=== PATIENT | female | born 1935 | race American Indian/Alaskan Native ===

== ENCOUNTER 2018-01-07 15:57 | Inpatient (IN) | payer MEDICARE, BC ==
[2018-01-07 16:22] VITALS: BMI 32.8
[2018-01-07 17:39] LABS: PH,URINE 7.5 (4.7-8.0); URINE APPEARANCE CLOUDY (CLEAR); URINE BILIRUBIN NEGATIVE (NEGATIVE); URINE BLOOD LARGE (NEGATIVE); URINE COLOR YELLOW (YELLOW); URINE GLUCOSE (UA) NEGATIVE (NEGATIVE); URINE LEUKOCYTE ESTERASE LARGE Leu/uL (NEGATIVE); URINE PROTEIN >=300 mg/dL (<30 mg/dL)
--- NOTE | 2018-01-07 17:42 | RAD ---
Date of service: 01/07/2018 HISTORY: Sepsis Patient COMPARISON: No prior. FINDINGS: LUNGS: No active pulmonary disease. PLEURA: No significant pleural effusion identified, no pneumothorax apparent. CARDIOVASCULAR: No radiographic findings to suggest acute or significant cardiovascular disease. OSSEOUS STRUCTURES: No significant abnormalities. VISUALIZED UPPER ABDOMEN: Normal. OTHER FINDINGS: None. IMPRESSION: No active disease.
[2018-01-07 17:48] LABS: URINE BACTERIA LARGE (NEG); URINE WBC TNTC /hpf (0-6)
[2018-01-07 18:00] LABS: VENOUS BLOOD GAS BASE EXCESS 0.1 mmol/L (0.0-2.0); VENOUS BLOOD GAS PO2 153 mm/Hg (30-55); VENOUS BLOOD PH 7.36 (7.32-7.43)
[2018-01-07 18:13] LABS: BASO # 0.02 K/mm3 (0.0-2.0); BASO % 0.2 % (0.0-3.0); EOS # 0.1 (0.0-0.7); EOS % 1.4 % (1.5-5.0); GRAN # 6.15 (1.4-6.5); GRAN % 73.1 % (50.0-68.0); HEMOGLOBIN 12.7 g/dL (12.0-16.0); LYMPH # 1.5 (1.2-3.4); LYMPH % 17.5 % (22.0-35.0); MEAN CELL VOLUME 84.3 fl (80.0-105.0); MEAN CORPUSCULAR HEMOGLOBIN 28.1 pg (25.0-35.0); MEAN CORPUSCULAR HGB CONC 33.3 g/dl (31.0-37.0); MEAN PLATELET VOLUME 9.7 fl (7.0-11.0); MONO # 0.7 (0.1-0.6); MONO % 7.8 % (1.0-6.0); RBC 4.52 10^6/uL (3.5-6.1); RED CELL DISTRIBUTION WIDTH 16.3 % (11.5-14.5); WHITE BLOOD COUNT 8.4 10^3/ul (4.5-11.0)
[2018-01-07 18:23] LABS: INR 1.03; PARTIAL THROMBOPLASTIN TIME 30.1 Seconds (25.1-36.5); PROTHROMBIN TIME 11.8 SECONDS (9.4-12.5)
[2018-01-07] MEDS ORDERED: cefTRIAXone 1 gm 1 GM/100 ML BAG IVPB STA (18:47)
[2018-01-07 19:10] LABS: ALBUMIN 3.7 g/dL (3.0-4.8); ALT/SGPT 26 U/L (7-56); AST/SGOT 21 U/L (14-36); BLOOD UREA NITROGEN 20 mg/dL (7-21); CALCIUM 8.9 mg/dL (8.4-10.5); GFR NON-AFRICAN AMERICAN > 60
[2018-01-07 19:21] LABS: TROPONIN I < 0.01 ng/mL
--- NOTE | 2018-01-07 20:03 | ED PDOC ---
Arrival/HPI - General Time Seen by Provider: 01/07/18 16:22 Historian: Family - History of Present Illness Narrative History of Present Illness (Text): 01/07/18 20:05 82yo female with pmhx of hypertension, CVA referred to ED for UTI infection. Per the RN, the granddaughter states PMD sees patient at home and referred her to ED after a positive UTI test. 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 Past Medical History - Provider Review Nursing Documentation Reviewed: Yes - Cardiac Hx Hypertension: Yes - Neurological Other/Comment: aphasic - Integumentary Other/Comment: with healed right heel and sacral decub. - Musculoskeletal/Rheumatological Hx Falls: No - Gastrointestinal Other/Comment: with gtt intact. - Genitourinary/Gynecological Other/Comment: with 2way goodson cath intact. - Psychiatric Hx Substance Use: No - Surgical History Other/Comment: FEEDING TUBE INSERTION - Anesthesia Hx Anesthesia: Yes Hx Anesthesia Reactions: No Hx Malignant Hyperthermia: No Family/Social History - Physician Review Nursing Documentation Reviewed: Yes Family/Social History: Unknown Family HX Smoking Status: Unknown If Ever Smoked Hx Alcohol Use: No Hx Substance Use: No Allergies/Home Meds Allergies/Adverse Reactions: Allergies No Known Allergies Allergy (Verified 01/07/18 19:39) Home Medications: Home Meds Medication Instructions Recorded Confirmed Cyclobenzaprine [Flexeril] 10 mg PEG HS 01/07/18 01/07/18 Review of Systems - Review of Systems Systems not reviewed;Unavailable: Other (Aphasic) Physical Exam Vital Signs Reviewed: Yes Vital Signs Temp Pulse Resp BP Pulse Ox 01/07/18 19:49 98.6 F 82 20 139/93 H 100 01/07/18 16:18 98.7 F 84 19 136/64 95 Temperature: Afebrile Blood Pressure: Normal Pulse: Regular Respiratory Rate: Normal Appearance: Positive for: Well-Appearing, Non-Toxic, Comfortable Pain Distress: None Mental Status: Positive for: Alert and Oriented X 3 (X3) - Systems Exam Head: Present: Atraumatic, Normocephalic Pupils: Present: PERRL Extroacular Muscles: Present: EOMI Conjunctiva: Present: Normal Mouth: Present: Moist Mucous Membranes Neck: Present: Normal Range of Motion Respiratory/Chest: Present: Clear to Auscultation, Good Air Exchange. No: Respiratory Distress, Accessory Muscle Use Cardiovascular: Present: Regular Rate and Rhythm, Normal S1, S2. No: Murmurs Abdomen: Present: Feeding Tubes (PEg tube noted in place with purulent discharge noted around the tube). No: Tenderness, Distention, Peritoneal Signs Back: Present: Normal Inspection Upper Extremity: Present: Other (Contracted right upper extremity secondary to old CVA). No: Cyanosis, Edema Lower Extremity: Present: Normal Inspection, Other (Contracted right lower extre mity secondary to old CVA). No: Edema Skin: Present: Warm, Dry, Normal Color. No: Rashes Psychiatric: Present: Alert, Oriented x 3 (X2) Medical Decision Making ED Course and Treatment: 01/07/18 20:21 Pt in ED for stated history. she is nonverbal, hemodynamically stable. Labs Blood culture Urine culture VBG wound culture EKG CXR EKG NSR @ 86bpm NSTEMI CXR NAD Labs reviewed with no leukocytosis and no lactate. She have UTI and Rocephin was ordered 01/07/18 20:24 Case was DW Vibha Toscano while he was in ED and pt was admitted to his service. He requested Dr. Jefferson consult. - Lab Interpretations Lab Results: 01/07/18 18:06 01/07/18 18:45 Lab Results 01/07/18 18:45: Sodium 131 L, Chloride 101, Potassium 4.6, Carbon Dioxide 25, Anion Gap 10, BUN 20, Creatinine 0.3 L, Est GFR ( Amer) > 60, Est GFR (Non-Af Amer) > 60, Random Glucose 94, Calcium 8.9, Phosphorus 4.1, Magnesium 1.9, Total Bilirubin 0.8, AST 21, ALT 26, Alkaline Phosphatase 108, Troponin I < 0.01, Total Protein 7.3, Albumin 3.7, Globulin 3.6, Albumin/Globulin Ratio 1.0 L 01/07/18 18:06: PT 11.8, INR 1.03, APTT 30.1 01/07/18 18:06: WBC 8.4, RBC 4.52, Hgb 12.7, Hct 38.1, MCV 84.3, MCH 28.1, MCHC 33.3, RDW 16.3 H, Plt Count 390, MPV 9.7, Gran % 73.1 H, Lymph % (Auto) 17.5 L, [place] % (Auto) 7.8 H, Eos % (Auto) 1.4 L, Baso % (Auto) 0.2, Gran # 6.15, Lymph # (Auto) 1.5, [place] # (Auto) 0.7 H, Eos # (Auto) 0.1, Baso # (Auto) 0.02 01/07/18 17:15: Urine Color Yellow, Urine Appearance Cloudy, Urine pH 7.5, Ur Specific [place] 1.025, Urine Protein >=300 H, Urine Glucose (UA) Negative, Urine Ketones Negative, Urine Blood Large H, Urine Nitrate Negative, Urine Bilirubin Negative, Urine Urobilinogen 2.0 H, Ur Leukocyte Esterase Large H, Ur ine RBC 5 - 10, Urine WBC Tntc, Ur Epithelial Cells 3 - 4, Urine Bacteria Large 01/07/18 17:00: pO2 153 H, VBG pH 7.36, VBG pCO2 46.0, VBG HCO3 26.0, VBG Total CO2 27.4, VBG O2 Sat (Calc) 99.9 H, VBG Base Excess 0.1, VBG Potassium 6.3 H*, Sodium 128.0 L, Chloride 100.0, Glucose 99, Lactate 1.4, FiO2 21.0, Venous Blood Potassium 6.3 H* - RAD Interpretation Radiology Orders: 01/07/18 16:38 CHEST PORTABLE [RAD] Stat - Medication Orders Current Medication Orders: Discontinued Medications Ceftriaxone Sodium (Rocephin 1 Gram Ivpb) 1 gm in 100 mls @ 200 mls/hr IVPB STAT STA; Protocol Stop: 01/07/18 19:16 Last Admin: 01/07/18 19:59 Dose: 200 mls/hr eMAR Start Stop Document 01/07/18 19:59 LA (Rec: 01/07/18 20:00 LA [facility]) Intravenous Solution Start Date 01/07/18 Start Time 20:00 End Date 01/07/18 End time 20:30 Total Infusion Time 30 Disposition/Present on Arrival - Present on Arrival Any Indicators Present on Arrival: No History of DVT/PE: No History of Uncontrolled Diabetes: No Urinary Catheter: Yes (indwelling catheter) History Surgical Site Infection Following: None - Disposition Have Diagnosis and Disposition been Completed?: Yes Diagnosis: UTI (urinary tract infection) Disposition: HOSPITALIZED Disposition Time: 19:35 Patient Plan: Admission Patient Problems: Current Active Problems Problem Status Onset UTI (urinary tract infection) Acute Condition: FAIR
--- NOTE | 2018-01-07 23:16 | CARD ---
APPROVED REPORT Date of service: 01/07/2018 EKG Measurement Heart [id number] <Conclusion> Normal sinus rhythm Low voltage QRS Borderline ECG
[2018-01-07] MEDS: Sodium Chloride 0.45% 1,000 ML IV SCH (23:45)
[2018-01-08] MEDS: Pantoprazole 40 mg Susp UD PEG SCH (05:32)
[2018-01-08 06:26] LABS: HEMOGLOBIN 11.5 g/dL (12.0-16.0); MEAN CORPUSCULAR HEMOGLOBIN 27.4 pg (25.0-35.0); MEAN CORPUSCULAR HGB CONC 32.3 g/dl (31.0-37.0); MEAN PLATELET VOLUME 9.8 fl (7.0-11.0); RBC 4.19 10^6/uL (3.5-6.1); RED CELL DISTRIBUTION WIDTH 16.2 % (11.5-14.5); WHITE BLOOD COUNT 7.8 10^3/ul (4.5-11.0)
[2018-01-08 07:09] LABS: ALBUMIN 3.5 g/dL (3.0-4.8); ALT/SGPT 28 U/L (7-56); AST/SGOT 30 U/L (14-36); BLOOD UREA NITROGEN 14 mg/dL (7-21); GFR NON-AFRICAN AMERICAN > 60
--- NOTE | 2018-01-08 07:49 | HP ---
HISTORY OF PRESENT ILLNESS: I have known Bonny for a while now. I have been doing hospital course on her. She is basically bedridden from old CVAs. I discussed with the family today that there is a positive urinary tract infection. She had antibiotics from the outpatient and now she was sent to the emergency room. She is an 82-year-old -[place] female who has UTI from home. 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 She is aphasic. She opens her eyes. She has a two-way Fish. She has a feeding tube. She is nonverbal. Hypertension in the family. No smoke, no drinking, and no drugs. ALLERGIES: NO KNOWN DRUG ALLERGIES. MEDICATIONS: She is on aspirin, Nexium, Flexeril, Lopressor, and Norvasc at home. REVIEW OF SYSTEMS: She is aphasic, unable to talk, but I did ask her if she knew my voice and she shook her head yes, that is basically her baseline. PHYSICAL EXAMINATION: VITAL SIGNS: She has a 98.7 temp, 84 pulse, 19 respiratory rate, 136/64 blood pressure, and 95% O2 sat on room air. GENERAL: She is resting comfortably in bed. It looks like she sleeping, but she listens. No apparent toxicity, alert. HEENT: Head is atraumatic and normocephalic. Throat is dry. NECK: Supple. HEART: Regular rate. Normal S1 and S2. LUNGS: Decreased breath sounds bilaterally with poor inspiration. No wheezes, rhonchi, or rales. ABDOMEN: Soft and nontender. Positive bowel sounds. No apparent guarding or rebound. There is a PEG tube in place with purulent discharge noted on the tube. BACK: Difficult to tell at this time. EXTREMITIES: Well contracted. She has history of heel ulcers and sacral ulcers. NEUROLOGIC: She is alert. LABORATORY DATA: She has multiple tests done. She has a urine with large blood, large leukocyte esterase, and large bacteria. She has 131 sodium, potassium 4.6, BUN 20, creatinine 0.3, GFR is greater than 62, sugar is 94, calcium is 8.9, phosphorus 4.1, magnesium 1.9, total bili is 0.88, AST is 28, ALT is 26, alk phos 108, troponin I is less than 0.01, total protein is 7.3, albumin is 3.7. Blood gas, she has a lactate of 1.4. She has 1.03 INR, 8.4 white count, 12.7 hemoglobin, 38.1 hematocrit with 390 platelets. She has a chest x-ray, no acute disease. ASSESSMENT AND PLAN: She did have Rocephin IV, IV fluids. We put back on regular medications. She will have an infectious disease consult. She is here for urinary tract infection, possible percutaneous endoscopic gastrostomy tube infection. She will have a consult with Infectious Disease, will be on Rocephin, will check labs tomorrow. Domenic Dunne DO
[2018-01-08] MEDS: cefTRIAXone 1 gm 1 GM/100 ML BAG IVPB SCH (10:31)
--- NOTE | 2018-01-08 11:03 | PN ---
DATE: 01/08/2018 SUBJECTIVE: I saw her resting comfortably in bed. She was very alert. She was looking at me. Better than yesterday, a little out of it. Much improved, that is a good start. PHYSICAL EXAMINATION: VITAL SIGNS: 97.8 temp, 89 pulse, 116/67 blood pressure, 20 respiratory rate, 99% O2 sat on 2 L nasal cannula. GENERAL: She does not talk, but she does look and gives the expression. HEENT: Head is atraumatic, normocephalic. HEART: Regular rate. LUNGS: Decreased breath sounds, but clear. ABDOMEN: Soft, obese, nontender. Positive PEG tube. I am going to start PEG tube feedings today which she was getting at home at 30 mL an hour. I discussed that with the nurse. EXTREMITIES: Contracted. She had a UTI. LABORATORY DATA: She has a 7.8 white count, 11.5 hemoglobin, 35.6 hematocrit with 354 platelets. She has a 134 sodium, potassium is 4.2, BUN 14, creatinine 0.3, GFR is greater than 60, sugar is 91, calcium is 9, total bili is 0.9, AST is 30, ALT is 28, alk phos 104, troponin I is less than 0.01, total protein 7.1. Urine with large leukocytes, large blood, large bacteria. Waiting for the micro to come back. ASSESSMENT AND PLAN: She will be on IV antibiotics as per Infectious Disease and will call me if anything changes. She is here for a urinary tract infection. Domenic Dunne DO
--- NOTE | 2018-01-08 21:06 | CON ---
DATE: 01/08/2018 The patient is seen earlier today in room 362, bed 2. CHIEF COMPLAINT: Positive urine culture x1 day duration. HISTORY OF PRESENT ILLNESS: This is an 82-year-old female from home with hypertension, cerebrovascular accident, aphasia. The patient's PMD had ordered urine culture and the urine culture was positive. It is unclear if the patient had symptoms or if there was a change in mental status. Review of systems is difficult to obtain. No fevers reported here. No chills. No shortness of breath. No cough. No hemoptysis. No abdominal pain, diarrhea, constipation observed by the nursing staff. No rash. PAST MEDICAL HISTORY: Significant for hypertension, cerebrovascular accident, and aphasia. PAST SURGICAL HISTORY: Noncontributory. ALLERGIES: THE PATIENT HAS NO KNOWN ALLERGIES. MEDICATIONS AT HOME: Include Norvasc, Lopressor, Nexium, aspirin, and Flexeril. PHYSICAL EXAMINATION: On exam, she is in bed, appearing much older than her stated age with a blood pressure of 130/90, respiratory rate of 20. Examination of HEENT is unremarkable. Neck is supple. Lungs have decreased breath sounds. Heart exam, normal S1, S2. Abdomen examination is soft, nontender. No organomegaly. No rebound. No guarding. No masses. LABORATORY EXAMINATION: Reveals a white count of 8.4, hemoglobin of 12, and platelets of 390. Coagulation is noted and chemistries reveal a BUN of 20, creatinine of 0.3. Urinalysis is noted and too numerous to count wbc's, large bacteria, there is proteinuria, there is also large leukocyte esterase, and nitrites are negative. Microbiology is pending, and the patient's last year's microbiology did have Pseudomonas and Enterococcus in the urine. In 2017, also had Enterococcus in the urine, and the patient had a chest x-ray which was negative. EKG as noted. History and physical examination is reviewed. ASSESSMENT AND PLAN: This is an 82-year-old female from home with hypertension, cerebrovascular accident, aphasia with, 1. Urinary tract infection. We will check on the urine culture and blood cultures and currently start her on ceftriaxone, and we will make further recommendations upon availability. We will follow. Rafael MD Li [facility] # [phone]
[2018-01-09] MEDS: Sodium Chloride 0.45% 1,000 ML IV SCH (02:40)
[2018-01-09] MEDS: Pantoprazole 40 mg Susp UD PEG SCH (06:08)
[2018-01-09 06:29] LABS: HEMOGLOBIN 11.4 g/dL (12.0-16.0); MEAN CELL VOLUME 85.3 fl (80.0-105.0); MEAN CORPUSCULAR HEMOGLOBIN 27.4 pg (25.0-35.0); MEAN CORPUSCULAR HGB CONC 32.1 g/dl (31.0-37.0); MEAN PLATELET VOLUME 9.5 fl (7.0-11.0); RBC 4.16 10^6/uL (3.5-6.1); RED CELL DISTRIBUTION WIDTH 16.4 % (11.5-14.5); WHITE BLOOD COUNT 7.5 10^3/ul (4.5-11.0)
[2018-01-09 07:12] LABS: ALB/GLOB RATIO 0.9 (1.1-1.8); ALBUMIN 3.4 g/dL (3.0-4.8); ALT/SGPT 26 U/L (7-56); AST/SGOT 21 U/L (14-36); BLOOD UREA NITROGEN 11 mg/dL (7-21); CALCIUM 8.9 mg/dL (8.4-10.5); GFR NON-AFRICAN AMERICAN > 60
[2018-01-09] MEDS: cefTRIAXone 1 gm 1 GM/100 ML BAG IVPB SCH (09:53)
[2018-01-09] MEDS: metroNIDAZOLE IV 500 mg/100 ml 500 MG/100 ML BAG IVPB SCH ×2 (13:02→22:42)
--- NOTE | 2018-01-09 13:08 | RAD ---
Date of service: 01/09/2018 HISTORY: shortness of breath COMPARISON: 01/07/2018 FINDINGS: LUNGS: No active pulmonary disease. PLEURA: No significant pleural effusion identified, no pneumothorax apparent. CARDIOVASCULAR: No atherosclerotic calcification present Moderate cardiomegaly OSSEOUS STRUCTURES: No significant abnormalities. VISUALIZED UPPER ABDOMEN: Moderate size hiatal hernia OTHER FINDINGS: None. IMPRESSION: No active disease.
--- NOTE | 2018-01-09 14:16 | CP.PCM.PN ---
<Charlette Cooper - Last Filed: 01/09/18 17:03> Subjective - Date & Time of Evaluation Date of Evaluation: 01/09/18 Time of Evaluation: 10:45 - Subjective Subjective: PGY-1 Medicine Progress Note for Dr. James's service Patient seen and examined at bedside. Patient 12 point ROS limited secondary to patient clinical condition. Objective - Vital Signs/Intake and Output Vital Signs (last 24 hours): Temp Pulse Resp BP Pulse Ox 98.5 F 94 H 20 122/70 98 01/09/18 08:12 01/09/18 09:53 01/09/18 08:12 01/09/18 12:39 01/09/18 08:12 Intake and Output: 01/09/18 01/09/18 06:59 18:59 Intake Total 1810 Output Total 475 Balance 1335 - Medications Medications: Current Medications Amlodipine Besylate (Norvasc) 10 mg PEG DAILY [facility] Last Admin: 01/09/18 09:53 Dose: 10 mg Aspirin (Aspirin Chewable) 81 mg PEG DAILY ANTHONY Last Admin: 01/09/18 09:53 Dose: 81 mg Cyclobenzaprine HCl (Flexeril) 10 mg PEG HS [facility]ONY Last Admin: 01/08/18 22:20 Dose: 10 mg Sodium Chloride (Sodium Chloride 0.45%) 1,000 mls @ 40 mls/hr IV .Q24H [facility]ONY Last Admin: 01/09/18 02:40 Dose: 40 mls/hr Ceftriaxone Sodium (Rocephin 1 Gram Ivpb) 1 gm in 100 mls @ 100 mls/hr IVPB DAILY ANTHONY; Protocol Last Admin: 01/09/18 09:53 Dose: 100 mls/hr Metronidazole (Flagyl) 500 mg in 100 mls @ 100 mls/hr IVPB Q8 ANTHONY; Protocol Last Admin: 01/09/18 13:02 Dose: 100 mls/hr Metoprolol Tartrate (Lopressor) 25 mg PO BID AN[facility]ONY Last Admin: 01/09/18 09:53 Dose: 25 mg Pantoprazole Sodium (Protonix Susp) 40 mg PEG 0600 ANTHONY Last Admin: 01/09/18 06:08 Dose: 40 mg - Labs Labs: 01/09/18 05:20 01/09/18 05:20 PT 11.8 SECONDS (9.4-12.5) 01/07/18 18:06 INR 1.03 01/07/18 18:06 APTT 30.1 Seconds (25.1-36.5) 01/07/18 18:06 - Constitutional Appears: Non-toxic, No Acute Distress - Head Exam Head Exam: NORMAL INSPECTION, NORMOCEPHALIC - Eye Exam Eye Exam: EOMI, Normal appearance. absent: Nystagmus, Scleral icterus - ENT Exam ENT Exam: Mucous Membranes Moist - Respiratory Exam Respiratory Exam: Clear to Ausculation Bilateral. absent: Rales, Rhonchi, Wheezes, Respiratory Distress - Cardiovascular Exam Cardiovascular Exam: REGULAR RHYTHM, +S1, +S2 - GI/Abdominal Exam GI & Abdominal Exam: Soft, Normal Bowel Sounds. absent: Distended, Firm, Guarding, Tenderness Additional comments: Has PEG tube in place Suprapubic catheter with 2 way goodson - Extremities Exam Extremities Exam: Normal Inspection. absent: Calf Tenderness, Pedal Edema - Back Exam Additional comments: sacral ulcers - Neurological Exam Neurological Exam: Alert, Awake - Skin Additional comments: sacral ulcers and foot ulcers noted Assessment and Plan - Assessment and Plan (Free Text) Assessment: 82 yo w/ PMHx of hypertension and CVA referred to ED for UTI infection. Patient urine cx positive for E coli and Enterococcus faceaelis. Wound culture positive gram negative rods. Plan: UTI 01/07 U/A- shows large L.E; large blood; large bacteria ID consulted- Dr. Jefferson- recommendations appreciated Afebrile; no leukocytosis noted Rocephin 1 gm IVPB PEG tube infection Wound cx positive for gram negative olive Metronidazole 500mg IVPB q8 Tube feeds at 30mls/hr -held Labored Breathing 01/09/18- Cxray shows no signs of active disease ABG non concerning 1x dose of Lasix 20mg IVP once 92 % o2 sat on 3L n.c HTN Amlodipine 10mg peg daily Metoprolol 25mg po bid Hx of CVA Patient aphasic; bedridden Aspirin 81mg PEG daily Cyclobenzaprine 10 mg peg HS PPx GI ppx- Protonix 40mg po HS <Umesh James - Last Filed: 01/11/18 14:26> Objective - Vital Signs/Intake and Output Vital Signs (last 24 hours): Temp Pulse Resp BP Pulse Ox 99.3 F 90 20 126/68 98 10/20/18 08:27 01/11/18 10:24 01/11/18 08:27 01/11/18 10:24 01/11/18 08:27 Intake and Output: 01/11/18 01/11/18 06:59 18:59 Output Total 1410 Balance -1410 - Medications Medications: Current Medications Amlodipine Besylate (Norvasc) 10 mg PEG DAILY [facility] Last Admin: 01/11/18 10:24 Dose: 10 mg Aspirin (Aspirin Chewable) 81 mg PEG DAILY AN[facility]ONY Last Admin: 01/11/18 10:23 Dose: 81 mg Cyclobenzaprine HCl (Flexeril) 10 mg PEG HS ANTHONY Last Admin: 01/10/18 21:28 Dose: 10 mg Heparin Sodium (Porcine) (Heparin) 5,000 units SC Q8 ANTHONY; Protocol Last Admin: 01/11/18 14:17 Dose: 5,000 units Metronidazole (Flagyl) 500 mg in 100 mls @ 100 mls/hr IVPB Q8 ANTHONY; Protocol Last Admin: 01/11/18 14:18 Dose: 100 mls/hr Cefepime HCl (Maxipime 1gm) 1 gm in 100 mls @ 25 mls/hr IVPB Q8 ANTHONY; Protocol Stop: 01/15/18 14:01 Last Admin: 01/11/18 05:28 Dose: 25 mls/hr Metoprolol Tartrate (Lopressor) 25 mg PO BID [facility] Last Admin: 01/11/18 10:24 Dose: 25 mg Pantoprazole Sodium (Protonix Susp) 40 mg PEG 0600 ANTHONY Last Admin: 01/11/18 05:28 Dose: 40 mg - Labs Labs: 01/11/18 07:00 01/11/18 07:00 PT 11.8 SECONDS (9.4-12.5) 01/07/18 18:06 INR 1.03 01/07/18 18:06 APTT 30.1 Seconds (25.1-36.5) 01/07/18 18:06 Attending/Attestation - Attestation I have personally seen and examined this patient.: Yes I have fully participated in the care of the patient.: Yes I have reviewed all pertinent clinical information, including history, physical exam and plan: Yes Notes (Text): 01/11/18 14:25 Medical record note made by the resident after discussion with my direction and input after the patient was personally seen and examined by me. I have reviewed the chart and agree that the record accurately reflects by personal performance of the history, physical exam, data review, and medical decision-making, in the course for the patient. I have also personally directed the plan of care. Patient was found top be hypoxic and dyspnic, likely due to Aspiration.Chest X ray is off poor quality.Flagyl has been added to cover for aspiration Pneumonia. Prognosis is guarded
[2018-01-09 14:27] LABS: ARTERIAL BLOOD GAS HCO3 24.2 mmol/L (21-28); ARTERIAL BLOOD GAS O2 SAT 99.4 % (95-98); ARTERIAL BLOOD GAS PCO2 34 mm/Hg (35-45); ARTERIAL BLOOD GAS PH 7.46 (7.35-7.45); ARTERIAL BLOOD GAS TCO2 25.2 mmol.L (22-28)
--- NOTE | 2018-01-09 15:05 | PN ---
DATE: 01/09/2018 SUBJECTIVE: The patient is seen earlier today in 362, bed 2. No fevers and no chills. Overall in poor condition, though. PHYSICAL EXAMINATION: VITAL SIGNS: On exam, temperature is 98, blood pressure is 120/70, respiratory rate of 20, heart rate of 94. HEENT: Examination of HEENT is unremarkable. NECK: Supple. LUNGS: Have decreased breath sounds. HEART: Normal S1, S2. ABDOMEN: Soft, nontender. LABORATORY DATA: Laboratory examination reveals the patient to have white count of 7.5, hemoglobin of 11, platelets of 334. Chemistries: BUN of 11, creatinine of 0.4. Urinalysis is noted. Microbiology is reviewed. Blood cultures are negative. Urine culture has E. coli and Enterococcus. Abdominal culture has gram-negative olive. Review of orders reveals the patient to be on Flagyl and ceftriaxone. The E. coli in the urine culture is resistant to Cipro. It is sensitive to ceftriaxone. The patient had a chest x-ray. No active disease. ASSESSMENT AND PLAN: An 82-year-old female with hypertension, cerebrovascular accident, aphasia with #1 is Escherichia coli and Enterococcus urinary tract infection. Currently on ceftriaxone. The patient is also on Flagyl. We will follow with you. Rafael Jefferson MD
[2018-01-10] MEDS: Sodium Chloride 0.45% 1,000 ML IV SCH (05:37)
[2018-01-10] MEDS: metroNIDAZOLE IV 500 mg/100 ml 500 MG/100 ML BAG IVPB SCH ×3 (05:38→21:27)
[2018-01-10] MEDS: Pantoprazole 40 mg Susp UD PEG SCH (05:39)
--- NOTE | 2018-01-10 06:15 | PQF ---
PROVIDER RESPONSE TEXT: No uti , pos urine culture colinizer not a pathogen Peg tube did contribute to peg site infection REVIEWER QUERY TEXT: Cause and Effect Relationship Please clarify in documentation the relationship, if any, between and Such as: -- Conditions are due to or associated -- Unrelated to each other -- Other, please specify The patient's Clinical Indicators include: Query created by: Brianne Smart on 01/09/2018 10:20 AM Electronically signed by: Rafael Jefferson MD 01/10/2018 6:11 AM
[2018-01-10 08:56] LABS: BASO # 0.01 K/mm3 (0.0-2.0); BASO % 0.1 % (0.0-3.0); EOS # 0.1 (0.0-0.7); EOS % 0.8 % (1.5-5.0); GRAN # 6.55 (1.4-6.5); GRAN % 78.7 % (50.0-68.0); HEMOGLOBIN 11.8 g/dL (12.0-16.0); LYMPH # 0.9 (1.2-3.4); LYMPH % 10.3 % (22.0-35.0); MEAN CELL VOLUME 84.4 fl (80.0-105.0); MEAN CORPUSCULAR HEMOGLOBIN 27.5 pg (25.0-35.0); MEAN CORPUSCULAR HGB CONC 32.6 g/dl (31.0-37.0); MEAN PLATELET VOLUME 9.2 fl (7.0-11.0); MONO # 0.8 (0.1-0.6); MONO % 10.1 % (1.0-6.0); RBC 4.29 10^6/uL (3.5-6.1); RED CELL DISTRIBUTION WIDTH 16.1 % (11.5-14.5); WHITE BLOOD COUNT 8.3 10^3/ul (4.5-11.0)
[2018-01-10] MEDS: cefTRIAXone 1 gm 1 GM/100 ML BAG IVPB SCH (09:29)
--- NOTE | 2018-01-10 12:49 | CP.PCM.PN ---
<Charlette Cooper - Last Filed: 01/10/18 12:46> Subjective - Date & Time of Evaluation Date of Evaluation: 01/10/18 Time of Evaluation: 10:15 - Subjective Subjective: PGY-1 Medicine Progress note for Dr. James's service Patient seen and examined at bedside. 12 point ROS limited 2/2 patient clinical condition. Objective - Vital Signs/Intake and Output Vital Signs (last 24 hours): Temp Pulse Resp BP Pulse Ox 98.8 F 94 H 18 124/77 99 01/10/18 06:00 01/10/18 09:30 01/10/18 06:00 01/10/18 09:30 01/10/18 06:00 Intake and Output: 01/10/18 01/10/18 06:59 18:59 Intake Total 675 Output Total 400 Balance 275 - Medications Medications: Current Medications Amlodipine Besylate (Norvasc) 10 mg PEG DAILY [facility] Last Admin: 01/10/18 09:29 Dose: 10 mg Aspirin (Aspirin Chewable) 81 mg PEG DAILY [facility] Last Admin: 01/10/18 09:29 Dose: 81 mg Cyclobenzaprine HCl (Flexeril) 10 mg PEG HS [facility] Last Admin: 01/09/18 22:44 Dose: 10 mg Metronidazole (Flagyl) 500 mg in 100 mls @ 100 mls/hr IVPB Q8 [facility]; Protocol Last Admin: 01/10/18 05:38 Dose: 100 mls/hr Cefepime HCl (Maxipime 1gm) 1 gm in 100 mls @ 25 mls/hr IVPB Q8 [facility]; Protocol Stop: 01/15/18 14:01 Metoprolol Tartrate (Lopressor) 25 mg PO BID [facility] Last Admin: 01/10/18 09:30 Dose: 25 mg Pantoprazole Sodium (Protonix Susp) 40 mg PEG 0600 [facility] Last Admin: 01/10/18 05:39 Dose: 40 mg - Labs Labs: 01/10/18 08:30 01/09/18 05:20 PT 11.8 SECONDS (9.4-12.5) 01/07/18 18:06 INR 1.03 01/07/18 18:06 APTT 30.1 Seconds (25.1-36.5) 01/07/18 18:06 - Additional Findings Additional findings: - Constitutional Appears: Non-toxic, No Acute Distress - Head Exam Head Exam: NORMAL INSPECTION, NORMOCEPHALIC - Eye Exam Eye Exam: EOMI, Normal appearance. absent: Nystagmus, Scleral icterus - ENT Exam ENT Exam: Mucous Membranes Moist - Respiratory Exam Respiratory Exam: Clear to Ausculation Bilateral. absent: Rales, Rhonchi, Wheezes, Respiratory Distress - Cardiovascular Exam Cardiovascular Exam: REGULAR RHYTHM, +S1, +S2 - GI/Abdominal Exam GI & Abdominal Exam: Soft, Normal Bowel Sounds. absent: Distended, Firm, Guarding, Tenderness Additional comments: Has PEG tube in place Suprapubic catheter with 2 way goodson - Extremities Exam Extremities Exam: Normal Inspection. absent: Calf Tenderness, Pedal Edema - Back Exam Additional comments: sacral ulcers - Neurological Exam Neurological Exam: Alert, Awake - Skin Additional comments: sacral ulcers and foot ulcers noted Assessment and Plan - Assessment and Plan (Free Text) Assessment: 82 yo w/ PMHx of hypertension and CVA referred to ED for UTI infection. Patient urine cx positive for E coli and Enterococcus faceaelis. Wound culture positive gram negative rods and positive for pseudmonoas aerigunosa Plan: UTI 01/07 U/A- shows large L.E; large blood; large bacteria ID consulted- Dr. Jefferson- flagyl, cefepime Afebrile; no leukocytosis noted Cefepime 1gm IVPB q8 [facility] (started at 01-10) Flagyl 500mg IVPB q8 [facility] (started 01-10) PEG tube infection Wound cx positive for gram negative olive and pseudomonas Metronidazole 500mg IVPB q8 Tube feeds at 30mls/hr HTN Amlodipine 10mg peg daily Metoprolol 25mg po bid Hx of CVA Patient aphasic; bedridden Aspirin 81mg PEG daily Cyclobenzaprine 10 mg peg HS PPx GI ppx- Protonix 40mg po HS DVT ppx- Heparin 5000 units sc q8 Medical Management discussed with Dr. James PGY-1 Charlette Cooper <Umesh James - Last Filed: 01/11/18 14:25> Objective - Vital Signs/Intake and Output Vital Signs (last 24 hours): Temp Pulse Resp BP Pulse Ox 99.3 F 90 20 126/68 98 01/11/18 08:27 01/11/18 10:24 01/11/18 08:27 01/11/18 10:24 01/11/18 08:27 Intake and Output: 01/11/18 01/11/18 06:59 18:59 Output Total 1410 Balance -1410 - Medications Medications: Current Medications Amlodipine Besylate (Norvasc) 10 mg PEG DAILY [facility] Last Admin: 01/11/18 10:24 Dose: 10 mg Aspirin (Aspirin Chewable) 81 mg PEG DAILY [facility] Last Admin: 01/11/18 10:23 Dose: 81 mg Cyclobenzaprine HCl (Flexeril) 10 mg PEG HS [facility] Last Admin: 01/10/18 21:28 Dose: 10 mg Heparin Sodium (Porcine) (Heparin) 5,000 units SC Q8 [facility]; Protocol Last Admin: 01/11/18 14:17 Dose: 5,000 units Metronidazole (Flagyl) 500 mg in 100 mls @ 100 mls/hr IVPB Q8 [facility]; Protocol Last Admin: 01/11/18 14:18 Dose: 100 mls/hr Cefepime HCl (Maxipime 1gm) 1 gm in 100 mls @ 25 mls/hr IVPB Q8 [facility]; Protocol Stop: 01/15/18 14:01 Last Admin: 01/11/18 05:28 Dose: 25 mls/hr Metoprolol Tartrate (Lopressor) 25 mg PO BID [facility] Last Admin: 01/11/18 10:24 Dose: 25 mg Pantoprazole Sodium (Protonix Susp) 40 mg PEG 0600 [facility] Last Admin: 01/11/18 05:28 Dose: 40 mg - Labs Labs: 01/11/18 07:00 01/11/18 07:00 PT 11.8 SECONDS (9.4-12.5) 01/07/18 18:06 INR 1.03 01/07/18 18:06 APTT 30.1 Seconds (25.1-36.5) 01/07/18 18:06 Attending/Attestation - Attestation I have personally seen and examined this patient.: Yes I have fully participated in the care of the patient.: Yes I have reviewed all pertinent clinical information, including history, physical exam and plan: Yes Notes (Text): 01/11/18 14:24 Medical record note made by the resident after discussion with my direction and input after the patient was personally seen and examined by me. I have reviewed the chart and agree that the record accurately reflects by personal performance of the history, physical exam, data review, and medical decision-making, in the course for the patient. I have also personally directed the plan of care.
[2018-01-10] MEDS: Cefepime 1gm in NS 100ml 1 GM/100 ML BAG IVPB SCH ×2 (13:13→21:30)
--- NOTE | 2018-01-10 19:20 | PN ---
DATE: 01/10/2018 SUBJECTIVE: The patient is in bed, in no acute distress, nontoxic. PHYSICAL EXAMINATION: VITAL SIGNS: Temperature is 98, blood pressure is 120/70, respiratory rate of 18, heart rate of 94. HEENT: Examination of HEENT is unremarkable. NECK: Supple. LUNGS: Have decreased breath sounds. HEART: Normal S1 and S2. ABDOMEN: Soft, nontender. LABORATORY DATA: Laboratory examination reveals a white count of 8.3, hemoglobin of 11, platelets of 309. Chemistries reveals a BUN of 11, creatinine of 0.4. Urinalysis is noted. Microbiology is noted. ASSESSMENT AND PLAN: An 82-year-old female with hypertension, cerebrovascular accident, aphasia with #1 is Escherichia coli and Enterococcus urinary tract infection. The patient is also most likely a colonizer because of difficult to tell . The patient also does have Pseudomonas from the percutaneous endoscopic gastrostomy tube site, which appears to be improving. Currently, on cefepime and Flagyl. We will complete with a short course of antibiotics. Rafael Jefferson MD
[2018-01-11] MEDS: metroNIDAZOLE IV 500 mg/100 ml 500 MG/100 ML BAG IVPB SCH ×2 (05:27→14:18)
[2018-01-11] MEDS: Pantoprazole 40 mg Susp UD PEG SCH (05:28)
[2018-01-11] MEDS: Cefepime 1gm in NS 100ml 1 GM/100 ML BAG IVPB SCH ×3 (05:28→22:06)
[2018-01-11 07:59] LABS: BASO # 0.01 K/mm3 (0.0-2.0); BASO % 0.2 % (0.0-3.0); EOS # 0.1 (0.0-0.7); EOS % 1.4 % (1.5-5.0); GRAN # 4.67 (1.4-6.5); GRAN % 72.9 % (50.0-68.0); HEMOGLOBIN 11.3 g/dL (12.0-16.0); LYMPH # 0.9 (1.2-3.4); LYMPH % 13.8 % (22.0-35.0); MEAN CELL VOLUME 83.9 fl (80.0-105.0); MEAN CORPUSCULAR HEMOGLOBIN 27.2 pg (25.0-35.0); MEAN CORPUSCULAR HGB CONC 32.4 g/dl (31.0-37.0); MEAN PLATELET VOLUME 9.7 fl (7.0-11.0); MONO # 0.8 (0.1-0.6); MONO % 11.7 % (1.0-6.0); RBC 4.16 10^6/uL (3.5-6.1); RED CELL DISTRIBUTION WIDTH 16.1 % (11.5-14.5); WHITE BLOOD COUNT 6.4 10^3/ul (4.5-11.0)
[2018-01-11 08:06] LABS: ALB/GLOB RATIO 0.9 (1.1-1.8); ALBUMIN 3.3 g/dL (3.0-4.8); ALT/SGPT 25 U/L (7-56); AST/SGOT 24 U/L (14-36); BLOOD UREA NITROGEN 12 mg/dL (7-21); CALCIUM 8.4 mg/dL (8.4-10.5); GFR NON-AFRICAN AMERICAN > 60
[2018-01-11 08:27] VITALS: RESP 20; O2SAT 98
--- NOTE | 2018-01-11 13:58 | PN ---
DATE: 01/11/2018 SUBJECTIVE: I saw Bonny resting comfortably in bed. She is here with UTI and IV antibiotics. 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 She looks calm. She looked at me that is her baseline. OBJECTIVE: VITAL SIGNS: She has a 99.3 temperature, 90 pulse, 126/60 blood pressure, 20 respiratory rate, 98% O2 sat on 2 liters. GENERAL: She is nonverbal. HEENT: Head is atraumatic, normocephalic. HEART: Regular rate with decreased breath sounds, but clear. ABDOMEN: Soft. EXTREMITIES: Contracted. No edema. CURRENT MEDICATIONS: She is currently on aspirin, Flagyl IV, Flexeril, heparin, Lopressor, Maxipime IV, Norvasc, and Protonix. LABORATORY DATA: She has a 132 sodium, potassium 3.7, BUN 12, creatinine 0.3, GFR is greater than 60, sugar 97, calcium 8.4, total bili is 0.9, AST is 24, ALT is 25, alk phos 104, total protein 6.9. 6.4 white count, 11.3 hemoglobin, 34.9 hematocrit with 380 platelets. She had a Pseudomonas aeruginosa and E. coli in cultures. ASSESSMENT AND PLAN: She is being seen by Infectious Disease, where Infectious Disease tells me to take her off the IV and put her on p.o. I will discharge her home. I will continue with aggressive treatment and care on Bonny Ott. We will check her labs tomorrow. Hopefully, soon we can get her transferred to p.o. and discharge. Here for urinary tract infection. Thank you very much. Domenic Dunne DO
[2018-01-11 21:05] LABS: URINE BILIRUBIN NEGATIVE (NEGATIVE); URINE BLOOD SMALL (NEGATIVE); URINE GLUCOSE (UA) NEGATIVE (NEGATIVE); URINE LEUKOCYTE ESTERASE LARGE Leu/uL (NEGATIVE); URINE PROTEIN NEGATIVE mg/dL (<30 mg/dL); URINE UROBILINOGEN 0.2 E.U./dL (<1 E.U./dL)
[2018-01-11 21:06] LABS: URINE APPEARANCE SLIGHT-CLOUDY (CLEAR); URINE COLOR YELLOW (YELLOW)
[2018-01-11 21:13] LABS: URINE EPITHELIAL CELLS 0 - 2 /hpf (0-5)
[2018-01-11 21:14] LABS: URINE BACTERIA SMALL (NEG)
--- NOTE | 2018-01-12 01:06 | PN ---
DATE: 01/11/2018 SUBJECTIVE: The patient is in bed, no acute distress, nontoxic. PHYSICAL EXAMINATION: VITAL SIGNS: The patient has a temperature of 100.3, blood pressure is 130/80, respiratory rate of 18. HEENT: Unremarkable. NECK: Supple. LUNGS: Have decreased breath sounds. HEART: Normal S1 and S2. ABDOMEN: Soft. LABORATORY DATA: Reveals a white count of 6.4 and hemoglobin 11. BUN of 12 and creatinine of 0.3. Urinalysis is noted and microbiology reveals the patient's abdomen has Pseudomonas, Klebsiella, Staph aureus. Blood cultures are negative. ASSESSMENT AND PLAN: This is an 82-year-old female with hypertension, cerebrovascular accident, and aphasia. Escherichia coli, Enterococcus urinary tract infection, most likely a colonizer, does have Pseudomonas, percutaneous tube. On today's exam, PEG tube is better and resolved. The patient did have a new fever of 100.3 today in the phase of cefepime and Flagyl therapy. We will discontinue the Flagyl. We will repeat pancultures and chest x-ray and we will also order urinalysis, urine culture, sputum culture, and procalcitonin. We will order a portable chest x-ray. We will follow closely with you. Rafael Jfeferson MD
[2018-01-12] MEDS: Pantoprazole 40 mg Susp UD PEG SCH (05:47)
[2018-01-12] MEDS: Cefepime 1gm in NS 100ml 1 GM/100 ML BAG IVPB SCH (05:47)
[2018-01-12 06:54] LABS: HEMOGLOBIN 11.7 g/dL (12.0-16.0); MEAN CELL VOLUME 84.2 fl (80.0-105.0); MEAN CORPUSCULAR HEMOGLOBIN 26.8 pg (25.0-35.0); MEAN CORPUSCULAR HGB CONC 31.9 g/dl (31.0-37.0); MEAN PLATELET VOLUME 9.6 fl (7.0-11.0); RBC 4.36 10^6/uL (3.5-6.1); WHITE BLOOD COUNT 6.8 10^3/ul (4.5-11.0)
[2018-01-12 07:00] LABS: ALB/GLOB RATIO 0.9 (1.1-1.8); ALBUMIN 3.5 g/dL (3.0-4.8); ALT/SGPT 22 U/L (7-56); AST/SGOT 19 U/L (14-36); BLOOD UREA NITROGEN 11 mg/dL (7-21); CALCIUM 8.9 mg/dL (8.4-10.5); GFR NON-AFRICAN AMERICAN > 60
[2018-01-12 07:40] VITALS: BP 128/76; PULSE 79; TEMP 98.7
--- NOTE | 2018-01-12 10:53 | RAD ---
Date of service: 01/11/2018 HISTORY: fever COMPARISON: 01/07/2018 and 01/09/2018 FINDINGS: LUNGS: No active pulmonary disease. PLEURA: No significant pleural effusion identified, no pneumothorax apparent. CARDIOVASCULAR: No atherosclerotic calcification present Normal. OSSEOUS STRUCTURES: No significant abnormalities. VISUALIZED UPPER ABDOMEN: Normal. OTHER FINDINGS: Stable hiatal hernia. IMPRESSION: No active disease. No significant interval change compared to the prior examination(s).
--- NOTE | 2018-01-12 18:07 | PN ---
DATE: 01/12/2018 SUBJECTIVE: The patient is in bed, in no acute distress. PHYSICAL EXAMINATION: VITAL SIGNS: Temperature is 98, T-max last night was 100.3; heart rate of 99, heart rate is now down to 79 today; her blood pressure is 120/70; respiratory rate of 20. HEENT: Unremarkable. NECK: Supple. HEART: Normal S1, S2. LUNGS: Have decreased breath sounds. ABDOMEN: Soft, nontender. LABORATORY DATA: Reveals a white count of 6.8, hemoglobin of 11, BUN of 11, creatinine of 0.3. Urinalysis is noted. Microbiology is reviewed. Abdominal culture shows Pseudomonas, Klebsiella, and staph and blood cultures are negative. Urine cultures shows E. coli and Enterococcus. Review of orders reveals the patient to be on cefepime. The patient also had a repeat chest x-ray last night which the results are pending and repeat urine cultures and blood cultures and those results are pending. ASSESSMENT AND PLAN: This is an 82-year-old female with hypertension, cerebrovascular accident and aphasia with Escherichia coli, Enterococcus, most likely a colonizer with Pseudomonas, percutaneous tube, and the percutaneous endoscopic gastrostomy tube is better with a new fever and on cefepime. We will check repeat cultures and workup and chest x-ray. If all is negative, we will discontinue the antibiotics, should consider supportive care for this patient who has end-stage decubiti and poor quality of life. Rafael Jefferson MD
--- NOTE | 2018-01-13 19:49 | DS ---
HISTORY OF PRESENT ILLNESS: I saw resting comfortably in bed. She is alert. Her eyes are open at the baseline, but she didn't recognize me I feel. 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 She is comfortable. She is off IV antibiotics as per Infectious Disease. She is on aspirin, Flexeril, heparin, and Lopressor. She was on Maxipime, Norvasc, and Protonix. PHYSICAL EXAMINATION: VITAL SIGNS: Her vital signs are 98.7 temp, 79 pulse, 128/76 blood pressure, 20 respiratory rate and 90% O2 sat on room air. HEENT: Head is atraumatic and normocephalic. HEARTS: Regular rate. LUNGS: Decreased breath sounds, but clear. ABDOMEN: Soft. EXTREMITIES: No edema. She has a feeding tube and a Fish and she has definitely improved. Clinically, she looks very well. She had enterococcus urinary tract infection with pseudomonas, percutaneous tube, Infectious Disease having stopped IV antibiotics and we may discharge her home today. LABORATORY DATA: She has a 6.8 white count, 11.7 hemoglobin, 36.7 hematocrit, 319 of platelets. She has 135 sodium, potassium 3.9, BUN 11, creatinine 0.3, GFR is greater than 60, sugar is 98, calcium is 8.9, total bili is 0.8, AST is 19, ALT is 22, alk phos 98, total protein 7.2 and the urine is now down to small bacteria, it was large when she came in. She has improved. She will be discharged home on her regular medications. I will see her on a house call and prescriptions were written, discussed with the nurse and I got the okay from the Infectious Disease to discharge her. She was here for UTI. Domenic Dunne DO
== END 2018-01-12 15:59 | disposition home or self-care (01) | DRG 394 ==
LOC: ED 15:57 → ERH 18:49 → 3RNO 22:16
PROVIDERS: ADMIT Family Medicine; ATTEND Family Medicine
DX: K94.22 Gastrostomy infection (principal); N39.0 Urinary tract infection, site not specified; B96.5 Pseudomonas (aeruginosa) (mallei) (pseudomallei) as the cause of diseases classified elsewhere; B95.2 Enterococcus as the cause of diseases classified elsewhere; B96.20 Unspecified Escherichia coli [E. coli] as the cause of diseases classified elsewhere; I10 Essential (primary) hypertension; R09.02 Hypoxemia; I69.320 Aphasia following cerebral infarction; Z74.01 Bed confinement status; Z79.82 Long term (current) use of aspirin

== ENCOUNTER 2018-06-17 14:42 | Inpatient (IN) | payer BC, MEDICARE ==
[2018-06-17 15:20] VITALS: BMI 36.6
--- NOTE | 2018-06-17 15:59 | ED PDOC ---
Arrival/HPI - General Chief Complaint: Abnormal Labs Historian: Caregiver EM Caveat: Other (baseline mental state) - History of Present Illness Narrative History of Present Illness (Text): 06/17/18 15:56 83 year old female, whose past medical history includes CVA and hypertension, presents to the emergency department sent in by Dr. Dunne for abnormal blood work. Patient here with manager ed who reports discharge around PEG tube and possible UTI. Denies any history of any known fever or vomiting. Patient has a history of CVA and is at baseline with mental status. HPI and ROS limited due to patient's baseline mental state. PMD: Dr. Dunne Past Medical History - Provider Review Nursing Documentation Reviewed: Yes - Cardiac Hx Hypertension: Yes - Neurological Other/Comment: aphasic - Integumentary Other/Comment: with healed right heel and sacral decub. - Musculoskeletal/Rheumatological Hx Falls: Yes - Gastrointestinal Other/Comment: with gtt intact. - Genitourinary/Gynecological Other/Comment: with 2way goodson cath intact. - Psychiatric Hx Substance Use: No - Surgical History Other/Comment: FEEDING TUBE INSERTION - Anesthesia Hx Anesthesia: Yes Hx Anesthesia Reactions: No Hx Malignant Hyperthermia: No Family/Social History - Physician Review Nursing Documentation Reviewed: Yes Family/Social History: No Known Family HX Smoking Status: Unknown If Ever Smoked Hx Alcohol Use: No Hx Substance Use: No Allergies/Home Meds Allergies/Adverse Reactions: Allergies No Known Allergies Allergy (Verified 01/07/18 19:39) Review of Systems - Physician Review All systems were reviewed & negative as marked: Yes - Review of Systems Systems not reviewed;Unavailable: Other (Baseline mental state) Constitutional: absent: Fevers Gastrointestinal: absent: Vomiting Physical Exam Vital Signs Reviewed: Yes Vital Signs Pulse Resp BP Pulse Ox 06/17/18 14:43 83 18 131/74 95 Blood Pressure: Normal Pulse: Regular Respiratory Rate: Normal Appearance: Positive for: Well-Appearing, Non-Toxic, Comfortable Pain Distress: None Mental Status: Positive for: other (Alert ) - Systems Exam Head: Present: Atraumatic, Normocephalic Pupils: Present: PERRL Extroacular Muscles: Present: EOMI Conjunctiva: Present: Normal Mouth: Present: Moist Mucous Membranes Neck: Present: Normal Range of Motion Respiratory/Chest: Present: Clear to Auscultation, Good Air Exchange. No: Respiratory Distress, Accessory Muscle Use Cardiovascular: Present: Murmurs (systolic), Irregular Rhythm Abdomen: Present: Feeding Tubes (with some yellowsh muus around the site, mild erythema), Other (indwelling goodson). No: Tenderness, Distention, Peritoneal Signs Back: Present: Normal Inspection Upper Extremity: Present: Other (extremities contracted). No: Cyanosis, Edema Lower Extremity: Present: Other (extremities contracted). No: Edema Neurological: Present: GCS=15, CN II-XII Intact, Speech Normal Skin: Present: Warm, Dry, Normal Color. No: Rashes Psychiatric: Present: Alert, Oriented x 3, Normal Insight, Normal Concentration Medical Decision Making ED Course and Treatment: 06/17/18 16:05 Impression: 83 year old female sent in by Dr. Dunne for evaluation of abnormal blood work. Caregiver reports discharge around PEG tube and possible UTI. Plan: -- Labs -- Blood Culture, Urine Culture -- Urinalysis -- Reassess and disposition Prior Visits: Notes and results from previous visits were reviewed. Progress Notes: EKG shows a-fib at 86 BPM. Interpreted by me. - Lab Interpretations I have reviewed the lab results: Yes - Scribe Statement The provider has reviewed the documentation as recorded by the Robinsonibe Irais Luna Provider Scribe Attestation: All medical record entries made by the Scribe were at my direction and personally dictated by me. I have reviewed the chart and agree that the record accurately reflects my personal performance of the history, physical exam, medical decision making, and the department course for this patient. I have also personally directed, reviewed, and agree with the discharge instructions and disposition. Disposition/Present on Arrival - Present on Arrival Any Indicators Present on Arrival: No History of DVT/PE: No History of Uncontrolled Diabetes: No Urinary Catheter: No History of Decub. Ulcer: Yes History Surgical Site Infection Following: None - Disposition Have Diagnosis and Disposition been Completed?: Yes Diagnosis: Positive culture findings in wound, Abscess Disposition: HOSPITALIZED Disposition Time: 18:00 Condition: STABLE
[2018-06-17 16:27] LABS: PH,URINE 7.5 (4.7-8.0); URINE BILIRUBIN NEGATIVE (NEGATIVE); URINE BLOOD SMALL (NEGATIVE); URINE GLUCOSE (UA) NEGATIVE (NEGATIVE); URINE LEUKOCYTE ESTERASE LARGE Leu/uL (NEGATIVE); URINE PROTEIN 30 mg/dL (<30 mg/dL)
[2018-06-17 16:28] LABS: URINE APPEARANCE SLIGHT-CLOUDY (CLEAR); URINE COLOR YELLOW (YELLOW)
[2018-06-17 16:33] LABS: URINE BACTERIA MANY /hpf; URINE EPITHELIAL CELLS 0 - 2 /hpf (0-5)
[2018-06-17] MEDS ORDERED: Vancomycin 1gm in NS 250ml 1 GM/250 ML BAG IVPB STA (17:51)
[2018-06-17 17:52] LABS: BASO # 0.03 K/mm3 (0.0-2.0); BASO % 0.3 % (0.0-3.0); EOS # 0.3 (0.0-0.7); EOS % 2.7 % (1.5-5.0); HEMOGLOBIN 13.4 g/dL (12.0-16.0); LYMPH # 1.4 (1.2-3.4); LYMPH % 13.9 % (22.0-35.0); MEAN CELL VOLUME 90.4 fl (80.0-105.0); MEAN CORPUSCULAR HEMOGLOBIN 29.9 pg (25.0-35.0); MEAN CORPUSCULAR HGB CONC 33.1 g/dl (31.0-37.0); MEAN PLATELET VOLUME 10.8 fl (7.0-11.0); MONO # 0.7 (0.1-0.6); MONO % 6.7 % (1.0-6.0); RBC 4.48 10^6/uL (3.5-6.1); RED CELL DISTRIBUTION WIDTH 16.3 % (11.5-14.5)
[2018-06-17 17:57] LABS: ALB/GLOB RATIO 0.9 (1.1-1.8); ALBUMIN 3.7 g/dL (3.0-4.8); ALT/SGPT 24 U/L (7-56); AST/SGOT 25 U/L (14-36); BLOOD UREA NITROGEN 21 mg/dL (7-21); CALCIUM 9.6 mg/dL (8.4-10.5); GFR NON-AFRICAN AMERICAN > 60; LIPASE 25 U/L (23-300)
[2018-06-17] MEDS: Sodium Chloride 0.9% 1,000 ML IV SCH (18:25)
--- NOTE | 2018-06-17 19:19 | CARD ---
APPROVED REPORT Date of service: 06/17/2018 EKG Measurement Heart [id number] <Conclusion> NSR, Base line artefact Low voltage QRS Abnormal ECG Please repeat.
[2018-06-17] MEDS ORDERED: Cefepime 1gm in NS 100ml 1 GM/100 ML BAG IVPB SCH (22:00)
[2018-06-17] MEDS: Meropenem IV 1 gm in NS 1 GM/50 ML BAG IVPB SCH (22:30)
[2018-06-17] MEDS: Vancomycin 1gm in NS 250ml 1 GM/250 ML BAG IVPB SCH (22:30)
--- NOTE | 2018-06-18 00:33 | HP ---
DATE OF EXAM: <06/17/2018> HISTORY OF PRESENT ILLNESS: I did do a house call on Bonny Ott who is bedridden with an history of 83-year-old female with history of CVA, hypertension, PEG tube for feedings, nonverbal. She looks at you, she has possible urinary tract infection. I did a blood test on her and a wound culture of her PEG tube site with its pus coming out and acute methicillin-resistant Staphylococcus aureus. She is nonverbal, she looks to at her baseline. She is aphasic. She has right heel and sacral decubitus, which are in different stages of healing. She used to fall all the time before she was in bed. She has a 2-way Fish, G-tube, nonverbal. FAMILY HISTORY: Unknown. SOCIAL HISTORY: No history of smoking, alcohol, or substance abuse. ALLERGIES: NO KNOWN DRUG ALLERGIES. MEDICATIONS: She is on Flexeril, aspirin, metoprolol, Nexium, and amlodipine at home. REVIEW OF SYSTEMS: Her eyes open and that is her baseline. She has pus coming from her G-tube site. She is contractive with ulcers. PHYSICAL EXAMINATION GENERAL: She is well appearing, nontoxic in bed, eyes are closed. VITAL SIGNS: Temperature 98.5, pulse 83, 15 respiratory rate, blood pressure 139/74, O2 saturation 95%. HEENT: Head is atraumatic, normocephalic. Extraocular muscles are intact. Throat is dry. NECK: Supple. HEART: Irregular rate. LUNGS: Decreased breath sounds. Poor inspiration, but no wheezes, rhonchi or rales. ABDOMEN: Feeding tube, yellowish mucus with erythema around it coming from the tube site with indwelling Fish, which looks like there is pus in her tube. EXTREMITIES: Contracted upper and lower extremities. No edema. NEUROLOGIC: GCS of 15. SKIN: Warm and dry. Poor turgor. Fish catheter feeding tube with pus coming around it. Not alert at this time. Nonverbal. Her eyes open and that is her baseline. LABORATORY DATA: EKG shows AFib at 86. She had blood tests done. Urine is many bacteria, large leukocytes, positive nitrates. Sodium 136, potassium 4.5, BUN 21, creatinine 0.3, GFR is greater than 60, sugar is 87, calcium is 9.6, magnesium 2, total bili is 0.8, AST is 25, ALT is 24, alk phos 103, total protein 7.7, lipase is 25. White count is 10, hemoglobin 13.4, hematocrit 40.5, platelets are 286. IMPRESSION: She is here for a wound infection around the G-tube site with pseudomonas and methicillin-resistant Staphylococcus aureus growing. PLAN: She will have consults with Gastroenterology for possible changing of the feeding tube, Infectious Disease for antibiotics. She is on aspirin, Nexium, Lopressor, Merrem IV, Norvasc, vancomycin, and IV fluids. We will check her labs tomorrow. Domenic Dunne DO
[2018-06-18] MEDS: Vancomycin 1gm in NS 250ml 1 GM/250 ML BAG IVPB SCH ×2 (05:23→17:46)
[2018-06-18] MEDS: Pantoprazole 40 mg Susp UD PEG SCH (05:23)
[2018-06-18] MEDS: Meropenem IV 1 gm in NS 1 GM/50 ML BAG IVPB SCH ×3 (05:23→21:11)
[2018-06-18 07:15] LABS: HEMOGLOBIN 12.9 g/dL (12.0-16.0); MEAN CELL VOLUME 91.5 fl (80.0-105.0); MEAN CORPUSCULAR HGB CONC 31.7 g/dl (31.0-37.0); MEAN PLATELET VOLUME 10.1 fl (7.0-11.0); RBC 4.45 10^6/uL (3.5-6.1); RED CELL DISTRIBUTION WIDTH 16.2 % (11.5-14.5); WHITE BLOOD COUNT 7.9 10^3/uL (4.5-11.0)
[2018-06-18 07:57] LABS: ALB/GLOB RATIO 0.9 (1.1-1.8); ALBUMIN 3.5 g/dL (3.0-4.8); ALT/SGPT 17 U/L (7-56); AST/SGOT 28 U/L (14-36); BLOOD UREA NITROGEN 14 mg/dL (7-21); GFR NON-AFRICAN AMERICAN > 60
[2018-06-18] MEDS: Sodium Chloride 0.9% 1,000 ML IV SCH (10:17)
--- NOTE | 2018-06-18 10:32 | CP.PCM.CON ---
<Anibal Shah - Last Filed: 06/18/18 10:29> History of Present Illness - History of Present Illness History of Present Illness: Anibal Shah D.O. PGY-3, Internal Medicine Resident, Infectious Disease Consultation Note 83-year-old female with a past medical history of CVA with residual deficits, hypertension, who presented to [facility] [place] being sent by PMD for abnormal blood work. Infectious disease consultation was requested for positive wound culture at the PEG tube site. Patient was seen and examined at bedside. Patient is nonverbal. Most of history obtained from chart review. Patient was having discharge from around the PEG tube site and cultures grew methicillin-resistant Staphylococcus aureus. Patient appears comfortable at this time but is having malodorous output from around the PEG tube. Review of Systems - Review of Systems Systems not reviewed;Unavailable: Dementia Past Patient History - Past Social History Smoking Status: Unknown If Ever Smoked - CARDIAC Hx Cardiac Disorders: Yes Hx Hypertension: Yes - PULMONARY Hx Respiratory Disorders: No - NEUROLOGICAL Hx Neurological Disorder: Yes HX Cerebrovascular Accident: Yes - HEENT Hx HEENT Problems: No - RENAL Hx Chronic Kidney Disease: No - ENDOCRINE/METABOLIC Hx Endocrine Disorders: No - HEMATOLOGICAL/ONCOLOGICAL Hx Blood Disorders: No - INTEGUMENTARY Hx Dermatological Problems: No - MUSCULOSKELETAL/RHEUMATOLOGICAL Hx Musculoskeletal Disorders: Yes Hx Falls: Yes Other/Comment: contracted upper and lower extremities. contracted mouth - GASTROINTESTINAL Hx Gastrointestinal Disorders: No - GENITOURINARY/GYNECOLOGICAL Hx Genitourinary Disorders: Yes Hx Incontinence: Yes - PSYCHIATRIC Hx Psychophysiologic Disorder: No - SURGICAL HISTORY Hx Surgeries: No - ANESTHESIA Hx Anesthesia: Yes Hx Anesthesia Reactions: No Hx Malignant Hyperthermia: No Meds Allergies/Adverse Reactions: Allergies Allergy/AdvReac Type Severity Reaction Status Date / Time No Known Allergies Allergy Verified 01/07/18 19:39 - Medications Medications: Current Medications Aspirin (Aspirin Chewable) 81 mg PEG DAILY [facility] Last Admin: 06/18/18 10:17 Dose: 81 mg Sodium Chloride (Sodium Chloride 0.9%) 1,000 mls @ 75 mls/hr IV .[id number] [facility] Last Admin: 06/18/18 10:17 Dose: 75 mls/hr Meropenem (Merrem Iv 1 Gm Premix) 1 gm in 50 mls @ 100 mls/hr IVPB Q8 [facility]; Prot ocol Stop: 06/25/18 22:01 Last Admin: 06/18/18 05:23 Dose: 100 mls/hr Vancomycin HCl (Vancomycin 1gm) 1 gm in 250 mls @ 167 mls/hr IVPB 0600,1800 [facility]; Protocol Last Admin: 06/18/18 05:23 Dose: 167 mls/hr Metoprolol Tartrate (Lopressor) 25 mg PO BID [facility] Last Admin: 06/18/18 10:17 Dose: 25 mg Pantoprazole Sodium (Protonix Susp) 40 mg PEG 0600 [facility] Last Admin: 06/18/18 05:23 Dose: 40 mg Physical Exam - Constitutional Appears: Non-toxic, Chronically Ill - Head Exam Head Exam: ATRAUMATIC, NORMOCEPHALIC - Eye Exam Eye Exam: absent: Scleral icterus - ENT Exam ENT Exam: Mucous Membranes Moist - Neck Exam Neck exam: Positive for: Normal Inspection - Respiratory Exam Respiratory Exam: absent: Rhonchi, Wheezes - Cardiovascular Exam Cardiovascular Exam: +S1, +S2 - GI/Abdominal Exam GI & Abdominal Exam: Normal Bowel Sounds, Soft. absent: Tenderness Additional comments: peg tube site with mild erythema and pus like, malodorous output from around edges - Neurological Exam Neurological exam: Alert - Skin Skin Exam: Dry, Warm Results - Vital Signs Recent Vital Signs: Last Vital Signs Temp 97.6 F 06/18/18 06:00 Pulse 76 06/18/18 06:00 Resp 17 06/18/18 06:00 BP 98/63 L 06/18/18 06:00 Pulse Ox 97 06/18/18 06:00 - Labs Result Diagrams: 06/18/18 06:45 06/18/18 06:45 Labs: Laboratory Results - last 24 hr 06/17/18 06/17/18 06/17/18 16:10 17:30 17:30 WBC 10.0 RBC 4.48 Hgb 13.4 Hct 40.5 MCV 90.4 D MCH 29.9 MCHC 33.1 RDW 16.3 H Plt Count 286 MPV 10.8 Neut % (Auto) 76.4 H Lymph % (Auto) 13.9 L [place] % (Auto) 6.7 H Eos % (Auto) 2.7 Baso % (Auto) 0.3 Lymph # (Auto) 1.4 [place] # (Auto) 0.7 H Eos # (Auto) 0.3 Baso # (Auto) 0.03 Absolute Neuts (auto) 7.67 H Sodium 136 Potassium 4.5 Chloride 104 Carbon Dioxide 25 Anion Gap 12 BUN 21 Creatinine 0.3 L Est GFR ( Amer) > 60 Est GFR (Non-Af Amer) > 60 Random Glucose 87 Calcium 9.6 Magnesium 2.0 Total Bilirubin 0.8 AST 25 ALT 24 Alkaline Phosphatase 103 Total Protein 7.7 Albumin 3.7 Globulin 4.0 Albumin/Globulin Ratio 0.9 L Lipase 25 Urine Color Yellow Urine Appearance Slight-cloudy Urine pH 7.5 Ur Specific [place] 1.015 Urine Protein 30 H Urine Glucose (UA) Negative Urine Ketones Negative Urine Blood Small H Urine Nitrate Positive H Urine Bilirubin Negative Urine Urobilinogen 1.0 H Ur Leukocyte Esterase Large H Urine RBC 1 - 3 H Urine WBC 10 - 15 H Ur Epithelial Cells 0 - 2 Urine Bacteria Many 06/18/18 06/18/18 06:45 06:45 WBC 7.9 D RBC 4.45 Hgb 12.9 Hct 40.7 MCV 91.5 MCH 29.0 MCHC 31.7 RDW 16.2 H Plt Count 280 MPV 10.1 Neut % (Auto) Lymph % (Auto) [place] % (Auto) Eos % (Auto) Baso % (Auto) Lymph # (Auto) [place] # (Auto) Eos # (Auto) Baso # (Auto) Absolute Neuts (auto) Sodium 140 Potassium 4.2 Chloride 108 H Carbon Dioxide 26 Anion Gap 11 BUN 14 Creatinine 0.3 L Est GFR ( Amer) > 60 Est GFR (Non-Af Amer) > 60 Random Glucose 82 Calcium 9.0 Magnesium Total Bilirubin 1.1 AST 28 ALT 17 Alkaline Phosphatase 92 Total Protein 7.3 Albumin 3.5 Globulin 3.8 Albumin/Globulin Ratio 0.9 L Lipase Urine Color Urine Appearance Urine pH Ur Specific [place] Urine Protein Urine Glucose (UA) Urine Ketones Urine Blood Urine Nitrate Urine Bilirubin Urine Urobilinogen Ur Leukocyte Esterase Urine RBC Urine WBC Ur Epithelial Cells Urine Bacteria Assessment & Plan - Assessment and Plan (Free Text) Assessment: 83-year-old female with a past medical history of CVA with residual deficits, hypertension, who presented to [facility] [place] being sent by PMD for abnormal blood work. Infectious disease consultation was requested for positive wound culture at the PEG tube site. Plan: Infected PEG tube site with methicillin-resistant Staphylococcus aureus Urinary tract infection CVA Hypertension Afebrile No leukocytosis No tachycardia or tachypnea Blood cultures ordered Urine culture ordered Wound culture will be repeated Empirically on meropenem and vancomycin Isolation/contact precautions in place GI to evaluate patient's PEG tube Feedings on hold We will follow with you Patient was seen and examined and case to be discussed with attending physician Thank you for the pleasure participating in the care of this interesting patient - Date & Time Date: 06/18/18 Time: 07:30 <Yang Melvin - Last Filed: 06/18/18 22:22> Meds - Medications Medications: Current Medications Aspirin (Aspirin Chewable) 81 mg PEG DAILY [facility] Last Admin: 06/18/18 10:17 Dose: 81 mg Sodium Chloride (Sodium Chloride 0.9%) 1,000 mls @ 75 mls/hr IV .[id number] [facility] Last Admin: 06/18/18 10:17 Dose: 75 mls/hr Meropenem (Merrem Iv 1 Gm Premix) 1 gm in 50 mls @ 100 mls/hr IVPB Q8 [facility]; Protocol Stop: 06/25/18 22:01 Last Admin: 06/18/18 21:11 Dose: 100 mls/hr Vancomycin HCl (Vancomycin 1gm) 1 gm in 250 mls @ 167 mls/hr IVPB 0600,1800 [facility]; Protocol Last Admin: 06/18/18 17:46 Dose: 167 mls/hr Metoprolol Tartrate (Lopressor) 25 mg PO BID [facility] Last Admin: 06/18/18 17:55 Dose: 25 mg Pantoprazole Sodium (Protonix Susp) 40 mg PEG 0600 [facility] Last Admin: 06/18/18 05:23 Dose: 40 mg Results - Vital Signs Recent Vital Signs: Last Vital Signs Temp 98.5 F 06/18/18 14:00 Pulse 81 06/18/18 17:55 Resp 20 06/18/18 14:00 BP 145/79 06/18/18 17:55 Pulse Ox 95 06/18/18 14:00 - Labs Result Diagrams: 06/18/18 06:45 06/18/18 06:45 Labs: Laboratory Results - last 24 hr 06/18/18 06/18/18 06:45 06:45 WBC 7.9 D RBC 4.45 Hgb 12.9 Hct 40.7 MCV 91.5 MCH 29.0 MCHC 31.7 RDW 16.2 H Plt Count 280 MPV 10.1 Sodium 140 Potassium 4.2 Chloride 108 H Carbon Dioxide 26 Anion Gap 11 BUN 14 Creatinine 0.3 L Est GFR ( Amer) > 60 Est GFR (Non-Af Amer) > 60 Random Glucose 82 Calcium 9.0 Total Bilirubin 1.1 AST 28 ALT 17 Alkaline Phosphatase 92 Total Protein 7.3 Albumin 3.5 Globulin 3.8 Albumin/Globulin Ratio 0.9 L Assessment & Plan - Assessment and Plan (Free Text) Plan: Infectious Diseases Attending Physician Attestation Patient seen and examined at bedside, discussed with medical anthropologist. I have reviewed the HPI, ROS, Family, Medical, Social and personal histories, physical examination findings. I have also reviewed the pertinent labs and diagnostic imaging. I have fully participiated in the care of this patient. I agree with the above findings, assessment, plan. In addition, we have started Vancomycin and Merrem for this patient with probable infected PEG tube site. Follow up wound and blood cx, follow up plans of GI. Will monitor clinically.
--- NOTE | 2018-06-18 12:23 | CP.PCM.CON ---
<Marcelo Calderon - Last Filed: 06/18/18 12:25> History of Present Illness - History of Present Illness History of Present Illness: GI Fellow PGY4, consult note. Bonny Ott is an 83F with history of CVA, non-verbal, debilitated who came to the hospital for evaluation of PEG tube. The PEG tube has have been having discharge since December where MRSA, pseudomonas, Klebsiella was cultured. Today, she is having purulent discharge from G-tube site. The tube is a balloon tri-port. It appears to be in place and functional. It flushes well, and I can aspirate gastric contents easily. There is clearly some ulceration around the tube site, but there does not to be any area of induration, or mass. The external bumper was rubbing against the skin where there was a natural skin fold. PMHx - UTI, CVA, dysphagia, infected G-tube site, sacral and decubitus ulcers PSHx - unclear when tube was placed. SocHx - lives at home where family takes care of her. Unable to obtain 12pt ROS due to chronic mental status. Past Patient History - Past Social History Smoking Status: Unknown If Ever Smoked - CARDIAC Hx Cardiac Disorders: Yes Hx Hypertension: Yes - PULMONARY Hx Respiratory Disorders: No - NEUROLOGICAL Hx Neurological Disorder: Yes HX Cerebrovascular Accident: Yes - HEENT Hx HEENT Problems: No - RENAL Hx Chronic Kidney Disease: No - ENDOCRINE/METABOLIC Hx Endocrine Disorders: No - HEMATOLOGICAL/ONCOLOGICAL Hx Blood Disorders: No - INTEGUMENTARY Hx Dermatological Problems: No - MUSCULOSKELETAL/RHEUMATOLOGICAL Hx Musculoskeletal Disorders: Yes Hx Falls: Yes Other/Comment: contracted upper and lower extremities. contracted mouth - GASTROINTESTINAL Hx Gastrointestinal Disorders: No - GENITOURINARY/GYNECOLOGICAL Hx Genitourinary Disorders: Yes Hx Incontinence: Yes - PSYCHIATRIC Hx Psychophysiologic Disorder: No - SURGICAL HISTORY Hx Surgeries: No - ANESTHESIA Hx Anesthesia: Yes Hx Anesthesia Reactions: No Hx Malignant Hyperthermia: No Meds Allergies/Adverse Reactions: Allergies Allergy/AdvReac Type Severity Reaction Status Date / Time No Known Allergies Allergy Verified 01/07/18 19:39 - Medications Medications: Current Medications Aspirin (Aspirin Chewable) 81 mg PEG DAILY [facility] Last Admin: 06/18/18 10:17 Dose: 81 mg Sodium Chloride (Sodium Chloride 0.9%) 1,000 mls @ 75 mls/hr IV .[id number] [facility] Last Admin: 06/18/18 10:17 Dose: 75 mls/hr Meropenem (Merrem Iv 1 Gm Premix) 1 gm in 50 mls @ 100 mls/hr IVPB Q8 [facility]; Protocol Stop: 06/25/18 22:01 Last Admin: 06/18/18 05:23 Dose: 100 mls/hr Vancomycin HCl (Vancomycin 1gm) 1 gm in 250 mls @ 167 mls/hr IVPB 0600,1800 [facility]; Protocol Last Admin: 06/18/18 05:23 Dose: 167 mls/hr Metoprolol Tartrate (Lopressor) 25 mg PO BID [facility] Last Admin: 06/18/18 10:17 Dose: 25 mg Pantoprazole Sodium (Protonix Susp) 40 mg PEG 0600 [facility] Last Admin: 06/18/18 05:23 Dose: 40 mg Physical Exam - Constitutional Appears: Non-toxic, No Acute Distress, Confused - Head Exam Head Exam: ATRAUMATIC, NORMAL INSPECTION - Eye Exam Eye Exam: EOMI, Normal appearance - Respiratory Exam Respiratory Exam: Clear to Auscultation Bilateral, NORMAL BREATHING PATTERN - Cardiovascular Exam Cardiovascular Exam: REGULAR RHYTHM, +S1, +S2 - GI/Abdominal Exam GI & Abdominal Exam: Normal Bowel Sounds, Soft. absent: Organomegaly, Tenderness Additional comments: purulent discharge from G-tube site. The tube is a balloon tri-port. It appears to be in place and functional. It flushes well, and I can aspirate gastric contents easily. There is clearly some ulceration around the peritube site, but there does not to be any area of induration, or mass. The external bumper was rubbing against the skin where there was a natural skin fold. - Extremities Exam Extremities exam: Positive for: normal inspection. Negative for: pedal edema - Neurological Exam Neurological exam: Altered - Psychiatric Exam Psychiatric exam: Flat Affect - Skin Skin Exam: Normal Color, Warm Results - Vital Signs Recent Vital Signs: Last Vital Signs Temp 97.6 F 06/18/18 06:00 Pulse 76 06/18/18 06:00 Resp 17 06/18/18 06:00 BP 98/63 L 06/18/18 06:00 Pulse Ox 97 06/18/18 06:00 - Labs Result Diagrams: 06/18/18 06:45 06/18/18 06:45 Labs: Laboratory Results - last 24 hr 06/17/18 06/17/18 06/17/18 16:10 17:30 17:30 WBC 10.0 RBC 4.48 Hgb 13.4 Hct 40.5 MCV 90.4 D MCH 29.9 MCHC 33.1 RDW 16.3 H Plt Count 286 MPV 10.8 Neut % (Auto) 76.4 H Lymph % (Auto) 13.9 L [place] % (Auto) 6.7 H Eos % (Auto) 2.7 Baso % (Auto) 0.3 Lymph # (Auto) 1.4 [place] # (Auto) 0.7 H Eos # (Auto) 0.3 Baso # (Auto) 0.03 Absolute Neuts (auto) 7.67 H Sodium 136 Potassium 4.5 Chloride 104 Carbon Dioxide 25 Anion Gap 12 BUN 21 Creatinine 0.3 L Est GFR ( Amer) > 60 Est GFR (Non-Af Amer) > 60 Random Glucose 87 Calcium 9.6 Magnesium 2.0 Total Bilirubin 0.8 AST 25 ALT 24 Alkaline Phosphatase 103 Total Protein 7.7 Albumin 3.7 Globulin 4.0 Albumin/Globulin Ratio 0.9 L Lipase 25 Urine Color Yellow Urine Appearance Slight-cloudy Urine pH 7.5 Ur Specific [place] 1.015 Urine Protein 30 H Urine Glucose (UA) Negative Urine Ketones Negative Urine Blood Small H Urine Nitrate Positive H Urine Bilirubin Negative Urine Urobilinogen 1.0 H Ur Leukocyte Esterase Large H Urine RBC 1 - 3 H Urine WBC 10 - 15 H Ur Epithelial Cells 0 - 2 Urine Bacteria Many 06/18/18 06/18/18 06:45 06:45 WBC 7.9 D RBC 4.45 Hgb 12.9 Hct 40.7 MCV 91.5 MCH 29.0 MCHC 31.7 RDW 16.2 H Plt Count 280 MPV 10.1 Neut % (Auto) Lymph % (Auto) [place] % (Auto) Eos % (Auto) Baso % (Auto) Lymph # (Auto) [place] # (Auto) Eos # (Auto) Baso # (Auto) Absolute Neuts (auto) Sodium 140 Potassium 4.2 Chloride 108 H Carbon Dioxide 26 Anion Gap 11 BUN 14 Creatinine 0.3 L Est GFR ( Amer) > 60 Est GFR (Non-Af Amer) > 60 Random Glucose 82 Calcium 9.0 Magnesium Total Bilirubin 1.1 AST 28 ALT 17 Alkaline Phosphatase 92 Total Protein 7.3 Albumin 3.5 Globulin 3.8 Albumin/Globulin Ratio 0.9 L Lipase Urine Color Urine Appearance Urine pH Ur Specific [place] Urine Protein Urine Glucose (UA) Urine Ketones Urine Blood Urine Nitrate Urine Bilirubin Urine Urobilinogen Ur Leukocyte Esterase Urine RBC Urine WBC Ur Epithelial Cells Urine Bacteria Assessment & Plan - Assessment and Plan (Free Text) Assessment: #Peristomal ulceration and infection #CVA #Sacral ulcers PLAN: -No obvious signs of abscess, acute abdomen. Will consider CT abdomen/pelvis if no improvement. -History of MRSA, pseudomonas, klebsiella wound infection in December 2017. -I moved the external bumper back to 5cm to relieve skin tension likely causing ulcerations -Continue broad spectrum abx per ID -Wound care consult -follow up wound culture -Hold tube feeds x 48hrs -OK to give meds through tube Case discussed with Dr. Nascimento, see attestation - Date & Time Date: 06/18/18 Time: 12:33 <Anthony Nascimento - Last Filed: 06/18/18 14:16> Meds - Medications Medications: Current Medications Aspirin (Aspirin Chewable) 81 mg PEG DAILY [facility] Last Admin: 06/18/18 10:17 Dose: 81 mg Sodium Chloride (Sodium Chloride 0.9%) 1,000 mls @ 75 mls/hr IV .[id number] [facility] Last Admin: 06/18/18 10:17 Dose: 75 mls/hr Meropenem (Merrem Iv 1 Gm Premix) 1 gm in 50 mls @ 100 mls/hr IVPB Q8 [facility]; Protocol Stop: 06/25/18 22:01 Last Admin: 06/18/18 13:46 Dose: 100 mls/hr Vancomycin HCl (Vancomycin 1gm) 1 gm in 250 mls @ 167 mls/hr IVPB 0600,1800 [facility]; Protocol Last Admin: 06/18/18 05:23 Dose: 167 mls/hr Metoprolol Tartrate (Lopressor) 25 mg PO BID [facility] Last Admin: 06/18/18 10:17 Dose: 25 mg Pantoprazole Sodium (Protonix Susp) 40 mg PEG 0600 [facility] Last Admin: 06/18/18 05:23 Dose: 40 mg Results - Vital Signs Recent Vital Signs: Last Vital Signs Temp 97.6 F 06/18/18 06:00 Pulse 76 06/18/18 06:00 Resp 17 06/18/18 06:00 BP 98/63 L 06/18/18 06:00 Pulse Ox 97 06/18/18 06:00 - Labs Result Diagrams: 06/18/18 06:45 06/18/18 06:45 Labs: Laboratory Results - last 24 hr 06/17/18 06/17/18 06/17/18 16:10 17:30 17:30 WBC 10.0 RBC 4.48 Hgb 13.4 Hct 40.5 MCV 90.4 D MCH 29.9 MCHC 33.1 RDW 16.3 H Plt Count 286 MPV 10.8 Neut % (Auto) 76.4 H Lymph % (Auto) 13.9 L [place] % (Auto) 6.7 H Eos % (Auto) 2.7 Baso % (Auto) 0.3 Lymph # (Auto) 1.4 [place] # (Auto) 0.7 H Eos # (Auto) 0.3 Baso # (Auto) 0.03 Absolute Neuts (auto) 7.67 H Sodium 136 Potassium 4.5 Chloride 104 Carbon Dioxide 25 Anion Gap 12 BUN 21 Creatinine 0.3 L Est GFR ( Amer) > 60 Est GFR (Non-Af Amer) > 60 Random Glucose 87 Calcium 9.6 Magnesium 2.0 Total Bilirubin 0.8 AST 25 ALT 24 Alkaline Phosphatase 103 Total Protein 7.7 Albumin 3.7 Globulin 4.0 Albumin/Globulin Ratio 0.9 L Lipase 25 Urine Color Yellow Urine Appearance Slight-cloudy Urine pH 7.5 Ur Specific [place] 1.015 Urine Protein 30 H Urine Glucose (UA) Negative Urine Ketones Negative Urine Blood Small H Urine Nitrate Positive H Urine Bilirubin Negative Urine Urobilinogen 1.0 H Ur Leukocyte Esterase Large H Urine RBC 1 - 3 H Urine WBC 10 - 15 H Ur Epithelial Cells 0 - 2 Urine Bacteria Many 06/18/18 06/18/18 06:45 06:45 WBC 7.9 D RBC 4.45 Hgb 12.9 Hct 40.7 MCV 91.5 MCH 29.0 MCHC 31.7 RDW 16.2 H Plt Count 280 MPV 10.1 Neut % (Auto) Lymph % (Auto) [place] % (Auto) Eos % (Auto) Baso % (Auto) Lymph # (Auto) [place] # (Auto) Eos # (Auto) Baso # (Auto) Absolute Neuts (auto) Sodium 140 Potassium 4.2 Chloride 108 H Carbon Dioxide 26 Anion Gap 11 BUN 14 Creatinine 0.3 L Est GFR ( Amer) > 60 Est GFR (Non-Af Amer) > 60 Random Glucose 82 Calcium 9.0 Magnesium Total Bilirubin 1.1 AST 28 ALT 17 Alkaline Phosphatase 92 Total Protein 7.3 Albumin 3.5 Globulin 3.8 Albumin/Globulin Ratio 0.9 L Lipase Urine Color Urine Appearance Urine pH Ur Specific [place] Urine Protein Urine Glucose (UA) Urine Ketones Urine Blood Urine Nitrate Urine Bilirubin Urine Urobilinogen Ur Leukocyte Esterase Urine RBC Urine WBC Ur Epithelial Cells Urine Bacteria Attending/Attestation - Attestation I have fully participated in the care of the patient.: Yes I have reviewed all pertinent clinical information: Yes Notes (Text): 06/18/18 14:14 CVA, non-verbal at baseline PEG site discharge, infection - May use PEG tube for medication but would hold feeding for time being - Continue with antibiotic therapy as per ID - Follow up repeat wound culture - Will consider CT imaging to rule out associated abscess if symptoms fail to improve - Will continue to monitor patient clinical course
--- NOTE | 2018-06-18 14:18 | PN ---
DATE: 06/18/2018 SUBJECTIVE: I saw her this morning. Actually, today she looked good. She actually opened her eyes and looked at me, which is good for her, it is kind of her baseline; did not smile yet, that is the next step for her. MEDICATIONS: She is on aspirin, metoprolol, Merrem IV, amlodipine which I stopped because her blood pressure was low, Protonix, IV fluids, and vancomycin IV. PHYSICAL EXAMINATION: VITAL SIGNS: She has 97.6 temperature, 76 pulse, 98/63 blood pressure, I have twice stopped the Norvasc, 17 respiratory rate, 97% O2 sat on room air. HEAD: Atraumatic, normocephalic. She opened her eyes, that is her baseline. She did not smile, I am waiting for that to happen maybe another day. HEART: Regular rate. LUNGS: Decreased breath sounds. ABDOMEN: Soft with a feeding tube that looks quite and discharge around it which showed Pseudomonas and MRSA. EXTREMITIES: Contracted. She does have ulcers in the sacrum and the heels. I will get Wound Care to look at her. LABORATORY DATA: White count is down to 7.9, hemoglobin 12.9, hematocrit 40.7, platelets of 280. She has sodium 140, potassium 4.2, BUN 14, creatinine 0.3, GFR is greater than 60, sugar is 82, calcium is 5. Total bili is 1.1, AST is 28, ALT is 17, alk phos 92, total protein 7.3, lipase is 25. Urine was very dirty with many bacteria and large leukocytes. ASSESSMENT AND PLAN: She has consults for GI, hopefully they will change the tube; Infectious Disease for intravenous antibiotics. I discontinued her Norvasc due to the low blood pressure. We will continue with aggressive treatment and care, on intravenous antibiotics. I do think she needs a feeding tube change. After that, we will start her percutaneous endoscopic gastrostomy tube feedings. Hopefully, they will change the tube in the next 24 hours. Domenic Dunne DO [facility]ENTERBlas
[2018-06-19] MEDS: Sodium Chloride 0.9% 1,000 ML IV SCH ×3 (03:41→22:40)
[2018-06-19] MEDS: Meropenem IV 1 gm in NS 1 GM/50 ML BAG IVPB SCH ×3 (05:54→21:28)
[2018-06-19] MEDS: Pantoprazole 40 mg Susp UD PEG SCH (05:55)
[2018-06-19] MEDS: Vancomycin 1gm in NS 250ml 1 GM/250 ML BAG IVPB SCH ×2 (05:55→17:15)
[2018-06-19 07:53] LABS: ALB/GLOB RATIO 0.9 (1.1-1.8); ALBUMIN 3.3 g/dL (3.0-4.8); ALT/SGPT 19 U/L (7-56); AST/SGOT 20 U/L (14-36); BLOOD UREA NITROGEN 9 mg/dL (7-21); CALCIUM 8.8 mg/dL (8.4-10.5); GFR NON-AFRICAN AMERICAN > 60
--- NOTE | 2018-06-19 10:37 | CP.PCM.PN ---
<Marcelo Calderon - Last Filed: 06/19/18 17:36> Subjective - Date & Time of Evaluation Date of Evaluation: 06/19/18 Time of Evaluation: 10:34 - Subjective Subjective: Patient is tolerating medications through G tube. No acute overnight events. She had BM last night. Wound care has been consulted and placed special dressing. Objective - Vital Signs/Intake and Output Vital Signs (last 24 hours): Temp Pulse Resp BP Pulse Ox 98 F 95 H 18 145/72 96 06/19/18 10:07 06/19/18 10:07 06/19/18 10:07 06/19/18 10:07 06/19/18 10:07 Intake and Output: 06/19/18 06/19/18 06:59 18:59 Intake Total 1000 Output Total 1100 500 Balance -1100 500 - Medications Medications: Current Medications Aspirin (Aspirin Chewable) 81 mg PEG DAILY [facility] Last Admin: 06/18/18 10:17 Dose: 81 mg Sodium Chloride (Sodium Chloride 0.9%) 1,000 mls @ 75 mls/hr IV .[id number] [facility] Last Admin: 06/19/18 03:41 Dose: 75 mls/hr Meropenem (Merrem Iv 1 Gm Premix) 1 gm in 50 mls @ 100 mls/hr IVPB Q8 [facility]; Protocol Stop: 06/25/18 22:01 Last Admin: 06/19/18 05:54 Dose: 100 mls/hr Vancomycin HCl (Vancomycin 1gm) 1 gm in 250 mls @ 167 mls/hr IVPB 0600,1800 [facility]; Protocol Last Admin: 06/19/18 05:55 Dose: 167 mls/hr Metoprolol Tartrate (Lopressor) 25 mg PO BID [facility] Last Admin: 06/18/18 17:55 Dose: 25 mg Pantoprazole Sodium (Protonix Susp) 40 mg PEG 0600 [facility] Last Admin: 06/19/18 05:55 Dose: 40 mg - Labs Labs: 06/18/18 06:45 06/19/18 07:00 - Constitutional Appears: Non-toxic, No Acute Distress - Eye Exam Eye Exam: EOMI, Normal appearance - Respiratory Exam Respiratory Exam: Clear to Ausculation Bilateral, NORMAL BREATHING PATTERN - Cardiovascular Exam Cardiovascular Exam: REGULAR RHYTHM, +S1, +S2 - GI/Abdominal Exam GI & Abdominal Exam: Soft, Normal Bowel Sounds. absent: Tenderness Additional comments: G-tube in place. No purulent discharge at this time. - Neurological Exam Neurological Exam: Alert, Awake. absent: Oriented x3 - Psychiatric Exam Psychiatric exam: Flat Affect - Skin Skin Exam: Normal Color, Warm Assessment and Plan - Assessment and Plan (Free Text) Assessment: #Peristomal ulceration and infection #CVA #Sacral ulcers PLAN: -No obvious signs of abscess, acute abdomen. Will consider CT abdomen/pelvis if no improvement. -History of MRSA, pseudomonas, klebsiella wound infection in December 2017. -I moved the external bumper back to 5cm to relieve skin tension likely causing ulcerations. External bumper is very abrasive with sharp edges. -Continue broad spectrum abx per ID -Wound care consulted, applying special dressing. I discussed with nursing staff to keep external bumper away from skin. -follow up wound culture -Start tube feeds now -OK to give meds through tube <Anthony Nascimento - Last Filed: 06/19/18 17:40> Objective - Vital Signs/Intake and Output Vital Signs (last 24 hours): Temp Pulse Resp BP Pulse Ox 81 F L 99 H 20 154/87 H 98 06/19/18 15:07 06/19/18 15:07 06/19/18 15:07 06/19/18 15:07 06/19/18 15:07 Intake and Output: 06/19/18 06/19/18 06:59 18:59 Intake Total 1000 Output Total 1100 500 Balance -1100 500 - Medications Medications: Current Medications Aspirin (Aspirin Chewable) 81 mg PEG DAILY [facility] Last Admin: 06/19/18 12:23 Dose: 81 mg Sodium Chloride (Sodium Chloride 0.9%) 1,000 mls @ 75 mls/hr IV .[id number] [facility] Last Admin: 06/19/18 12:24 Dose: 75 mls/hr Meropenem (Merrem Iv 1 Gm Premix) 1 gm in 50 mls @ 100 mls/hr IVPB Q8 [facility]; Protocol Stop: 06/25/18 22:01 Last Admin: 06/19/18 14:39 Dose: 100 mls/hr Vancomycin HCl (Vancomycin 1gm) 1 gm in 250 mls @ 167 mls/hr IVPB 0600,1800 [facility]; Protocol Last Admin: 06/19/18 17:15 Dose: 167 mls/hr Metoprolol Tartrate (Lopressor) 25 mg PO BID [facility] Last Admin: 06/19/18 17:16 Dose: 25 mg Pantoprazole Sodium (Protonix Susp) 40 mg PEG 0600 [facility] Last Admin: 06/19/18 05:55 Dose: 40 mg - Labs Labs: 06/18/18 06:45 06/19/18 07:00 Attending/Attestation - Attestation I have fully participated in the care of the patient.: Yes I have reviewed all pertinent clinical information, including history, physical exam and plan: Yes Notes (Text): 06/19/18 17:39 CVA, non-verbal at baseline PEG, melisa-stomal infection - Continue with antibiotic therapy as per ID - Follow up wound culture - No further discharge noted from wound site, can resume trial of tube feeding and monitor clinically - Tube bumper should have dressing beneath it at all times, will continue to monitor patient course
--- NOTE | 2018-06-19 10:53 | PN ---
DATE: 06/19/2018 SUBJECTIVE: I saw her this morning. She looks at me and she smiles, that is her baseline. She is nonverbal. She has an old CVA. She comes in with a positive wound culture of Pseudomonas and MRSA around the PEG tube site, which I thought needed to be changed, but GI at this time does not feel that the tubing needs to be changed. She is on IV antibiotics. There is also a urine gram-negative olive and gram-positive cocci in the urine. She is alert. She is almost getting back to her baseline, which is great. PHYSICAL EXAMINATION GENERAL: She is looking at me. She smiles, that is her baseline. She follows you with her eyes and she understands everything. VITAL SIGNS: She has a 98 temperature, 95 pulse, 143/72 blood pressure, 18 respiratory rate, 96% O2 sat on room air. HEENT: Head is atraumatic, normocephalic. CARDIOPULMONARY: Heart is regular rate. LUNGS: Decreased breath sounds but clear. ABDOMEN: Soft, nontender. Positive bowel sounds. Still some oozing around the PEG tube site. EXTREMITIES: Look contracted but no edema. SKIN: She is bedridden. She has some sores. LABORATORY DATA: She has got a white count of 7.9, hemoglobin 12.9, hematocrit 40.7, 280 platelets. A 138 sodium, potassium is 3.8, BUN 9, creatinine 0.3, GFR is greater than 60, sugar 69, calcium is 8.8. Total bili is 1.5, AST is 20, ALT is 19, alk phos 89, total protein 7. Urine has many bacteria, large leukocytes, positive nitrites. There is a positive wound culture from the outpatient for Pseudomonas and MRSA. ASSESSMENT AND PLAN: She is on isolation. She will continue with IV antibiotics, which is vancomycin, IV fluids, Protonix and Merrem IV, Lopressor and aspirin. As per Infectious Disease and Gastroenterology, deal with aggressive treatment care. She has got an infection. Domenic Dunne DO
--- NOTE | 2018-06-19 15:20 | CP.PCM.PN ---
<Anibal Shah - Last Filed: 06/19/18 15:17> Subjective - Date & Time of Evaluation Date of Evaluation: 06/19/18 Time of Evaluation: 07:55 - Subjective Subjective: Anibal Shah D.O. PGY-3, Internal Medicine Resident, Infectious Disease Progress Note 83-year-old female with a past medical history of CVA with residual deficits, hypertension, who [place] [facility] sent by PMD for abnormal blood work. Infectious disease consultation was requested for positive wound culture at the PEG tube site. Patient was seen and examined at bedside. Nonverbal but appears comfortable. Objective - Vital Signs/Intake and Output Vital Signs (last 24 hours): Temp Pulse Resp BP Pulse Ox 81 F L 99 H 20 154/87 H 98 06/19/18 15:07 06/19/18 15:07 06/19/18 15:07 06/19/18 15:07 06/19/18 15:07 Intake and Output: 06/19/18 06/19/18 06:59 18:59 Intake Total 1000 Output Total 1100 500 Balance -1100 500 - Medications Medications: Current Medications Aspirin (Aspirin Chewable) 81 mg PEG DAILY [facility] Last Admin: 06/19/18 12:23 Dose: 81 mg Sodium Chloride (Sodium Chloride 0.9%) 1,000 mls @ 75 mls/hr IV .[id number] [facility] Last Admin: 06/19/18 12:24 Dose: 75 mls/hr Meropenem (Merrem Iv 1 Gm Premix) 1 gm in 50 mls @ 100 mls/hr IVPB Q8 [facility]; Protocol Stop: 06/25/18 22:01 Last Admin: 06/19/18 14:39 Dose: 100 mls/hr Vancomycin HCl (Vancomycin 1gm) 1 gm in 250 mls @ 167 mls/hr IVPB 0600,1800 [facility]; Protocol Last Admin: 06/19/18 05:55 Dose: 167 mls/hr Metoprolol Tartrate (Lopressor) 25 mg PO BID [facility] Last Admin: 06/19/18 12:23 Dose: 25 mg Pantoprazole Sodium (Protonix Susp) 40 mg PEG 0600 [facility] Last Admin: 06/19/18 05:55 Dose: 40 mg - Labs Labs: 06/18/18 06:45 06/19/18 07:00 - Constitutional Appears: Non-toxic, Chronically Ill - Head Exam Head Exam: ATRAUMATIC, NORMOCEPHALIC - Eye Exam Eye Exam: absent: Scleral icterus - ENT Exam ENT Exam: Mucous Membranes Moist - Neck Exam Neck exam: Positive for: Normal Inspection - Respiratory Exam Respiratory Exam: absent: Rhonchi, Wheezes - Cardiovascular Exam Cardiovascular Exam: +S1, +S2 - GI/Abdominal Exam GI & Abdominal Exam: peg tube site appears better with little to no drainage - Neurological Exam Neurological exam: Alert, nonverbal - Skin Skin Exam: Dry, Warm Assessment and Plan - Assessment and Plan (Free Text) Assessment: 83-year-old female with a past medical history of CVA with residual deficits, hy pertension, who presented [place] [facility] [place] being sent by PMD for abnormal blood work. Infectious disease consultation was requested for positive wound culture at the PEG tube site. Plan: Infected PEG tube site with methicillin-resistant Staphylococcus aureus Urinary tract infection CVA Hypertension Afebrile No leukocytosis Blood cultures negative 2/2 day 1 Urine culture here shows E coli and Enteroccocus faecalis, MRSA at facility Wound culture showing GNR and GPC Continue meropenem and vancomycin day [address] Mcfarlane's note and recs appreciated Feedings on hold We will follow with you Patient was seen and examined and case to be discussed with attending physician Thank you for the pleasure participating in the care of this interesting patient <Yang Melvin - Last Filed: 06/19/18 22:47> Objective - Vital Signs/Intake and Output Vital Signs (last 24 hours): Temp Pulse Resp BP Pulse Ox 97.8 F 92 H 20 168/92 H 92 L 06/19/18 22:29 06/19/18 22:29 06/19/18 22:29 06/19/18 22:29 06/19/18 22:29 Intake and Output: 06/19/18 06/20/18 18:59 06:59 Intake Total 1000 0 Output Total 500 1200 Balance 500 -1200 - Medications Medications: Current Medications Aspirin (Aspirin Chewable) 81 mg PEG DAILY [facility] Last Admin: 06/19/18 12:23 Dose: 81 mg Sodium Chloride (Sodium Chloride 0.9%) 1,000 mls @ 75 mls/hr IV .[id number] [facility] Last Admin: 06/19/18 22:40 Dose: 75 mls/hr Meropenem (Merrem Iv 1 Gm Premix) 1 gm in 50 mls @ 100 mls/hr IVPB Q8 [facility]; Protocol Stop: 06/25/18 22:01 Last Admin: 06/19/18 21:28 Dose: 100 mls/hr Vancomycin HCl (Vancomycin 1gm) 1 gm in 250 mls @ 167 mls/hr IVPB 0600,1800 [facility]; Protocol Last Admin: 06/19/18 17:15 Dose: 167 mls/hr Metoprolol Tartrate (Lopressor) 25 mg PO BID [facility] Last Admin: 06/19/18 17:16 Dose: 25 mg Pantoprazole Sodium (Protonix Susp) 40 mg PEG 0600 [facility] Last Admin: 06/19/18 05:55 Dose: 40 mg - Labs Labs: 06/18/18 06:45 06/19/18 07:00 Assessment and Plan - Assessment and Plan (Free Text) Plan: Infectious Diseases Attending Physician Attestation Patient seen and examined at bedside, discussed with medical office technician. I have reviewed the HPI, ROS, physical examination findings. I have also reviewed the pertinent labs and diagnostic imaging. I have fully participiated in the care of this patient. I agree with the above findings, assessment, plan. In addition, continue Merrem and Vancomycin for patient with probable PEG site infection. Follow up final culture results.
[2018-06-20] MEDS: Pantoprazole 40 mg Susp UD PEG SCH (05:22)
[2018-06-20] MEDS: Meropenem IV 1 gm in NS 1 GM/50 ML BAG IVPB SCH ×3 (05:22→22:01)
[2018-06-20] MEDS: Vancomycin 1gm in NS 250ml 1 GM/250 ML BAG IVPB SCH ×2 (05:23→17:15)
--- NOTE | 2018-06-20 07:10 | CP.PCM.PN ---
<JuliomiriamjonathonMarcelo - Last Filed: 06/20/18 09:05> Subjective - Date & Time of Evaluation Date of Evaluation: 06/20/18 Time of Evaluation: 07:09 - Subjective Subjective: Tolerating tube feeds. Special dressing in place. No acute events overnight. No acute distress. Objective - Vital Signs/Intake and Output Vital Signs (last 24 hours): Temp Pulse Resp BP Pulse Ox 97.8 F 92 H 20 168/92 H 92 L 06/19/18 22:29 06/19/18 22:29 06/19/18 22:29 06/19/18 22:29 06/19/18 22:29 Intake and Output: 06/20/18 06/20/18 06:59 18:59 Intake Total 0 Output Total 1700 Balance -1700 - Medications Medications: Current Medications Aspirin (Aspirin Chewable) 81 mg PEG DAILY [facility] Last Admin: 06/19/18 12:23 Dose: 81 mg Sodium Chloride (Sodium Chloride 0.9%) 1,000 mls @ 75 mls/hr IV .[id number] [facility] Last Admin: 06/19/18 22:40 Dose: 75 mls/hr Meropenem (Merrem Iv 1 Gm Premix) 1 gm in 50 mls @ 100 mls/hr IVPB Q8 [facility]; Protocol Stop: 06/25/18 22:01 Last Admin: 06/20/18 05:22 Dose: 100 mls/hr Vancomycin HCl (Vancomycin 1gm) 1 gm in 250 mls @ 167 mls/hr IVPB 0600,1800 [facility]; Protocol Last Admin: 06/20/18 05:23 Dose: 167 mls/hr Metoprolol Tartrate (Lopressor) 25 mg PO BID [facility] Last Admin: 06/19/18 17:16 Dose: 25 mg Pantoprazole Sodium (Protonix Susp) 40 mg PEG 0600 [facility] Last Admin: 06/20/18 05:22 Dose: 40 mg - Labs Labs: 06/18/18 06:45 06/19/18 07:00 - Constitutional Appears: Non-toxic, No Acute Distress, Confused - Head Exam Head Exam: ATRAUMATIC, NORMAL INSPECTION - Eye Exam Eye Exam: EOMI, Normal appearance - Respiratory Exam Respiratory Exam: Clear to Ausculation Bilateral, NORMAL BREATHING PATTERN - Cardiovascular Exam Cardiovascular Exam: REGULAR RHYTHM, +S1, +S2 - GI/Abdominal Exam GI & Abdominal Exam: Soft, Normal Bowel Sounds. absent: Tenderness Additional comments: Appropriate wound dressing at tube site. Mild drainage. - Extremities Exam Extremities Exam: Normal Inspection. absent: Pedal Edema - Neurological Exam Neurological Exam: Alert, Altered, Awake - Psychiatric Exam Psychiatric exam: Flat Affect - Skin Skin Exam: Normal Color, Warm Assessment and Plan - Assessment and Plan (Free Text) Assessment: #G-tube, balloon, Peristomal ulceration and infection #CVA #Sacral ulcers #Thrush PLAN: -No obvious signs of abscess, acute abdomen. Will consider CT abdomen/pelvis if no improvement. -History of MRSA, pseudomonas, klebsiella wound infection in December 2017. -I moved the external bumper back to 5cm to relieve skin tension likely causing ulcerations. External bumper is very abrasive with sharp edges. -Continue broad spectrum abx per ID -Wound care consulted, applying special dressing. I discussed with nursing staff to keep external bumper away from skin. -Wound culture growing GNR, GPC -Tolerating tube feeds -OK to give meds through tube -Agree with thrush treatment -We will sign-off at this time. Please reconsult as needed. <Anthony Nascimento - Last Filed: 06/20/18 11:15> Objective - Vital Signs/Intake and Output Vital Signs (last 24 hours): Temp Pulse Resp BP Pulse Ox 98.9 F 84 19 143/74 100 06/20/18 06:00 06/20/18 09:53 06/20/18 06:00 06/20/18 09:53 06/20/18 06:00 Intake and Output: 06/20/18 06/20/18 06:59 18:59 Intake Total 0 Output Total 1700 Balance -1700 - Medications Medications: Current Medications Aspirin (Aspirin Chewable) 81 mg PEG DAILY [facility] Last Admin: 06/20/18 09:53 Dose: 81 mg Clotrimazole (Mycelex Mindy) 10 mg MT 5XD [facility] Last Admin: 06/20/18 09:53 Dose: 10 mg Sodium Chloride (Sodium Chloride 0.9%) 1,000 mls @ 75 mls/hr IV .[id number] [facility] Last Admin: 06/19/18 22:40 Dose: 75 mls/hr Meropenem (Merrem Iv 1 Gm Premix) 1 gm in 50 mls @ 100 mls/hr IVPB Q8 [facility]; Protocol Stop: 06/25/18 22:01 Last Admin: 06/20/18 05:22 Dose: 100 mls/hr Vancomycin HCl (Vancomycin 1gm) 1 gm in 250 mls @ 167 mls/hr IVPB 0600,1800 [facility]; Protocol Last Admin: 06/20/18 05:23 Dose: 167 mls/hr Metoprolol Tartrate (Lopressor) 25 mg PO BID [facility] Last Admin: 06/20/18 09:53 Dose: 25 mg Pantoprazole Sodium (Protonix Susp) 40 mg PEG 0600 [facility] Last Admin: 06/20/18 05:22 Dose: 40 mg - Labs Labs: 06/20/18 06:45 06/20/18 06:45 Attending/Attestation - Attestation I have personally seen and examined this patient.: Yes I have fully participated in the care of the patient.: Yes I have reviewed all pertinent clinical information, including history, physical exam and plan: Yes Notes (Text): 06/20/18 11:12 I have seen and examined patient with GI fellow. No acute events overnight. Evidence of oral thrush noted, patient non-verbal at baseline but as per nursing staff no complaint of abdominal pain, vomiting, fever/chills. PEG site examined, appears clean/dry. Patient noted to have residuals with tube feeding at 50 cc. CVA Oral thrush PEG site melisa-stomal wound infection - Continue with tube feeding at reduced rate and titrate upwards slowly as tolerated, maintain aspiration precautions - Continue with antibiotic therapy as per ID - Change dressing at PEG site daily - Gastrostomy tube functioning appropriately, no further planned intervention at this time. Will sign off case, please reconsult as necessary, thank you.
[2018-06-20 07:21] LABS: HEMOGLOBIN 13.9 g/dL (12.0-16.0); MEAN CELL VOLUME 90.5 fl (80.0-105.0); MEAN CORPUSCULAR HEMOGLOBIN 29.2 pg (25.0-35.0); MEAN CORPUSCULAR HGB CONC 32.3 g/dl (31.0-37.0); MEAN PLATELET VOLUME 10.3 fl (7.0-11.0); RBC 4.76 10^6/uL (3.5-6.1); RED CELL DISTRIBUTION WIDTH 15.7 % (11.5-14.5); WHITE BLOOD COUNT 8.9 10^3/uL (4.5-11.0)
[2018-06-20 07:43] LABS: ALBUMIN 3.9 g/dL (3.0-4.8); ALT/SGPT 23 U/L (7-56); AST/SGOT 31 U/L (14-36); BLOOD UREA NITROGEN 10 mg/dL (7-21); CALCIUM 9.4 mg/dL (8.4-10.5); GFR NON-AFRICAN AMERICAN > 60
--- NOTE | 2018-06-20 11:35 | PN ---
DATE: 06/20/2018 SUBJECTIVE: I saw her resting comfortably in bed. She is alert. She looks at me and she smiled. Looks good for her, back to her baseline. She is bedridden. She has some ulcers. She has a bad wound in her PEG tube site and a UTI. PHYSICAL EXAMINATION: VITAL SIGNS: Temperature 98.9, 84 pulse, 143/74 blood pressure, 19 respiratory rate, 100% O2 sat on room air. HEAD: Atraumatic, normocephalic. The throat looks like there is thrush. I will start her on something for that. HEART: Regular rate. LUNGS: Decreased breath sounds. ABDOMEN: Soft. There is a feeding tube and there is pus around the tube site. EXTREMITIES: Contracted. There are ulcers and the urine is not good. LABORATORY DATA: She has an 8.9 white count, 13.9 hemoglobin, 42.1 hematocrit with 290 platelets. Sodium 137, chloride is 107, potassium 3.8, BUN is 10, creatinine 0.2, GFR is greater than 60, sugar is 91, calcium is 9.4, magnesium is 2, total bili is 1.9, AST is 31, ALT is 23, alk phos 111, total protein is 8, lipase is 25. Urine was many bacteria. She is being seen by Infectious Disease and GI. She is on IV antibiotics, vancomycin and Merrem. We will continue aggressive treatment and care for her GI PEG tube site wound infection and UTI. Continue treatment and care. Checking labs tomorrow. Domenic Dunne DO
--- NOTE | 2018-06-20 11:51 | CP.PCM.PN ---
<Anibal Shah - Last Filed: 06/20/18 11:45> Subjective - Date & Time of Evaluation Date of Evaluation: 06/20/18 Time of Evaluation: 08:00 - Subjective Subjective: Anibal Shah D.O. PGY-3, Internal Medicine Resident, Infectious Disease Progress Note 83-year-old female with a past medical history of CVA with residual deficits, hypertension, who presented to [facility] [place] after being sent by PMD for abnormal blood work. Infectious disease consultation was requested for positive wound culture at the PEG tube site. Patient was seen and examined at bedside. Appears comfortable. No acute overnight events noted. Objective - Vital Signs/Intake and Output Vital Signs (last 24 hours): Temp Pulse Resp BP Pulse Ox 98.9 F 84 19 143/74 100 06/20/18 06:00 06/20/18 09:53 06/20/18 06:00 06/20/18 09:53 06/20/18 06:00 Intake and Output: 06/20/18 06/20/18 06:59 18:59 Intake Total 0 Output Total 1700 Balance -1700 - Medications Medications: Current Medications Aspirin (Aspirin Chewable) 81 mg PEG DAILY [facility] Last Admin: 06/20/18 09:53 Dose: 81 mg Clotrimazole (Mycelex Mindy) 10 mg MT 5XD [facility] Last Admin: 06/20/18 09:53 Dose: 10 mg Sodium Chloride (Sodium Chloride 0.9%) 1,000 mls @ 75 mls/hr IV .[id number] [facility] Last Admin: 06/19/18 22:40 Dose: 75 mls/hr Meropenem (Merrem Iv 1 Gm Premix) 1 gm in 50 mls @ 100 mls/hr IVPB Q8 [facility]; P rotocol Stop: 06/25/18 22:01 Last Admin: 06/20/18 05:22 Dose: 100 mls/hr Vancomycin HCl (Vancomycin 1gm) 1 gm in 250 mls @ 167 mls/hr IVPB 0600,1800 [facility]; Protocol Last Admin: 06/20/18 05:23 Dose: 167 mls/hr Metoprolol Tartrate (Lopressor) 25 mg PO BID [facility] Last Admin: 06/20/18 09:53 Dose: 25 mg Pantoprazole Sodium (Protonix Susp) 40 mg PEG 0600 [facility] Last Admin: 06/20/18 05:22 Dose: 40 mg - Labs Labs: 06/20/18 06:45 06/20/18 06:45 - Constitutional Appears: Non-toxic, Chronically Ill female - Head Exam Head Exam: ATRAUMATIC, NORMOCEPHALIC - Eye Exam Eye Exam: absent: Scleral icterus - ENT Exam ENT Exam: Mucous Membranes Moist - Neck Exam Neck exam: Positive for: Normal Inspection - Respiratory Exam Respiratory Exam: absent: Rhonchi, Wheezes - Cardiovascular Exam Cardiovascular Exam: +S1, +S2 - GI/Abdominal Exam GI & Abdominal Exam: peg tube site appears better with little to no drainage - Neurological Exam Neurological exam: Alert, nonverbal - Skin Skin Exam: Dry, Warm Assessment and Plan - Assessment and Plan (Free Text) Assessment: 83-year-old female with a past medical history of CVA with residual deficits, hypertension, who presented to [facility] [place] after being sent by PMD for abnormal blood work. Infectious disease consultation was requested for positive wound culture at the PEG tube site. Plan: Infected PEG tube site Urinary tract infection CVA Hypertension Has been afebrile with no leukocytosis Blood cultures negative 2/2 day 2 Urine culture here shows E coli and Enteroccocus faecalis, MRSA at facility Wound culture showing klebsiella and MSSA At this time will continue meropenem and vancomycin day [address] Mcfarlane's note and recs appreciated We will follow with you Patient was seen and examined and case to be discussed with attending physician Thank you for the pleasure participating in the care of this interesting patient <Rafael Jefferson - Last Filed: 06/20/18 12:17> Objective - Vital Signs/Intake and Output Vital Signs (last 24 hours): Temp Pulse Resp BP Pulse Ox 98.9 F 84 19 143/74 100 06/20/18 06:00 06/20/18 09:53 06/20/18 06:00 06/20/18 09:53 06/20/18 06:00 Intake and Output: 06/20/18 06/20/18 06:59 18:59 Intake Total 0 Output Total 1700 Balance -1700 - Medications Medications: Current Medications Aspirin (Aspirin Chewable) 81 mg PEG DAILY [facility] Last Admin: 06/20/18 09:53 Dose: 81 mg Clotrimazole (Mycelex Mindy) 10 mg MT 5XD [facility] Last Admin: 06/20/18 09:53 Dose: 10 mg Sodium Chloride (Sodium Chloride 0.9%) 1,000 mls @ 75 mls/hr IV .[id number] [facility] Last Admin: 06/19/18 22:40 Dose: 75 mls/hr Meropenem (Merrem Iv 1 Gm Premix) 1 gm in 50 mls @ 100 mls/hr IVPB Q8 [facility]; Protocol Stop: 06/25/18 22:01 Last Admin: 06/20/18 05:22 Dose: 100 mls/hr Vancomycin HCl (Vancomycin 1gm) 1 gm in 250 mls @ 167 mls/hr IVPB 0600,1800 [facility]; Protocol Last Admin: 06/20/18 05:23 Dose: 167 mls/hr Metoprolol Tartrate (Lopressor) 25 mg PO BID [facility] Last Admin: 06/20/18 09:53 Dose: 25 mg Pantoprazole Sodium (Protonix Susp) 40 mg PEG 0600 [facility] Last Admin: 06/20/18 05:22 Dose: 40 mg - Labs Labs: 06/20/18 06:45 06/20/18 06:45 Attending/Attestation - Attestation I have personally seen and examined this patient.: Yes I have fully participated in the care of the patient.: Yes I have reviewed all pertinent clinical information, including history, physical exam and plan: Yes
[2018-06-21] MEDS: Sodium Chloride 0.9% 1,000 ML IV SCH ×2 (04:16→21:45)
[2018-06-21] MEDS: Meropenem IV 1 gm in NS 1 GM/50 ML BAG IVPB SCH ×3 (05:13→21:42)
[2018-06-21] MEDS: Vancomycin 1gm in NS 250ml 1 GM/250 ML BAG IVPB SCH ×2 (05:13→17:21)
[2018-06-21] MEDS: Pantoprazole 40 mg Susp UD PEG SCH (05:13)
[2018-06-21 08:02] LABS: HEMOGLOBIN 13.4 g/dL (12.0-16.0); MEAN CELL VOLUME 88.9 fl (80.0-105.0); MEAN CORPUSCULAR HEMOGLOBIN 29.7 pg (25.0-35.0); MEAN CORPUSCULAR HGB CONC 33.4 g/dl (31.0-37.0); MEAN PLATELET VOLUME 10.2 fl (7.0-11.0); RBC 4.51 10^6/uL (3.5-6.1); RED CELL DISTRIBUTION WIDTH 15.5 % (11.5-14.5); WHITE BLOOD COUNT 9.5 10^3/uL (4.5-11.0)
[2018-06-21 08:10] LABS: ALBUMIN 3.8 g/dL (3.0-4.8); ALT/SGPT 15 U/L (7-56); AST/SGOT 28 U/L (14-36); BLOOD UREA NITROGEN 6 mg/dL (7-21); CALCIUM 9.3 mg/dL (8.4-10.5); GFR NON-AFRICAN AMERICAN > 60
--- NOTE | 2018-06-21 13:27 | PN ---
DATE: 06/21/2018 SUBJECTIVE: She is resting comfortably in bed. She is on IV antibiotics. She does open her eyes that is her baseline. She has a PEG tube ulcer from the tube itself and oozing and urinary tract infections. MEDICATIONS: She is on aspirin, Lopressor, Merrem IV, Protonix, IV fluids, and vancomycin. OBJECTIVE: VITAL SIGNS: She has a 99.4 temperature, 99 pulse, 178/86 blood pressure, 145/95 blood pressure, 20 respiratory rate, 96% O2 sat on room air. I will help the medicine for the blood pressure. HEENT: Head is atraumatic, normocephalic. HEART: Regular rate. LUNGS: Decreased breath sounds. ABDOMEN: Soft, obese, nontender. The PEG tube is in place. EXTREMITIES: Contracted. LABORATORY DATA: She has a 9.5 white count, 13.4 hemoglobin, 40.1 hematocrit with a 307 platelets. Sodium 138, potassium 3.1, I will replace the potassium. BUN 6, creatinine 0.2, GFR is greater than 60, sugar is 97, calcium is 9.3, total bili is 1.3, AST is 20, ALT is 15, alk phos 20, total protein 7.7. Urine was large. There is Klebsiella pneumonia in the Gram stain has E. coli in the urine, Staph aureus in the Gram stain. ASSESSMENT AND PLAN: She is being seen by Infectious Disease and Gastroenterology. Continue with IV antibiotics and treatment and care. The patient is on IV antibiotics. We will adjust her blood pressure and her potassium. Domenic Dunne DO MTDBlas
[2018-06-21 18:58] LABS: HEMOGLOBIN 13.6 g/dL (12.0-16.0); MEAN CELL VOLUME 89.3 fl (80.0-105.0); MEAN CORPUSCULAR HEMOGLOBIN 29.8 pg (25.0-35.0); MEAN CORPUSCULAR HGB CONC 33.3 g/dl (31.0-37.0); MEAN PLATELET VOLUME 9.8 fl (7.0-11.0); RBC 4.57 10^6/uL (3.5-6.1); RED CELL DISTRIBUTION WIDTH 15.8 % (11.5-14.5); WHITE BLOOD COUNT 11.1 10^3/uL (4.5-11.0)
[2018-06-21 19:13] LABS: BLOOD UREA NITROGEN 5 mg/dL (7-21); GFR NON-AFRICAN AMERICAN > 60
[2018-06-21 22:28] LABS: PH,URINE 7.5 (4.7-8.0); URINE APPEARANCE SLIGHT-CLOUDY (CLEAR); URINE BILIRUBIN NEGATIVE (NEGATIVE); URINE BLOOD LARGE (NEGATIVE); URINE COLOR LIGHT YELLOW (YELLOW); URINE GLUCOSE (UA) NEGATIVE (NEGATIVE); URINE LEUKOCYTE ESTERASE SMALL Leu/uL (NEGATIVE); URINE PROTEIN 30 mg/dL (<30 mg/dL); URINE UROBILINOGEN 0.2 E.U./dL (<1 E.U./dL)
[2018-06-21 22:34] LABS: URINE EPITHELIAL CELLS 0 - 2 /hpf (0-5); URINE RBC 25 - 30 /hpf (0-2)
--- NOTE | 2018-06-21 23:49 | PN ---
DATE: 06/21/2018 SUBJECTIVE: The patient is seen earlier today in room 565, bed 1. No fevers and no chills. PHYSICAL EXAMINATION: VITAL SIGNS: Temperature is 98, respiratory rate of 18, heart rate of 93. HEENT: Unremarkable. NECK: Supple. LUNGS: Have decreased breath sounds. HEART: Normal S1 and S2. ABDOMEN: Soft. LABORATORY DATA: Reveals a white count of 11,000, hemoglobin of 13. Chemistries reveal a BUN of 5 and creatinine of 0.2. Urinalysis is noted. Microbiology is noted; E. coli and Enterococcus in the urine. Klebsiella and staph on the PEG. Klebsiella is relatively sensitive, as is the staph. E. coli is also somewhat sensitive, it is resistant to Cipro and Bactrim. Enterococcus is sensitive to ampicillin. REVIEW OF ORDERS: Reveals the patient is on vancomycin and meropenem. ASSESSMENT AND PLAN: This is an 83-year-old female with past medical history of cerebrovascular accident with residual deficit and hypertension, who presented with an infected percutaneous endoscopic gastrostomy tube site polymicrobial and urinary tract infection. Overall in poor condition. We will continue her present course. Rafael Jefferson MD
[2018-06-22] MEDS: Meropenem IV 1 gm in NS 1 GM/50 ML BAG IVPB SCH ×3 (05:50→22:09)
[2018-06-22] MEDS: Pantoprazole 40 mg Susp UD PEG SCH (05:50)
[2018-06-22] MEDS: Vancomycin 1gm in NS 250ml 1 GM/250 ML BAG IVPB SCH ×2 (06:44→17:26)
[2018-06-22 07:38] LABS: HEMOGLOBIN 13.6 g/dL (12.0-16.0); MEAN CELL VOLUME 89.9 fl (80.0-105.0); MEAN CORPUSCULAR HEMOGLOBIN 29.3 pg (25.0-35.0); MEAN CORPUSCULAR HGB CONC 32.6 g/dl (31.0-37.0); MEAN PLATELET VOLUME 10.5 fl (7.0-11.0); RBC 4.64 10^6/uL (3.5-6.1); RED CELL DISTRIBUTION WIDTH 15.8 % (11.5-14.5); WHITE BLOOD COUNT 9.9 10^3/uL (4.5-11.0)
[2018-06-22 07:59] LABS: ALBUMIN 3.3 g/dL (3.0-4.8); ALT/SGPT 13 U/L (7-56); AST/SGOT 25 U/L (14-36); BLOOD UREA NITROGEN 9 mg/dL (7-21); CALCIUM 8.7 mg/dL (8.4-10.5); GFR NON-AFRICAN AMERICAN > 60
--- NOTE | 2018-06-22 09:05 | PCM.URO ---
Urology Progress Note - Objective Lab Studies: Reviewed (full note to be dictated thanks for gu consult will discuss further plans) Lab Results Last 24 Hours: Laboratory Results - last 24 hr 06/21/18 06/21/18 06/21/18 18:40 18:40 22:00 WBC 11.1 H RBC 4.57 Hgb 13.6 Hct 40.8 MCV 89.3 MCH 29.8 MCHC 33.3 RDW 15.8 H Plt Count 286 MPV 9.8 Sodium 136 Potassium 3.3 L Chloride 103 Carbon Dioxide 25 Anion Gap 11 BUN 5 L Creatinine 0.2 L Est GFR ( Amer) > 60 Est GFR (Non-Af Amer) > 60 Random Glucose 101 Calcium 9.0 Total Bilirubin AST ALT Alkaline Phosphatase Total Protein Albumin Globulin Albumin/Globulin Ratio Urine Color Light yellow Urine Appearance Slight-cloudy Urine pH 7.5 Ur Specific [place] 1.020 Urine Protein 30 H Urine Glucose (UA) Negative Urine Ketones 15 H Urine Blood Large H Urine Nitrate Negative Urine Bilirubin Negative Urine Urobilinogen 0.2 Ur Leukocyte Esterase Small H Urine RBC 25 - 30 H Urine WBC 2 - 5 Ur Epithelial Cells 0 - 2 06/22/18 06/22/18 07:15 07:15 WBC 9.9 RBC 4.64 Hgb 13.6 Hct 41.7 MCV 89.9 MCH 29.3 MCHC 32.6 RDW 15.8 H Plt Count 264 MPV 10.5 Sodium 138 Potassium 3.2 L Chloride 107 Carbon Dioxide 22 Anion Gap 12 BUN 9 Creatinine 0.2 L Est GFR ( Amer) > 60 Est GFR (Non-Af Amer) > 60 Random Glucose 90 Calcium 8.7 Total Bilirubin 1.4 H AST 25 ALT 13 Alkaline Phosphatase 81 Total Protein 6.8 Albumin 3.3 Globulin 3.5 Albumin/Globulin Ratio 1.0 L Urine Color Urine Appearance Urine pH Ur Specific [place] Urine Protein Urine Glucose (UA) Urine Ketones Urine Blood Urine Nitrate Urine Bilirubin Urine Urobilinogen Ur Leukocyte Esterase Urine RBC Urine WBC Ur Epithelial Cells Intake & Output: Intake & Output 06/21/18 06/22/18 06/22/18 18:59 06:59 18:59 Intake Total 1800 Output Total 800 550 Balance -800 1250 Intake: IV 1800 Left Hand 1800 Output: Urine 800 550 Urethral (Fish) 800 550 Other: # Bowel Movements 1 Vital Signs: Vital Signs - 24 hr 06/21/18 06/22/18 22:00 06:00 Temperature 99.6 F 97.7 F Pulse Rate 89 88 Respiratory 18 20 Rate Blood Pressure 152/96 H 129/92 H O2 Sat by Pulse 99 97 Oximetry
[2018-06-22] MEDS: Home Med 1 UNIT PO SCH ×3 (12:49→20:30)
[2018-06-22] MEDS: Sodium Chloride 0.9% 1,000 ML IV SCH (13:12)
--- NOTE | 2018-06-22 13:42 | PN ---
DATE: 06/22/2018 SUBJECTIVE: I saw . Her eyes are open. She is lying in bed, no apparent distress. She is on aspirin, metoprolol, Merrem IV, Protonix, IV fluid with vancomycin IV. PHYSICAL EXAMINATION VITAL SIGNS: She has a 97.7 temperature, 88 pulse, 129/92 blood pressure, her blood pressure has been little bit elevated 152/96, change her blood pressure medications around, 20 respiratory rate, 97% O2 sat on room air. HEENT: Head is atraumatic and normocephalic. She open her eyes. She smiles. She looked at me that is her baseline. Nonverbal. HEART: Regular rate. LUNGS: Decreased breath sounds. ABDOMEN: Soft. There is still oozing around the feeding tube side, but not us much. Positive bowel sounds. EXTREMITIES: Contracted. No edema. I am going to probably increase her metoprolol to 50 mg twice a day. LABORATORY DATA: She has a 9.9 white count better, 13.6 hemoglobin, 41.7 hematocrit with 264 platelets. She has a 138, potassium 3.2, I am going to give her 40 mEq of potassium chloride today, BUN is 9, creatinine 0.2, GFR is greater than 60, sugar is 90, calcium is 8.7, total bili is 1.4, AST is 25, ALT is 13, alk phos 81, total protein 6.8. She rule out Klebsiella Staphylococcus aureus, Escherichia coli, Enterococcus in cultures. ASSESSMENT AND PLAN: She is being by Urology for hematuria, which happened yesterday, which is now clearing up, which is great. She had a wound infection by the PEG tube and urinary tract infection, hypertension, low potassium, hematuria. Domenic Dunne DO MTDD
--- NOTE | 2018-06-22 14:40 | PN ---
DATE: 06/22/2018 SUBJECTIVE: The patient is seen in bed, in no acute distress, nontoxic. PHYSICAL EXAMINATION: VITAL SIGNS: Temperature is 97, blood pressure is 120/80, respiratory rate of 20, heart rate of 88. HEENT: Unremarkable. NECK: Supple. LUNGS: Have decreased breath sounds. HEART: Normal S1 and S2. ABDOMEN: Soft and nontender. LABORATORY DATA: White count of 9.9, hemoglobin of 13. Chemistries reveal a BUN of 9 and creatinine of 0.2. Urinalysis is noted. Microbiology reveals PEG site is growing Klebsiella and staph. The Klebsiella is relatively sensitive and the staph is oxacillin sensitive. THE PATIENT HAS NO KNOWN ALLERGIES. ASSESSMENT AND PLAN: This is an 83-year-old female who is admitted with past medical history of cerebrovascular accident with residual deficit and hypertension, presented with infected percutaneous endoscopic gastrostomy tube site and polymicrobial, and may be able to switch to p.o. The patient's urine also has Escherichia coli and Enterococcus. Enterococcus is sensitive to ampicillin. The Escherichia coli is sensitive to cefazolin and currently on vancomycin and meropenem. We may be able to change to cefazolin upon discharge for a short of course of therapy of Keflex. This patient has a very poor quality of life. Rafael Jefferson MD
[2018-06-22] MEDS ORDERED: Home Med 1 UNIT PO SCH (15:30)
[2018-06-23] MEDS: Home Med 1 UNIT PO SCH ×6 (00:30→20:30)
[2018-06-23] MEDS: Pantoprazole 40 mg Susp UD PEG SCH (05:36)
[2018-06-23] MEDS: Vancomycin 1gm in NS 250ml 1 GM/250 ML BAG IVPB SCH ×2 (05:36→19:13)
[2018-06-23 07:30] LABS: HEMOGLOBIN 12.4 g/dL (12.0-16.0); MEAN CELL VOLUME 90.9 fl (80.0-105.0); MEAN CORPUSCULAR HEMOGLOBIN 28.8 pg (25.0-35.0); MEAN CORPUSCULAR HGB CONC 31.7 g/dl (31.0-37.0); MEAN PLATELET VOLUME 10.2 fl (7.0-11.0); RBC 4.3 10^6/uL (3.5-6.1); RED CELL DISTRIBUTION WIDTH 16.2 % (11.5-14.5); WHITE BLOOD COUNT 9.3 10^3/uL (4.5-11.0)
[2018-06-23 07:50] LABS: ALB/GLOB RATIO 0.8 (1.1-1.8); ALBUMIN 2.9 g/dL (3.0-4.8); ALT/SGPT 14 U/L (7-56); AST/SGOT 20 U/L (14-36); BLOOD UREA NITROGEN 11 mg/dL (7-21); CALCIUM 8.5 mg/dL (8.4-10.5); GFR NON-AFRICAN AMERICAN > 60
[2018-06-23] MEDS: Meropenem IV 1 gm in NS 1 GM/50 ML BAG IVPB SCH ×3 (07:59→21:22)
--- NOTE | 2018-06-23 13:40 | PN ---
DATE: 06/23/2018 SUBJECTIVE: She is resting comfortably in bed. She does open her eyes. She looked at me with a little bit of a smile. She understands what I am saying. She is on IV antibiotics for the PEG tube site wound and infection and urinary tract infection. MEDICATIONS: She is on aspirin, Lopressor, Merrem IV, Protonix, IV fluids and vancomycin IV. PHYSICAL EXAMINATION: VITAL SIGNS: She has a 98.4 temperature, 86 pulse, 144/76 blood pressure, 17 respiratory rate, 97% O2 sat. Last temperature was 99.7 at 10 o'clock last night, now it is 98.4. HEAD: Atraumatic, normocephalic. HEART: Regular rate. LUNGS: Decreased breath sounds, but clear. ABDOMEN: Soft, obese with a PEG tube with a little bit of oozing not as bad as when she came in. EXTREMITIES: Contracted with no edema. LABORATORY DATA: She has a 9.3 white count, 12.4 hemoglobin, 39.1 hematocrit with 243 platelets. Sodium 141, potassium 3.7, BUN 11, creatinine 0.3, GFR is greater than 60, sugar is 93, calcium 8.5. Total bili is 1.3, AST is 20, ALT is 14, alk phos 82, total protein 6.3. ASSESSMENT AND PLAN: She had multiple things growing in the urine and in the Gram stain as per Urology. She had hematuria which resolved and Infectious Disease had her on antibiotics. Multiple issues. She is bed-bound at home. As per Infectious Disease, they changed it to tablets. I will discharge her. She is here for a PEG tube wound with discharge and urinary tract infection. Domenic Dunne DO
[2018-06-23 14:58] VITALS: RESP 20
[2018-06-23 23:35] VITALS: O2SAT 96
[2018-06-24] MEDS: Home Med 1 UNIT PO SCH ×5 (00:30→16:23)
--- NOTE | 2018-06-24 02:02 | PN ---
DATE: 06/23/2018 SUBJECTIVE: The patient is seen in bed, in no acute distress. The patient was seen in 565, bed 1. PHYSICAL EXAMINATION: VITAL SIGNS: Temperature is 98, blood pressure is 150/100, respiratory rate of 18, heart rate of 91. HEENT: Unremarkable. NECK: Supple. LUNGS: Have decreased breath sounds. HEART: Normal S1 and S2. ABDOMEN: Soft. LABORATORY DATA: Laboratory examination reveals a white count of 9.3, hemoglobin of 12. BUN of 11, creatinine of 0.3. Urinalysis is noted. Microbiology reveals the PEG site is noted to have Klebsiella and Staphylococcus aureus. Klebsiella is sensitive and Staphylococcus aureus is also oxacillin sensitive. ASSESSMENT AND PLAN: This is an 83-year-old female who was admitted with past medical history of cerebrovascular accident with residual deficit and hypertension who presented with infected percutaneous endoscopic gastrostomy tube site and polymicrobial and Escherichia coli, Klebsiella and Staphylococcus. The patient's urine has Escherichia coli and Enterococcus. May be able to switch to oral antibiotics upon discharge. The patient is afebrile. White count is normal. We will follow with you. Rafael Jefferson MD
[2018-06-24] MEDS: Meropenem IV 1 gm in NS 1 GM/50 ML BAG IVPB SCH ×2 (05:29→13:14)
[2018-06-24] MEDS: Pantoprazole 40 mg Susp UD PEG SCH (05:32)
[2018-06-24] MEDS: Vancomycin 1gm in NS 250ml 1 GM/250 ML BAG IVPB SCH ×2 (06:04→16:23)
[2018-06-24 06:57] LABS: HEMOGLOBIN 12.4 g/dL (12.0-16.0); MEAN CELL VOLUME 91.4 fl (80.0-105.0); MEAN CORPUSCULAR HEMOGLOBIN 29.5 pg (25.0-35.0); MEAN CORPUSCULAR HGB CONC 32.2 g/dl (31.0-37.0); MEAN PLATELET VOLUME 10.4 fl (7.0-11.0); RBC 4.21 10^6/uL (3.5-6.1); WHITE BLOOD COUNT 9.7 10^3/uL (4.5-11.0)
[2018-06-24 07:25] LABS: ALBUMIN 3.4 g/dL (3.0-4.8); ALT/SGPT 18 U/L (7-56); AST/SGOT 20 U/L (14-36); BLOOD UREA NITROGEN 10 mg/dL (7-21); CALCIUM 8.7 mg/dL (8.4-10.5); GFR NON-AFRICAN AMERICAN > 60
[2018-06-24 07:59] VITALS: BP 149/92; PULSE 86; TEMP 97.4
[2018-06-24] MEDS ORDERED: Potassium Chloride 20 mEq/15 ml LIQ UD PO ONE (09:23)
--- NOTE | 2018-06-24 13:28 | DS ---
HISTORY OF PRESENT ILLNESS: Hopefully, she will go home today. GI adjusted her feeding tube. She has been on IV antibiotics, Merrem and vancomycin by Infectious Disease. PHYSICAL EXAMINATION: GENERAL: She is comfortable in bed, back to her baseline. She smiles and looks she is at the baseline. She is completely bedridden. VITAL SIGNS: She has 97.4 temperature, 86 pulse, 149/92 blood pressure, 20 respiratory rate, 96% O2 sat. HEENT: Head is atraumatic, normocephalic. HEART: Regular rate. LUNGS: Decreased breath sounds, but clear. ABDOMEN: Soft and nontender. Feeding tube in place. Positive bowel sounds. No guarding. No rebound. EXTREMITIES: Contracted. No edema. MEDICATIONS: She is on aspirin; Lopressor, I bumped up to 50 twice a day; Protonix; IV fluids and vancomycin. LABORATORY DATA: She has a 9.7 white count, 12.4 hemoglobin, 38.5 hematocrit with 261 platelets. Sodium 141, potassium 3.4, potassium this morning. BUN 10, creatinine 0.2, GFR is greater than 60, sugar is 109, calcium is 8.7, total bili is 0.1. AST is 20, ALT is 18, alk phos 94, total protein 6.8. Urine is much better than when she came in. She gets some potassium and could be discharge her today. Awaiting for Infectious Disease to come in to let us know what oral antibiotics she wants she can leave. I am hoping to see her on a house call next week. This is a discharge summary on the patient, Bonny Ott, who came in with infection picture, wound infection, hypertension, low potassium, and UTI. Domenic Dunne DO MTDBlas
--- NOTE | 2018-06-24 23:54 | PN ---
DATE: 06/24/2018 SUBJECTIVE: The patient is seen in bed, in no acute distress, and nontoxic. The patient seen earlier today. OBJECTIVE: VITAL SIGNS: Temperature is 97, blood pressure is 140/90, and respiratory rate of 18. HEENT: Unremarkable. NECK: Supple. LUNGS: Have decreased breath sounds. HEART: Normal S1 and S2. ABDOMEN: Soft. LABORATORY DATA: Reveals a white count of 9.7. Chemistries are noted. Urinalysis is noted and microbiology is reviewed. Urine culture is E. coli and Enterococcus. PEG culture is also noted. Blood cultures are negative. ASSESSMENT AND PLAN: This is an 83-year-old female who was seen early this morning in room 565, bed 1, admitted with cerebrovascular accident, residual deficit by history and hypertension, infected percutaneous endoscopic gastrostomy tube site and polymicrobial and also with Escherichia coli, Klebsiella, and Staphylococcus, may be able to use p.o. Keflex treat as outpatient to complete therapy as discussed with nursing staff and PMD. Rafael Jefferson MD
== END 2018-06-24 20:23 | disposition home health service (06) | DRG 394 ==
LOC: ED 14:42 → ERH 18:01 → 5RNO 21:27
PROVIDERS: ADMIT Family Medicine; ATTEND Family Medicine
PROC: 3E0G76Z Introduction of Nutritional Substance into Upper GI, Via Natural or Artificial Opening (ICD-10-PCS; principal; 2018-06-19)
DX: K94.22 Gastrostomy infection (principal); N39.0 Urinary tract infection, site not specified; R47.01 Aphasia; B37.0 Candidal stomatitis; B95.62 Methicillin resistant Staphylococcus aureus infection as the cause of diseases classified elsewhere; B96.5 Pseudomonas (aeruginosa) (mallei) (pseudomallei) as the cause of diseases classified elsewhere; B96.20 Unspecified Escherichia coli [E. coli] as the cause of diseases classified elsewhere; I10 Essential (primary) hypertension; F03.90 Unspecified dementia, unspecified severity, without behavioral disturbance, psychotic disturbance, mood disturbance, and anxiety; R13.10 Dysphagia, unspecified; L98.491 Non-pressure chronic ulcer of skin of other sites limited to breakdown of skin; I69.30 Unspecified sequelae of cerebral infarction; R31.9 Hematuria, unspecified; E87.6 Hypokalemia; Z74.01 Bed confinement status

== ENCOUNTER 2018-06-30 11:13 | Observation (INO) | payer MEDICARE ==
[2018-06-30 11:37] VITALS: BMI 26.6
--- NOTE | 2018-06-30 11:44 | ED PDOC ---
Arrival/HPI - General Time Seen by Provider: 06/30/18 11:35 Historian: Other (Dr. Cooper) - History of Present Illness Narrative History of Present Illness (Text): 06/30/18 11:41 83 year old female, with past medical history of CVA, hypertension, PEG tube in place, non-verbal, was referred to the ED for evaluation of PEG tube today. No other complaints presented. ROS limited secondary to patient's clinical condition. PMD: Dr. Cooper Time/Duration: Prior to Arrival Symptom Onset: Gradual Symptom Course: Unchanged Activities at Onset: Light Context: Home Past Medical History - Provider Review Nursing Documentation Reviewed: Yes - Cardiac Hx Cardiac Disorders: Yes Hx Hypertension: Yes - Pulmonary Hx Respiratory Disorders: No - Neurological Hx Neurological Disorder: Yes HX Cerebrovascular Accident: Yes - HEENT Hx HEENT Disorder: No - Renal Hx Renal Disorder: No - Endocrine/Metabolic Hx Endocrine Disorders: No - Hematological/Oncological Hx Blood Disorders: No - Integumentary Hx Dermatological Disorder: No - Musculoskeletal/Rheumatological Hx Musculoskeletal Disorders: Yes Hx Falls: Yes Other/Comment: contracted upper and lower extremities. contracted mouth - Gastrointestinal Hx Gastrointestinal Disorders: No - Genitourinary/Gynecological Hx Genitourinary Disorders: Yes Hx Incontinence: Yes - Psychiatric Hx Psychophysiologic Disorder: No Hx Substance Use: No - Surgical History Other/Comment: FEEDING TUBE INSERTION - Anesthesia Hx Anesthesia: Yes Hx Anesthesia Reactions: No Hx Malignant Hyperthermia: No Family/Social History - Physician Review Nursing Documentation Reviewed: Yes Family/Social History: No Known Family HX Smoking Status: Unknown If Ever Smoked Hx Alcohol Use: No Hx Substance Use: No Allergies/Home Meds Allergies/Adverse Reactions: Allergies No Known Allergies Allergy (Verified 01/07/18 19:39) Review of Systems - Review of Systems Systems not reviewed;Unavailable: Acuity of Condition (Aphasic, non-verbal at bedside secondary to history of CVA) Physical Exam Vital Signs Reviewed: Yes Vital Signs Temp Pulse Resp BP Pulse Ox 06/30/18 11:14 98.3 F 76 18 116/71 100 Temperature: Afebrile Blood Pressure: Normal Pulse: Regular Respiratory Rate: Normal Appearance: Positive for: Well-Appearing, Non-Toxic, Comfortable Pain Distress: None - Systems Exam Head: Present: Atraumatic, Normocephalic Pupils: Present: PERRL Extroacular Muscles: Present: EOMI Conjunctiva: Present: Normal Mouth: Present: Moist Mucous Membranes Neck: Present: Normal Range of Motion Respiratory/Chest: Present: Clear to Auscultation, Good Air Exchange. No: Respiratory Distress, Accessory Muscle Use Cardiovascular: Present: Regular Rate and Rhythm, Normal S1, S2. No: Murmurs Abdomen: Present: Feeding Tubes (Mild crusting around her PEG tube). No: Tenderness, Distention, Peritoneal Signs Back: Present: Normal Inspection Upper Extremity: Present: Normal Inspection. No: Cyanosis, Edema Lower Extremity: Present: Normal Inspection. No: Edema Neurological: Present: GCS=15 Skin: Present: Warm, Dry, Normal Color. No: Rashes Psychiatric: Present: Alert Medical Decision Making ED Course and Treatment: 06/30/18 11:46 Impression: 83 year old female presents to the ED for evaluation of PEG tube. Plan: -- Reassess and disposition Prior Visits: Notes and results from previous visits were reviewed. Progress Notes: 06/30/18 16:32 seen by johnathon carroll (family request). request ct scan and overnight obs. dr cooper accepts - Scribe Statement The provider has reviewed the documentation as recorded by the Scribe Felipe Koehler. All medical record entries made by the Scribe were at my direction and personally dictated by me. I have reviewed the chart and agree that the record accurately reflects my personal performance of the history, physical exam, medical decision making, and the department course for this patient. I have also personally directed, reviewed, and agree with the discharge instructions and disposition. Disposition/Present on Arrival - Present on Arrival Any Indicators Present on Arrival: No History of DVT/PE: No History of Uncontrolled Diabetes: No Urinary Catheter: Yes History Surgical Site Infection Followin - Disposition Have Diagnosis and Disposition been Completed?: Yes Diagnosis: PEG tube malfunction Disposition: HOSPITALIZED Disposition Time: 15:00 Condition: STABLE
--- NOTE | 2018-06-30 13:31 | CP.PCM.CON ---
<Lolita Carpio - Last Filed: 06/30/18 13:43> History of Present Illness - History of Present Illness History of Present Illness: Gastroenterology Fellow/PGY6 Consult Note 83 year old female with PMH of PEG placement / CVA 2014 (non-verbal, bed=bound), HTN, chronic sacral decubitus ulcers, and oral thrush presenting for evaluation of discharge at PEG site. On record review, history of concern for PEG tube malfunction and drainage since 09/2016. Prior PEG site cultures since 12/2017 confirmed MRSA, Pseudomonas, and Klebsiella with prior Infectious disease recommendations of possible colonization versus active wound infection. Recent discharge 06/24/18 for Ecoli/E. facealis UTI and PEG tube drainage with concern for PEG site wound infection. Infectious disease recommended inpatient antibiotics and continuation of Keflex on discharge to cover UTI and polymicrobials on PEG site culture. Family History- unable to confirm Social History- lives with family Surgical History- PEG tube placement ~2014 Review of Systems - Review of Systems Review of Systems: unable to complete 12-point review of systems due to being non-verbal with history of CVA Past Patient History - Infectious Disease Hx of Infectious Diseases: MRSA - Past Social History Smoking Status: Unknown If Ever Smoked - CARDIAC Hx Cardiac Disorders: Yes Hx Hypertension: Yes - PULMONARY Hx Respiratory Disorders: No - NEUROLOGICAL Hx Neurological Disorder: Yes HX Cerebrovascular Accident: Yes - HEENT Hx HEENT Problems: No - RENAL Hx Chronic Kidney Disease: No - ENDOCRINE/METABOLIC Hx Endocrine Disorders: No - HEMATOLOGICAL/ONCOLOGICAL Hx Blood Disorders: No - INTEGUMENTARY Hx Dermatological Problems: No - MUSCULOSKELETAL/RHEUMATOLOGICAL Hx Musculoskeletal Disorders: Yes Hx Falls: Yes Other/Comment: contracted upper and lower extremities. contracted mouth - GASTROINTESTINAL Hx Gastrointestinal Disorders: No - GENITOURINARY/GYNECOLOGICAL Hx Genitourinary Disorders: Yes Hx Incontinence: Yes - PSYCHIATRIC Hx Psychophysiologic Disorder: No Hx Substance Use: No - SURGICAL HISTORY Other/Comment: FEEDING TUBE INSERTION - ANESTHESIA Hx Anesthesia: Yes Hx Anesthesia Reactions: No Hx Malignant Hyperthermia: No Meds Allergies/Adverse Reactions: Allergies Allergy/AdvReac Type Severity Reaction Status Date / Time No Known Allergies Allergy Verified 01/07/18 19:39 Physical Exam - Constitutional Appears: No Acute Distress, Other - Head Exam Head Exam: ATRAUMATIC, NORMOCEPHALIC - Eye Exam Eye Exam: PERRL. absent: Scleral icterus Pupil Exam: PERRL. absent: Miosis, Mydriatic - Neck Exam Neck exam: Positive for: Normal Inspection - Respiratory Exam Respiratory Exam: Clear to Auscultation Bilateral. absent: Rales, Rhonchi - Cardiovascular Exam Cardiovascular Exam: RRR, +S1, +S2. absent: Gallop, Rubs - GI/Abdominal Exam GI & Abdominal Exam: Normal Bowel Sounds, Soft. absent: Distended, Firm, Guarding, Tenderness Additional comments: LUQ PEG site- granulation tissue, no signs of ulceration/bleeding, light yellow discharge present while moving balloon G-tube during assessment of G-tube tract, G-tube with residual feeding Results - Vital Signs Recent Vital Signs: Last Vital Signs Temp 98.3 F 06/30/18 11:14 Pulse 76 06/30/18 11:14 Resp 18 06/30/18 11:14 BP 116/71 06/30/18 11:14 Pulse Ox 100 06/30/18 11:14 Assessment & Plan - Assessment and Plan (Free Text) Assessment: 83 year old female with PMH of PEG placement 04/26 CVA 2014 (non-verbal, bed=bound), HTN, chronic sacral decubitus ulcers, and oral thrush presenting for evaluation of discharge at PEG site. Recent discahrge 06/24/18 for E. coli/E. faecalis UTI and PEG tube drainage with concern for PEG site wound infection. Infectious disease recommended inpatient antibiotics and continuation of Keflex on discharge to cover UTI and polymicrobials on PEG site culture. Plan: -PEG site drainage on exam without ulceration or cellulitis -prior concern for PEG tube colonization with cultures 12/2017 and 05/2018- MRSA, Klebsiella, Pseudomonas -obtain CT A/P cross-sectional imaging to rule out intra-abdominal abscess/fluid collection -obtain ID consultation for recommendation on antibiotic indication -will provide further recommendations after cross-sectional imaging on PEG tube management -will follow clinical course <Sameer Cross V - Last Filed: 07/01/18 00:44> Meds - Medications Medications: Current Medications Amlodipine Besylate (Norvasc) 10 mg PEG DAILY [facility] Aspirin (Aspirin Chewable) 81 mg PEG DAILY [facility] Cephalexin Monohydrate (Keflex) 500 mg PO BID [facility]; Protocol Last Admin: 06/30/18 21:57 Dose: 500 mg Cyclobenzaprine HCl (Flexeril) 10 mg PEG HS [facility] Last Admin: 06/30/18 21:58 Dose: 10 mg Metoprolol Tartrate (Lopressor) 25 mg PO BID [facility] Last Admin: 06/30/18 18:34 Dose: Not Given Pantoprazole Sodium (Protonix Ec Tab) 40 mg PO DAILY [facility] Results - Vital Signs Recent Vital Signs: Last Vital Signs Temp 98.3 F 06/30/18 11:14 Pulse 71 06/30/18 18:34 Resp 18 06/30/18 20:33 BP 117/70 06/30/18 18:34 Pulse Ox 100 06/30/18 18:32 - Labs Result Diagrams: 06/30/18 14:43 06/30/18 14:43 Labs: Laboratory Results - last 24 hr 06/30/18 06/30/18 06/30/18 14:43 14:43 14:43 WBC 9.4 RBC 4.37 Hgb 13.0 Hct 40.2 MCV 92.0 MCH 29.7 MCHC 32.3 RDW 15.6 H Plt Count 381 MPV 10.0 Neut % (Auto) 69.0 H Lymph % (Auto) 20.8 L [place] % (Auto) 5.2 Eos % (Auto) 4.6 Baso % (Auto) 0.4 Lymph # (Auto) 2.0 [place] # (Auto) 0.5 Eos # (Auto) 0.4 Baso # (Auto) 0.04 Absolute Neuts (auto) 6.52 H PT 11.8 INR 1.06 APTT 32.2 Sodium 137 Potassium 5.0 Chloride 101 Carbon Dioxide 29 Anion Gap 12 BUN 17 Creatinine 0.4 L Est GFR ( Amer) > 60 Est GFR (Non-Af Amer) > 60 Random Glucose 88 Calcium 9.3 Total Bilirubin 0.7 AST 36 D ALT 26 Alkaline Phosphatase 117 Total Protein 7.8 Albumin 3.9 Globulin 3.9 Albumin/Globulin Ratio 1.0 L Attending/Attestation - Attestation I have personally seen and examined this patient.: Yes I have fully participated in the care of the patient.: Yes I have reviewed all pertinent clinical information: Yes Notes (Text): This patient was seen and evaluated along with the GI fellow earlier. This is an addendum to the GI consultation report dictated by the fellow. PEG tube site was carefully examined. No signs of cellulitis. Patient appeared to have granulation tissue M discharge around the feeding tube. Would be too much multiple admissions for this similar recent episode. Would recommend CT of the abdomen and pelvis to rule out any intra-abdominal abdominal wall abscess at the site of the PEG tube PEG site wound swab culture probably the organisms colonization clinically does not appear to have signs of inflamed infectious infection. Patient's family is concerned about the discharge we will request ID consult to further evaluate 07/01/18 00:42
[2018-06-30 14:57] LABS: BASO # 0.04 K/mm3 (0.0-2.0); BASO % 0.4 % (0.0-3.0); EOS # 0.4 (0.0-0.7); EOS % 4.6 % (1.5-5.0); LYMPH % 20.8 % (22.0-35.0); MEAN CORPUSCULAR HEMOGLOBIN 29.7 pg (25.0-35.0); MEAN CORPUSCULAR HGB CONC 32.3 g/dl (31.0-37.0); MONO # 0.5 (0.1-0.6); MONO % 5.2 % (1.0-6.0); RBC 4.37 10^6/uL (3.5-6.1); RED CELL DISTRIBUTION WIDTH 15.6 % (11.5-14.5); WHITE BLOOD COUNT 9.4 10^3/uL (4.5-11.0)
[2018-06-30 15:05] LABS: INR 1.06; PARTIAL THROMBOPLASTIN TIME 32.2 Seconds (26.9-38.3); PROTHROMBIN TIME 11.8 SECONDS (9.4-12.5)
[2018-06-30 15:09] LABS: ALBUMIN 3.9 g/dL (3.0-4.8); ALT/SGPT 26 U/L (7-56); AST/SGOT 36 U/L (14-36); BLOOD UREA NITROGEN 17 mg/dL (7-21); CALCIUM 9.3 mg/dL (8.4-10.5); GFR NON-AFRICAN AMERICAN > 60
--- NOTE | 2018-06-30 16:01 | CT ---
Date of service: 06/30/2018 PROCEDURE: CT Abdomen and Pelvis without intravenous contrast HISTORY: peg dysfunction eval peg tube COMPARISON: None. TECHNIQUE: Without contrast.. Contrast dose: Radiation dose: Total exam DLP = 1033.26 mGy-cm. This CT exam was performed using one or more of the following dose reduction techniques: Automated exposure control, adjustment of the mA and/or kV according to patient size, and/or use of iterative reconstruction technique. FINDINGS: LOWER THORAX: The PEG tube is seen in the lumen of the antrum of the stomach LIVER: Unremarkable. No gross lesion or ductal dilatation. GALLBLADDER AND BILE DUCTS: Unremarkable. PANCREAS: Unremarkable. No gross lesion or ductal dilatation. SPLEEN: Unremarkable. ADRENALS: Unremarkable. No mass. KIDNEYS AND URETERS: Bilateral stones in the renal pelvis. There is a 1 x 2 cm stone in the right renal pelvis. There is a 1.2 cm stone in the left renal pelvis. There is no evidence of hydronephrosis. There is some perinephric stranding which may be due to chronic intermittent obstruction. VASCULATURE: Unremarkable. No aortic aneurysm. Aortic calcification BOWEL: Moderate hiatal hernia PEG tube in the antrum of the stomach APPENDIX: Unremarkable. Normal appendix. PERITONEUM: Unremarkable. No free fluid. No free air. LYMPH NODES: Unremarkable. No enlarged lymph nodes. BLADDER: Unremarkable. REPRODUCTIVE: Calcified fibroids BONES: No acute fracture. OTHER FINDINGS: None. IMPRESSION: PEG tube in the antrum of the stomach
[2018-06-30] MEDS ORDERED: Influenza Vaccine 60 mcg/0.5 mL SYR (4YR UP) IM ONE (20:52)
[2018-06-30] MEDS ORDERED: Pneumococcal 23-Valent Vaccine IM ONE (20:52)
--- NOTE | 2018-07-01 01:43 | HP ---
DATE OF EXAM: 06/30/2018 HISTORY OF PRESENT ILLNESS: She was in the hospital about a week ago for a PEG tube site oozing and infection and was on IV antibiotics, the family requested for a feeding tube change, they felt that it was not working well and the GI doctor at the time would not do it. They went home, she was on oral antibiotics, and now they have brought her back, they want the feeding tube changed, having a hard time with it. She is an 83-year-old female who presents with old stroke, bedridden, contracted, nonverbal with the feeding tube. The family want a change in the feeding tube. She has hypertension, CVA, completely bedridden, fell from a fall, contracted upper and lower extremities. She can look at you and she understands. She is incontinent of everything. They want a feeding tube change. SOCIAL HISTORY: Nonsmoker. Nondrinker. No drugs. ALLERGIES: NO KNOWN DRUG ALLERGIES. MEDICATIONS: She takes Norvasc, Lopressor, Nexium, Flexeril, Keflex, aspirin, and other than that she gets feedings through the PEG tube. REVIEW OF SYSTEMS: Cannot do review of systems because she is nonverbal. She looks at you and she is back to her baseline. PHYSICAL EXAMINATION: VITAL SIGNS: She has a 98.3 temp, 76 pulse, 18 respiratory rate, 116/71 blood pressure, and 100% O2 sat. GENERAL: She looks at me and that is her baseline, well-appearing, nontoxic, and comfortable. HEENT: Head is atraumatic and normocephalic. Extraocular muscles are intact. Pupils equally reactive to light. Throat is moist. NECK: Supple. Thyroid midline. No palpable appreciable lymphadenopathy. HEART: Regular rate. Normal S1 and S2. LUNGS: Decreased breath sounds. Poor inspiration, but clear to auscultation. No wheezes, rhonchi, or rales. ABDOMEN: Soft and nontender. Positive bowel sounds. Mild crusting around the PEG tube. No liquid drainage at this time. PEG tube could be changed. EXTREMITIES: They have contraction and no edema. SKIN: Warm and dry. Poor turgor. NEUROLOGIC: She is alert, eyes are open, and that is her baseline. LABORATORY DATA: Labs are pending, but they are ordered. ASSESSMENT AND PLAN: I will put her back on her regular medications. She will have consults with Gastroenterology and Infectious Disease. Continue with the Keflex. I am hoping in the next 24 hours we can get her to a percutaneous endoscopic gastrostomy tube change. Infectious Disease is consulted too. We changed the treatment as per the labs when they come back. Domenic Dunne DO
[2018-07-01 08:38] LABS: HEMOGLOBIN 12.6 g/dL (12.0-16.0); MEAN CELL VOLUME 91.3 fl (80.0-105.0); MEAN CORPUSCULAR HEMOGLOBIN 29.8 pg (25.0-35.0); MEAN CORPUSCULAR HGB CONC 32.6 g/dl (31.0-37.0); MEAN PLATELET VOLUME 10.1 fl (7.0-11.0); RBC 4.23 10^6/uL (3.5-6.1); RED CELL DISTRIBUTION WIDTH 15.5 % (11.5-14.5); WHITE BLOOD COUNT 9.4 10^3/uL (4.5-11.0)
[2018-07-01 09:03] LABS: ALBUMIN 3.5 g/dL (3.0-4.8); ALT/SGPT 17 U/L (7-56); AST/SGOT 24 U/L (14-36); BLOOD UREA NITROGEN 14 mg/dL (7-21); CALCIUM 9.2 mg/dL (8.4-10.5); GFR NON-AFRICAN AMERICAN > 60
[2018-07-01] MEDS: Vancomycin 1gm in NS 250ml 1 GM/250 ML BAG IVPB SCH ×2 (09:15→20:32)
--- NOTE | 2018-07-01 09:24 | PN ---
DATE: 07/01/2018 SUBJECTIVE: She is here for a feeding tube change as per family's request and wishes. They were very upset when she was here a week ago and they would not change the feeding tube. They brought her back to the emergency room. PHYSICAL EXAMINATION VITAL SIGNS: She has a 99.2 temperature, 95 pulse, 138/80 blood pressure, 18 respiratory rate, and 94% O2 sat on room air. HEAD: Atraumatic, normocephalic. HEART: Regular rate. LUNGS: Decreased breath sounds. ABDOMEN: Soft, nontender. EXTREMITIES: Contracted. No edema. LABORATORY DATA: She has a 9.4 white count, 13 hemoglobin, 40.2 hematocrit with a 381 platelets. A 137 sodium, potassium 5, BUN is 17, creatinine 0.4, GFR is greater than 60, sugar is 88, calcium is 9.3. AST is 36, ALT is 26, alk phos 117. MEDICATIONS: She is on aspirin, Flexeril, Lopressor, Maxipime, Norvasc, Protonix and vancomycin. ASSESSMENT AND PLAN: She is being seen by Dr. Cross, hoping to do the percutaneous endoscopic gastrostomy tube change today. She had a CT scan of the abdomen and pelvis showing the percutaneous endoscopic gastrostomy tube in the anterior limb of the stomach and nothing else. So she is being on antibiotics as per Infectious Disease and I am hoping they could do the percutaneous endoscopic gastrostomy tube change today. She is n.p.o. and then get her home. This is a progress note on Bonny Ott who has end-stage cerebrovascular accident with a feeding tube and they need a percutaneous endoscopic gastrostomy tube change. Domenic Dunne DO
--- NOTE | 2018-07-01 09:26 | CP.PCM.PN ---
<Lolita Carpio - Last Filed: 07/01/18 13:51> Subjective - Date & Time of Evaluation Date of Evaluation: 07/01/18 Time of Evaluation: 09:22 - Subjective Subjective: Gastroenterology Fellow/PGY6 Progress Note Patient resting comfortably. Nursing denies acute events overnight. No bowel movement yesterday. Unable to complete review of systems as patient is nonverbal with history of CVA. Objective - Vital Signs/Intake and Output Vital Signs (last 24 hours): Temp Pulse Resp BP Pulse Ox 99.2 F 95 H 18 138/80 94 L 07/01/18 06:00 07/01/18 09:17 07/01/18 06:00 07/01/18 09:17 07/01/18 06:00 Intake and Output: 07/01/18 07/01/18 06:59 18:59 Output Total 750 Balance -750 - Medications Medications: Current Medications Amlodipine Besylate (Norvasc) 10 mg PEG DAILY [facility] Last Admin: 07/01/18 09:17 Dose: 10 mg Aspirin (Aspirin Chewable) 81 mg PEG DAILY [facility] Last Admin: 07/01/18 09:18 Dose: 81 mg Cyclobenzaprine HCl (Flexeril) 10 mg PEG HS [facility] Last Admin: 06/30/18 21:58 Dose: 10 mg Cefepime HCl (Maxipime 1gm) 1 gm in 100 mls @ 100 mls/hr IVPB Q8 [facility]; Protocol Stop: 07/08/18 14:01 Vancomycin HCl (Vancomycin 1gm) 1 gm in 250 mls @ 167 mls/hr IVPB Q12H [facility]; Protocol Stop: 07/08/18 07:16 Last Admin: 07/01/18 09:15 Dose: 167 mls/hr Metoprolol Tartrate (Lopressor) 25 mg PO BID [facility] Last Admin: 07/01/18 09:17 Dose: 25 mg Pantoprazole Sodium (Protonix Ec Tab) 40 mg PO DAILY [facility] Last Admin: 07/01/18 09:17 Dose: 40 mg - Labs Labs: 07/01/18 08:20 07/01/18 08:20 PT 11.8 SECONDS (9.4-12.5) 06/30/18 14:43 INR 1.06 06/30/18 14:43 APTT 32.2 Seconds (26.9-38.3) 06/30/18 14:43 - Constitutional Appears: Non-toxic, No Acute Distress - Head Exam Head Exam: ATRAUMATIC, NORMOCEPHALIC - Eye Exam Eye Exam: PERRL. absent: Scleral icterus Pupil Exam: PERRL. absent: Miosis, Mydriatic - ENT Exam ENT Exam: Mucous Membranes Dry - Neck Exam Neck Exam: Full ROM, Normal Inspection - Respiratory Exam Respiratory Exam: Clear to Ausculation Bilateral. absent: Rales, Rhonchi, Wheezes - Cardiovascular Exam Cardiovascular Exam: RRR, +S1, +S2. absent: Gallop, Rubs - GI/Abdominal Exam GI & Abdominal Exam: Soft, Normal Bowel Sounds. absent: Distended, Firm, Guarding, Rigid, Tenderness, Organomegaly Additional comments: PEG site LUQ C/D/I, granulation tissue present, no drainage noted - Extremities Exam Additional comments: chronic flexion contractures - Neurological Exam Neurological Exam: Awake - Psychiatric Exam Additional comments: unable to assess- nonverbal - Skin Skin Exam: Dry, Intact, Normal Color, Warm Assessment and Plan - Assessment and Plan (Free Text) Assessment: 83 year old female with PMH of PEG placement 04/26 CVA 2014 (non-verbal, bed=bound), HTN, chronic sacral decubitus ulcers, and oral thrush presenting for evaluation of discharge at PEG site. Recent discharge 06/24/18 for E. coli/E. faecalis UTI and PEG tube drainage with concern for PEG site wound infection. Plan: -CT A/P- PEG in good position, no signs of fluid collection or other intra- abdominal pathology -follow up Infectious disease (ID) recommendations on possible colonization versus infected PEG site -currently NPO, provide water flushes and tube feeds as tolerated -further recommendations from Dr. Cross on PEG exchange after ID evaluation -will follow clinical course <Sameer Cross V - Last Filed: 07/02/18 00:33> Objective - Vital Signs/Intake and Output Vital Signs (last 24 hours): Temp Pulse Resp BP Pulse Ox 98.8 F 67 18 127/78 99 07/01/18 22:07 07/01/18 22:07 07/01/18 22:07 07/01/18 22:07 07/01/18 22:07 - Medications Medications: Current Medications Amlodipine Besylate (Norvasc) 10 mg PEG DAILY [facility] Last Admin: 07/01/18 09:17 Dose: 10 mg Aspirin (Aspirin Chewable) 81 mg PEG DAILY [facility] Last Admin: 07/01/18 09:18 Dose: 81 mg Cyclobenzaprine HCl (Flexeril) 10 mg PEG HS [facility] Last Admin: 07/01/18 22:13 Dose: 10 mg Cefepime HCl (Maxipime 1gm) 1 gm in 100 mls @ 100 mls/hr IVPB Q8 [facility]; Protocol Stop: 07/08/18 14:01 Last Admin: 07/01/18 22:14 Dose: 100 mls/hr Vancomycin HCl (Vancomycin 1gm) 1 gm in 250 mls @ 167 mls/hr IVPB Q12H [facility]; Protocol Stop: 07/08/18 07:16 Last Admin: 07/01/18 20:32 Dose: 167 mls/hr Metoprolol Tartrate (Lopressor) 25 mg PO BID [facility] Last Admin: 07/01/18 17:34 Dose: 25 mg Pantoprazole Sodium (Protonix Ec Tab) 40 mg PO DAILY [facility] Last Admin: 07/01/18 09:17 Dose: 40 mg - Labs Labs: 07/01/18 08:20 07/01/18 08:20 PT 12.7 SECONDS (9.4-12.5) H 07/01/18 06:00 INR 1.12 07/01/18 06:00 APTT 32.2 Seconds (26.9-38.3) 06/30/18 14:43 Attending/Attestation - Attestation I have personally seen and examined this patient.: Yes I have fully participated in the care of the patient.: Yes I have reviewed all pertinent clinical information, including history, physical exam and plan: Yes Notes (Text): This is an addendum to the GI progress report dictated by the GI fellow. I do note was reviewed patient does have granulation tissue at the PICC site with some discharge the bacterial culture probably due to colonization rather than infection. Would replace the G-tube feeding tube and discussed with the patient's family 07/02/18 00:28
[2018-07-01 09:36] LABS: INR 1.12; PROTHROMBIN TIME 12.7 SECONDS (9.4-12.5)
[2018-07-01] MEDS ORDERED: Pantoprazole 40 mg EC Tab PO SCH (10:00)
[2018-07-01] MEDS: Cefepime 1gm in NS 100ml 1 GM/100 ML BAG IVPB SCH ×2 (15:13→22:14)
--- NOTE | 2018-07-01 18:07 | CP.PCM.PN ---
<Lolita Carpio - Last Filed: 07/01/18 18:04> Subjective - Date & Time of Evaluation Date of Evaluation: 07/01/18 Time of Evaluation: 18:04 - Subjective Subjective: Gastroenterology Fellow/PGY6 Progress Note for PEG exchange Bedside PEG exchange performed with removal of prior Balloon gastrostomy tube and placement of a 20French Balloon gastrostomy tube. Proper aspiration of fluid received. Dressing in place. Tube feeds initiated. Dietitian consult ordered for final tube feed recommendations. Okay to use gastrostomy tube for medication administration. Estimated Blood Loss- none Objective - Vital Signs/Intake and Output Vital Signs (last 24 hours): Temp Pulse Resp BP Pulse Ox 98.6 F 78 18 107/56 L 95 07/01/18 14:00 07/01/18 17:37 07/01/18 14:00 07/01/18 17:37 07/01/18 14:00 Intake and Output: 07/01/18 07/01/18 06:59 18:59 Output Total 750 Balance -750 - Medications Medications: Current Medications Amlodipine Besylate (Norvasc) 10 mg PEG DAILY [facility] Last Admin: 07/01/18 09:17 Dose: 10 mg Aspirin (Aspirin Chewable) 81 mg PEG DAILY [facility] Last Admin: 07/01/18 09:18 Dose: 81 mg Cyclobenzaprine HCl (Flexeril) 10 mg PEG HS [facility] Last Admin: 06/30/18 21:58 Dose: 10 mg Cefepime HCl (Maxipime 1gm) 1 gm in 100 mls @ 100 mls/hr IVPB Q8 [facility]; Protocol Stop: 07/08/18 14:01 Last Admin: 07/01/18 15:13 Dose: 100 mls/hr Vancomycin HCl (Vancomycin 1gm) 1 gm in 250 mls @ 167 mls/hr IVPB Q12H [facility]; Protocol Stop: 07/08/18 07:16 Last Admin: 07/01/18 09:15 Dose: 167 mls/hr Metoprolol Tartrate (Lopressor) 25 mg PO BID [facility] Last Admin: 07/01/18 17:34 Dose: 25 mg Pantoprazole Sodium (Protonix Ec Tab) 40 mg PO DAILY [facility] Last Admin: 07/01/18 09:17 Dose: 40 mg - Labs Labs: 07/01/18 08:20 07/01/18 08:20 PT 12.7 SECONDS (9.4-12.5) H 07/01/18 06:00 INR 1.12 07/01/18 06:00 APTT 32.2 Seconds (26.9-38.3) 06/30/18 14:43 <Sameer Cross V - Last Filed: 07/02/18 00:27> Objective - Vital Signs/Intake and Output Vital Signs (last 24 hours): Temp Pulse Resp BP Pulse Ox 98.8 F 67 18 127/78 99 07/01/18 22:07 07/01/18 22:07 07/01/18 22:07 07/01/18 22:07 07/01/18 22:07 - Medications Medications: Current Medications Amlodipine Besylate (Norvasc) 10 mg PEG DAILY [facility] Last Admin: 07/01/18 09:17 Dose: 10 mg Aspirin (Aspirin Chewable) 81 mg PEG DAILY [facility] Last Admin: 07/01/18 09:18 Dose: 81 mg Cyclobenzaprine HCl (Flexeril) 10 mg PEG HS [facility] Last Admin: 07/01/18 22:13 Dose: 10 mg Cefepime HCl (Maxipime 1gm) 1 gm in 100 mls @ 100 mls/hr IVPB Q8 [facility]; Protocol Stop: 07/08/18 14:01 Last Admin: 07/01/18 22:14 Dose: 100 mls/hr Vancomycin HCl (Vancomycin 1gm) 1 gm in 250 mls @ 167 mls/hr IVPB Q12H [facility]; Protocol Stop: 07/08/18 07:16 Last Admin: 07/01/18 20:32 Dose: 167 mls/hr Metoprolol Tartrate (Lopressor) 25 mg PO BID [facility] Last Admin: 07/01/18 17:34 Dose: 25 mg Pantoprazole Sodium (Protonix Ec Tab) 40 mg PO DAILY [facility] Last Admin: 07/01/18 09:17 Dose: 40 mg - Labs Labs: 07/01/18 08:20 07/01/18 08:20 PT 12.7 SECONDS (9.4-12.5) H 07/01/18 06:00 INR 1.12 07/01/18 06:00 APTT 32.2 Seconds (26.9-38.3) 06/30/18 14:43 Attending/Attestation - Attestation I have personally seen and examined this patient.: Yes I have fully participated in the care of the patient.: Yes I have reviewed all pertinent clinical information, including history, physical exam and plan: Yes Notes (Text): PEG tube was replaced in good position. The PICC site appears to have good amount of granulation tissue. Can start using the feeding tube Discussed with the patient's family 07/02/18 00:22
--- NOTE | 2018-07-01 20:24 | CON ---
DATE OF CONSULTATION: 07/01/2018 CHIEF COMPLAINT: Weakness times several days. HISTORY OF PRESENT ILLNESS: This is an 83-year-old female with past medical history significant for hypertension, cerebrovascular accident, aphagia, the patient has a PEG tube. The patient was admitted through the emergency room for change of the PEG tube. The patient does not verbalize. Information is gathered from the chart and Dr. Domenic Dunne's history and physical examination. In the emergency room, Dr. Bhupinder Steve states that the patient has CVA, hypertension, aphagia, PEG tube, nonverbal, for evaluation of the PEG tube, and there have been no fevers, no chills, no nausea, no vomiting, no chest pain, and however, the patient does not communicate. REVIEW OF SYSTEMS: Twelve-point review of systems is performed. PAST MEDICAL HISTORY: Significant for hypertension, cerebrovascular accident, aphagia, and history of MRSA. PAST SURGICAL HISTORY: Significant for PEG tube placement. ALLERGIES: THE PATIENT HAS NO KNOWN ALLERGIES. MEDICATIONS: Medications at home include the amlodipine, metoprolol, Nexium, and Flexeril, and the patient is on aspirin. PHYSICAL EXAMINATION: GENERAL: The patient is in bed, in no acute distress, nontoxic. VITAL SIGNS: Temperature of 99.2, heart rate of 95, blood pressure 117/70, respiratory rate of 18. HEENT: Examination of HEENT is unremarkable. NECK: Supple. LUNGS: Have decreased breath sounds. HEART: Normal S1, S2. ABDOMEN: Soft, nontender. Examination of the PEG reveals no evidence of infection, appears clean, no discharge, essentially unremarkable PEG tube. LABORATORY DATA: Laboratory examination reveals a white count of 9.4, hemoglobin of 13, platelets of 381. Chemistries reveal a BUN of 17, creatinine of 0.7, and the patient has had a PEG site infection in the past, it is last month, with sensitive Klebsiella and sensitive staph aureus, and prior to that, the patient has had a urinary tract infection with E. Coli and Enterococcus. Dr. Carpio's progress note is reviewed. CT scan of the abdomen and pelvis is reviewed. ASSESSMENT AND PLAN: An 83-year-old female with a questionable malfunctioning PEG tube, which was discharged at home, no discharge is seen here. I have empirically started the patient on vancomycin and cefepime at this time, but there seems to be no evidence of any infection, although another wound culture was sent. Apparently, there was some minimal discharge earlier as per by nursing staff, it was discussed with Dr. Domenic Dunne. Rafael Jefferson MD
[2018-07-02] MEDS: Cefepime 1gm in NS 100ml 1 GM/100 ML BAG IVPB SCH (06:50)
[2018-07-02 07:03] LABS: HEMOGLOBIN 12.4 g/dL (12.0-16.0); MEAN CELL VOLUME 91.3 fl (80.0-105.0); MEAN CORPUSCULAR HEMOGLOBIN 29.3 pg (25.0-35.0); MEAN CORPUSCULAR HGB CONC 32.1 g/dl (31.0-37.0); RBC 4.23 10^6/uL (3.5-6.1); RED CELL DISTRIBUTION WIDTH 15.5 % (11.5-14.5); WHITE BLOOD COUNT 7.3 10^3/uL (4.5-11.0)
[2018-07-02 07:25] LABS: ALBUMIN 3.4 g/dL (3.0-4.8); ALT/SGPT 19 U/L (7-56); AST/SGOT 22 U/L (14-36); BLOOD UREA NITROGEN 11 mg/dL (7-21); CALCIUM 9.1 mg/dL (8.4-10.5); GFR NON-AFRICAN AMERICAN > 60
[2018-07-02 07:33] VITALS: PULSE 82; RESP 20; TEMP 98.9; O2SAT 96
[2018-07-02] MEDS: Vancomycin 1gm in NS 250ml 1 GM/250 ML BAG IVPB SCH (08:32)
[2018-07-02 11:14] VITALS: BP 126/58
--- NOTE | 2018-07-02 16:34 | PN ---
DATE: 07/02/2018 SUBJECTIVE: The patient is in bed, in no acute distress, nontoxic. No fevers, no chills. No nausea or vomiting. PHYSICAL EXAMINATION: GENERAL: Temperature is 98, blood pressure is 120/60, and respiratory rate of 20. HEENT: Unremarkable. NECK: Supple. LUNGS: Have decreased breath sounds. HEART: Normal S1 and S2. ABDOMEN: Soft. LABORATORY EXAMINATION: Reveals a white count of 7.8, hemoglobin of 12, and platelets of 359. Chemistries are noted and BUN of 11, creatinine of 0.3. Microbiology is gram-positive cocci and gram-negative olive. ASSESSMENT AND PLAN: This is an 83-year-old female with questionable malfunctioning percutaneous endoscopic gastrostomy tube placement. The patient is for replacement of the percutaneous endoscopic gastrostomy tube. Antibiotics may just can be discontinued after the procedure is done and no further antibiotics. The site looks clean. Case discussed with Dr. Dunne. Rafael Jefferson MD
--- NOTE | 2018-07-03 03:37 | DS ---
HOSPITAL COURSE: She was in the hospital for a feeding tube change. She is on aspirin, Flexeril, Lopressor, Norvasc, Protonix. She is not getting more medications anymore as far as antibiotics are concerned. I discussed that with the Infectious Disease doctor, , tube was changed, feeding is already started, I am discharging her home today. She is alert, she likes that idea, she kind of smiled at me when I told her she was going home. PHYSICAL EXAMINATION: GENERAL: She has 98.9 temperature, 82 pulse, 133/75 blood pressure, 20 respiratory rate, and 96% O2 sat on room air. HEENT: Head is atraumatic, normocephalic. HEART: Regular rate. LUNGS: Decreased breath sounds. ABDOMEN: Soft. Positive bowel sounds. EXTREMITIES: No edema. LABORATORY DATA: She has a 7.3 white count, 12.4 hemoglobin, 38.6 hematocrit with 259 platelets. She has 139 sodium, potassium 4.1, BUN 11, creatinine 0.3, GFR is greater than 60, sugar is 106, calcium is 9.1, total bili is 0.9. AST is 22, ALT is 19, alk phos 104, total protein is 7. ASSESSMENT AND PLAN: She will be discharged home today. I will see her on her house calls. Continue with the same medications she came in on. She had a percutaneous endoscopic gastrostomy tube change, she was on observation. Domenic Dunne DO MTDD
== END 2018-07-02 19:33 | disposition home health service (06) ==
LOC: ED 11:13 → ERH 16:04 → 5RNO 18:59
PROVIDERS: ADMIT Family Medicine; ATTEND Family Medicine
DX: K94.23 Gastrostomy malfunction (principal); I10 Essential (primary) hypertension; R13.0 Aphagia; Z86.73 Personal history of transient ischemic attack (TIA), and cerebral infarction without residual deficits; Z74.01 Bed confinement status; Z86.14 Personal history of Methicillin resistant Staphylococcus aureus infection
CPT/HCPCS: 36415; 43762; 74176; 80053; 85025; 85027; 85610; 85730; 87040; 87070; 99285; G0378; J0692

== ENCOUNTER 2018-08-09 10:11 | Inpatient (IN) | payer MEDICARE ==
--- NOTE | 2018-08-09 10:46 | ED PDOC ---
Arrival/HPI - General Chief Complaint: GI Problem Time Seen by Provider: 08/09/18 10:43 - History of Present Illness Narrative History of Present Illness (Text): 08/09/18 10:47 Patient is an 83 yo AA bedridden, nonverbal female with history of CVA, HTN, r ecurrent UTIs via Fish, sacral ulcer, and recurrent PEG tube infections who presents for bloody cloudy urine output and pus around her feeding tube site. Homemaker is at bedside who provides the history. Homemaker states that patient had both Fish and PEG tube changed about 1 month ago when patient was hospitalized for infection. Homemaker has been placing gentamicin cream on the PEG tube as instructed. She has been using it for meds and feeds. She noticed pus coming out yesterday. Additionally, she noticed bloody cloudy urine output yesterday. Denies fevers. Denies diarrhea. She reports patient's sacral ulcer is healing with some surrounding skin irritation. Time/Duration: 24 hours Past Medical History - Provider Review Nursing Documentation Reviewed: Yes Primary Care Provider: Domenic Dunne - Infectious Disease Hx of Infectious Diseases: MRSA - Reproductive Menopause: Yes - Cardiac Hx Cardiac Disorders: Yes Hx Hypertension: Yes - Pulmonary Hx Respiratory Disorders: No - Neurological HX Cerebrovascular Accident: Yes - HEENT Hx HEENT Disorder: No - Renal Hx Renal Disorder: No - Endocrine/Metabolic Hx Endocrine Disorders: No - Hematological/Oncological Hx Blood Disorders: No - Integumentary Hx Dermatological Disorder: No - Musculoskeletal/Rheumatological Hx Falls: Yes Other/Comment: contracted upper and lower extremities. non verbal - Gastrointestinal Hx Gastrointestinal Disorders: No - Genitourinary/Gynecological Hx Incontinence: Yes - Psychiatric Hx Psychophysiologic Disorder: No Hx Substance Use: No - Surgical History Other/Comment: FEEDING TUBE - Anesthesia Hx Anesthesia: Yes Hx Anesthesia Reactions: No Hx Malignant Hyperthermia: No Family/Social History - Physician Review Nursing Documentation Reviewed: Yes Family/Social History: Unknown Family HX Smoking Status: Unknown If Ever Smoked Hx Alcohol Use: No Hx Substance Use: No Allergies/Home Meds Allergies/Adverse Reactions: Allergies No Known Allergies Allergy (Verified 01/07/18 19:39) Home Medications: Home Meds Medication Instructions Recorded Confirmed Cranberry Fruit Extract/Vit C [Azo 1 each PO DAILY 08/09/18 08/09/18 Cranberry Softgel] Gel Base No.41 [Hydrogel] 1 gel NA 08/09/18 Gentamicin 0.1% 15 applic TOP 08/09/18 Nystatin [Nystatin Oral Susp] 100,000 unit PO 08/09/18 [place] Hn Oral 237 ml PEG TID 08/09/18 08/09/18 Review of Systems - Review of Systems Systems not reviewed;Unavailable: Other (nonverbal) Physical Exam Vital Signs Reviewed: Yes Temperature: Afebrile Blood Pressure: Normal Pulse: Regular Respiratory Rate: Normal Appearance: Positive for: Comfortable Pain Distress: None Mental Status: Positive for: other (nonverbal, sleeping) - Systems Exam Head: Present: Atraumatic, Normocephalic Pupils: Present: PERRL Mouth: Present: Moist Mucous Membranes Respiratory/Chest: Present: Clear to Auscultation, Good Air Exchange Cardiovascular: Present: Regular Rate and Rhythm, Normal S1, S2 Abdomen: Present: Ostomy Tubes (PEG tube- purulent discharge). No: Distention Genitourinary/Pelvic Exam: Present: Odor, Other (Fish balloon outside of urethra, cloudy bloody urine output). No: Vaginal Discharge Upper Extremity: Present: Other (contracted) Lower Extremity: Present: Other (constracted) Neurological: Present: Other (bedbound, nonverbal) Skin: Present: Warm, Dry, Normal Color Lymphatic: No: Cervical Adenopathy, Inguinal Adenopathy Psychiatric: Present: Other (nonverbal). No: Agitated Medical Decision Making ED Course and Treatment: 08/09/18 10:41 Remove Fish 08/09/18 11:[address] Dunne who accepts patient for admission. Requested consults for ID, Uro, Surg. Re-evaluation Time: 12:19 Reassessment Condition: Unchanged - Lab Interpretations Lab Results: 08/09/18 11:30 08/09/18 11:30 Lab Results 08/09/18 11:30: Sodium 136, Potassium 4.8, Chloride 102, Carbon Dioxide 23, Anion Gap 16, BUN 22 H, Creatinine 0.3 L, Est GFR ( Amer) > 60, Est GFR (Non-Af Amer) > 60, Random Glucose 92, Calcium 9.3, Total Bilirubin 0.9, AST 48 H D, ALT 31, Alkaline Phosphatase 99, Total Protein 8.0, Albumin 3.9, Globulin 4.1, Albumin/Globulin Ratio 1.0 L 08/09/18 11:30: PT 12.3, INR 1.09, APTT 30.5 08/09/18 11:30: WBC 8.9 D, RBC 4.92, Hgb 14.7 D, Hct 44.7, MCV 90.9, MCH 29.9, MCHC 32.9, RDW 14.8 H, Plt Count 224, MPV 11.7 H, Neut % (Auto) 79.7 H, Lymph % (Auto) 12.3 L, [place] % (Auto) 5.5, Eos % (Auto) 2.3, Baso % (Auto) 0.2, Lymph # (Auto) 1.1 L, [place] # (Auto) 0.5, Eos # (Auto) 0.2, Baso # (Auto) 0.02, Absolute Neuts (auto) 7.05 H I have reviewed the lab results: Yes Interpretation: No clinic. lab abnormalty - Medication Orders Current Medication Orders: 08/09/18 11:38 Cefepime HCl (Maxipime 1gm) 1 gm in 100 mls @ 100 mls/hr IVPB STAT STA; Protocol Stop: 08/09/18 12:19 Last Admin: 08/09/18 11:34 Dose: 100 mls/hr eMAR Start Stop Document 08/09/18 11:34 LA (Rec: 08/09/18 11:35 LA [id number]) Intravenous Solution Start Date 08/09/18 Start Time 11:35 End Date 08/09/18 End time 12:35 Total Infusion Time 60 Disposition/Present on Arrival - Present on Arrival Any Indicators Present on Arrival: Yes History of DVT/PE: No History of Uncontrolled Diabetes: No Urinary Catheter: No History of Decub. Ulcer: Yes (rt upper back, sacral area) History Surgical Site Infection Following: None - Disposition Have Diagnosis and Disposition been Completed?: Yes Diagnosis: UTI (urinary tract infection), Skin infection at gastrostomy tube site Disposition: HOSPITALIZED Disposition Time: 12:19 Patient Plan: Admission Patient Problems: Current Active Problems Problem Status Onset Skin infection at gastrostomy tube site Acute UTI (urinary tract infection) Acute Condition: GUARDED Forms: [employer] (Montenegrin)
[2018-08-09] MEDS ORDERED: Cefepime 1gm in NS 100ml 1 GM/100 ML BAG IVPB STA (11:20)
[2018-08-09 12:01] LABS: ALBUMIN 3.9 g/dL (3.0-4.8); BLOOD UREA NITROGEN 22 mg/dL (7-21); CALCIUM 9.3 mg/dL (8.4-10.5); GFR NON-AFRICAN AMERICAN > 60
[2018-08-09 12:09] LABS: BASO # 0.02 K/mm3 (0.0-2.0); BASO % 0.2 % (0.0-3.0); EOS # 0.2 (0.0-0.7); EOS % 2.3 % (1.5-5.0); HEMOGLOBIN 14.7 g/dL (12.0-16.0); INR 1.09; LYMPH # 1.1 (1.2-3.4); LYMPH % 12.3 % (22.0-35.0); MEAN CELL VOLUME 90.9 fl (80.0-105.0); MEAN CORPUSCULAR HEMOGLOBIN 29.9 pg (25.0-35.0); MEAN CORPUSCULAR HGB CONC 32.9 g/dl (31.0-37.0); MEAN PLATELET VOLUME 11.7 fl (7.0-11.0); MONO # 0.5 (0.1-0.6); MONO % 5.5 % (1.0-6.0); PARTIAL THROMBOPLASTIN TIME 30.5 Seconds (26.9-38.3); PROTHROMBIN TIME 12.3 SECONDS (9.4-12.5); RBC 4.92 10^6/uL (3.5-6.1); RED CELL DISTRIBUTION WIDTH 14.8 % (11.5-14.5); WHITE BLOOD COUNT 8.9 10^3/uL (4.5-11.0)
[2018-08-09 12:12] LABS: ALT/SGPT 31 U/L (7-56); AST/SGOT 48 U/L (14-36)
[2018-08-09 12:25] LABS: PH,URINE 6.5 (4.7-8.0); URINE BILIRUBIN NEGATIVE (NEGATIVE); URINE BLOOD MODERATE (NEGATIVE); URINE GLUCOSE (UA) NEGATIVE (NEGATIVE); URINE LEUKOCYTE ESTERASE LARGE Leu/uL (NEGATIVE); URINE PROTEIN 100 mg/dL (<30 mg/dL)
[2018-08-09 12:26] LABS: URINE APPEARANCE CLOUDY (CLEAR); URINE COLOR YELLOW (YELLOW)
[2018-08-09 12:41] LABS: URINE BACTERIA LARGE /hpf; URINE EPITHELIAL CELLS 0 - 2 /hpf (0-5); URINE RBC 0 - 2 /hpf (0-2); URINE WBC TNTC /hpf (0-6)
--- NOTE | 2018-08-09 18:14 | CP.PCM.CON ---
History of Present Illness - History of Present Illness History of Present Illness: General Surgery Consult Re: Sacral ulcer HPI: 83F presents for bloody, cloudy urine output and pus around her feeding tube site. Pt is bedridden and nonverbal. Information taken from Hospital records. Pt had both Fish and PEG tube changed about 1 month ago when patient was hospitalized for infection. Homemaker has been placing gentamicin cream on the PEG tube as instructed. She has been using it for meds and feeds. She noticed pus coming out around the PEG tube and bloody, cloudy urine output yesterday. Homemaker denied fevers, diarrhea. She reports patient's sacral ulcer is healing with some surrounding skin irritation. PMH: nonverbal, Hx of CVA, HTN, recurrent UTIs via Fish, sacral ulcer, recurrent PEG tube infections PSH: PEG tube SH: Unknown FH: noncontributory All: NKDA Meds: See MAR Review of Systems - Review of Systems Systems not reviewed;Unavailable: Other (nonverbal due to Hx CVA) Past Patient History - Infectious Disease Hx of Infectious Diseases: MRSA - Past Social History Smoking Status: Unknown If Ever Smoked - CARDIAC Hx Cardiac Disorders: Yes Hx Hypertension: Yes - PULMONARY Hx Respiratory Disorders: No - NEUROLOGICAL HX Cerebrovascular Accident: Yes - HEENT Hx HEENT Problems: No - RENAL Hx Chronic Kidney Disease: No - ENDOCRINE/METABOLIC Hx Endocrine Disorders: No - HEMATOLOGICAL/ONCOLOGICAL Hx Blood Disorders: No - INTEGUMENTARY Hx Dermatological Problems: No - MUSCULOSKELETAL/RHEUMATOLOGICAL Hx Falls: Yes Other/Comment: contracted upper and lower extremities. non verbal - GASTROINTESTINAL Hx Gastrointestinal Disorders: No - GENITOURINARY/GYNECOLOGICAL Hx Incontinence: Yes - PSYCHIATRIC Hx Psychophysiologic Disorder: No Hx Substance Use: No - SURGICAL HISTORY Other/Comment: FEEDING TUBE - ANESTHESIA Hx Anesthesia: Yes Hx Anesthesia Reactions: No Hx Malignant Hyperthermia: No Meds Allergies/Adverse Reactions: Allergies Allergy/AdvReac Type Severity Reaction Status Date / Time No Known Allergies Allergy Verified 01/07/18 19:39 - Medications Medications: Current Medications Amlodipine Besylate (Norvasc) 10 mg PEG DAILY ANTHONY Aspirin (Aspirin Chewable) 81 mg PEG DAILY ANTHONY Cyclobenzaprine HCl (Flexeril) 10 mg PEG HS ANTHONY Sodium Chloride (Sodium Chloride 0.45%) 1,000 mls @ 60 mls/hr IV .[id number] ANTHONY Cefepime HCl (Maxipime 1gm) 1 gm in 100 mls @ 100 mls/hr IVPB Q8 ANTHONY; Protocol Metoprolol Tartrate (Lopressor) 25 mg PO BID ANTHONY Pantoprazole Sodium (Protonix Inj) 40 mg IVP DAILY [facility] Physical Exam - Constitutional Appears: Non-toxic, No Acute Distress - Head Exam Head Exam: ATRAUMATIC, NORMOCEPHALIC - Eye Exam Eye Exam: EOMI. absent: Scleral icterus - Respiratory Exam Respiratory Exam: NORMAL BREATHING PATTERN. absent: Respiratory Distress - GI/Abdominal Exam GI & Abdominal Exam: Soft. absent: Distended, Tenderness - Extremities Exam Extremities exam: Negative for: calf tenderness Additional comments: contracted extremities - Back Exam Back exam: absent: CVA tenderness (L), CVA tenderness (R) Additional comments: Well healing sacral ulcer. Skin tears on upper mid back - Neurological Exam Neurological exam: Altered (Hx CVA) - Skin Skin Exam: Dry, Warm Results - Vital Signs Recent Vital Signs: Last Vital Signs Temp 98.1 F 08/09/18 12:20 Pulse 81 08/09/18 14:09 Resp 18 08/09/18 14:09 BP 114/69 08/09/18 14:09 Pulse Ox 96 08/09/18 14:09 - Labs Result Diagrams: 08/09/18 11:30 08/09/18 11:30 Labs: Laboratory Results - last 24 hr 08/09/18 08/09/18 08/09/18 11:30 11:30 11:30 WBC 8.9 D RBC 4.92 Hgb 14.7 D Hct 44.7 MCV 90.9 MCH 29.9 MCHC 32.9 RDW 14.8 H Plt Count 224 MPV 11.7 H Neut % (Auto) 79.7 H Lymph % (Auto) 12.3 L [place] % (Auto) 5.5 Eos % (Auto) 2.3 Baso % (Auto) 0.2 Lymph # (Auto) 1.1 L [place] # (Auto) 0.5 Eos # (Auto) 0.2 Baso # (Auto) 0.02 Absolute Neuts (auto) 7.05 H PT 12.3 INR 1.09 APTT 30.5 Sodium 136 Potassium 4.8 Chloride 102 Carbon Dioxide 23 Anion Gap 16 BUN 22 H Creatinine 0.3 L Est GFR ( Amer) > 60 Est GFR (Non-Af Amer) > 60 Random Glucose 92 Calcium 9.3 Phosphorus Magnesium Total Bilirubin 0.9 AST 48 H D ALT 31 Alkaline Phosphatase 99 Total Protein 8.0 Albumin 3.9 Globulin 4.1 Albumin/Globulin Ratio 1.0 L Urine Color Urine Appearance Urine pH Ur Specific Egan Urine Protein Urine Glucose (UA) Urine Ketones Urine Blood Urine Nitrate Urine Bilirubin Urine Urobilinogen Ur Leukocyte Esterase Urine RBC Urine WBC Ur Epithelial Cells Urine Bacteria 08/09/18 08/09/18 11:30 12:00 WBC RBC Hgb Hct MCV MCH MCHC RDW Plt Count MPV Neut % (Auto) Lymph % (Auto) [place] % (Auto) Eos % (Auto) Baso % (Auto) Lymph # (Auto) [place] # (Auto) Eos # (Auto) Baso # (Auto) Absolute Neuts (auto) PT INR APTT Sodium Potassium Chloride Carbon Dioxide Anion Gap BUN Creatinine Est GFR ( Amer) Est GFR (Non-Af Amer) Random Glucose Calcium Phosphorus 3.5 Magnesium 1.9 Total Bilirubin AST ALT Alkaline Phosphatase Total Protein Albumin Globulin Albumin/Globulin Ratio Urine Color Yellow Urine Appearance Cloudy Urine pH 6.5 Ur Specific Egan 1.015 Urine Protein 100 H Urine Glucose (UA) Negative Urine Ketones Negative Urine Blood Moderate H Urine Nitrate Positive H Urine Bilirubin Negative Urine Urobilinogen 1.0 H Ur Leukocyte Esterase Large H Urine RBC 0 - 2 Urine WBC Tntc H Ur Epithelial Cells 0 - 2 Urine Bacteria Large Assessment & Plan - Assessment and Plan (Free Text) Assessment: 83F with healed sacral ulcer, skin tear on upper back Plan: Air mattress Turn Q2H heel protectors Optifoam dressing to Sacrum Mepilex with nonstick patch for skin tears. Follow up GI recs for PEG tube, consider CT for evaluation for abscess D/W Dr. Shahram Salvador PGY4
[2018-08-09] MEDS: Sodium Chloride 0.45% 1,000 ML IV SCH (18:22)
[2018-08-09 18:49] VITALS: BMI 24.1
[2018-08-09] MEDS ORDERED: Pneumococcal 23-Valent Vaccine IM ONE (18:50)
[2018-08-09] MEDS: Cefepime 1gm in NS 100ml 1 GM/100 ML BAG IVPB SCH (21:27)
--- NOTE | 2018-08-10 02:13 | HP ---
DATE OF EXAM: 08/09/2018 I have been doing house calls on her. HISTORY OF PRESENT ILLNESS: She is an 81-year-old female who is in the hospital for PEG tube infection. She had IV antibiotics. She was sent home and within about a week, the feeding tube area got very pussy and purulent and the urine is cloudy. There is also some blood in it. There is a culture that was only sensitive to IV antibiotics. No p.o. antibiotics, it was resistant. We tried using gentamicin topical, which did not do much just because the family at that time did not want her back in the hospital yet, now they want her cleared of this infection, the urine and the PEG tube, pus is coming out. They are very concerned and upset about the persistence of her PEG tube site infection and that the urinary tract infection, she is completely bedridden. PAST MEDICAL HISTORY: Of being nonverbal, bedridden. She opens her eyes, that is her baseline due to CVA, hypertension, recurrent UTI. She has Fish catheter, sacral ulcer. She has PEG tube with PEG tube infections, this is her third one, now with the bloody urine with pus and cloudy to the Fish catheter and Fish bag. She has been taken care of at home by -[facility]. She is on a hospital bed at home. She had a PEG tube change about a month ago and a Fish catheter change about a month ago, so there is pus coming through the PEG tube site and urine looks like there is an infection. She gets PEG tube feedings. She has history of MRSA, hypertension, CVA, history of falls in the past with contracted upper and lower extremities, nonverbal. She has incontinence. She has a feeding tube. FAMILY HISTORY: Unknown. SOCIAL HISTORY: Nonsmoker, nondrinker, no drugs. ALLERGIES: NO KNOWN DRUG ALLERGIES. MEDICATIONS: She is on Cranberry AZO, Hydrogel. She is on gentamicin cream around the PEG tube site, nystatin, TwoCal Oral 237 mL PEG tube t.i.d. REVIEW OF SYSTEMS: Cannot do review of systems because she is nonverbal, but her baseline is that her eyes are open, she can nod her head. She has a PEG tube site with pus coming around it and blood, gravel and cloudiness in the urine. PHYSICAL EXAMINATION HEENT: Head atraumatic, throat is dry. Normocephalic head. Membranes were dry. NECK: Supple. HEART: Regular rate. Normal S1 and S2. LUNGS: Decreased breath sounds with clear auscultation with poor inspiration. ABDOMEN: There is a PEG tube with purulent drainage. No apparent tenderness, guarding or rebound. GENITOURINARY: There is a Fish catheter with blood and cloudiness in the urine, contracted upper and lower extremities. Sacral ulcer. No palpable lymphadenopathy cervically. SKIN: Poor turgor. LABORATORY DATA: She had multiple tests done. She has a urine that showed large leukocytes, too numerous to count white blood cells and large bacteria. She has a 136 sodium, potassium of 4.8, BUN of 22, creatinine of 0.3, GFR is greater than 60, sugar is 92, calcium is 9.3, phosphorus 3.5, magnesium 1.9, total bilirubin is 0.9. AST is 48, ALT is 21, alk phos is 99, total protein is 8, albumin is 3.9, globulin 4.1, INR is 1.09. White count 8.9, 14.7 hemoglobin, 44.7 hematocrit, and 224 platelets. There were consults for GI for PEG tube replacement. Dr. Omalley for ulcer evaluation and care. Infectious Disease for IV antibiotics, was started on cefepime, which was sensitive on the outpatient. Dr. Linares for UTI, Fish change. We will check her labs tomorrow. She has UTI, infection with PEG tube with pus coming around it. We will make sure she does not have any sepsis, we will find out in the next 24 to 48 hours. We are checking blood cultures and urine cultures, and we will keep her as comfortable as possible. Failed outpatient treatment. Edie Dunne DO MTDD
[2018-08-10] MEDS: Vancomycin 750mg 750 MG/250 ML BAG IVPB SCH ×3 (03:36→23:17)
[2018-08-10] MEDS: Cefepime 1gm in NS 100ml 1 GM/100 ML BAG IVPB SCH ×3 (05:27→22:16)
[2018-08-10 07:48] LABS: HEMOGLOBIN 12.2 g/dL (12.0-16.0); MEAN CELL VOLUME 88.8 fl (80.0-105.0); MEAN CORPUSCULAR HEMOGLOBIN 29.8 pg (25.0-35.0); MEAN CORPUSCULAR HGB CONC 33.5 g/dl (31.0-37.0); MEAN PLATELET VOLUME 10.1 fl (7.0-11.0); RBC 4.1 10^6/uL (3.5-6.1); RED CELL DISTRIBUTION WIDTH 14.7 % (11.5-14.5); WHITE BLOOD COUNT 8.4 10^3/uL (4.5-11.0)
[2018-08-10 07:58] LABS: ALBUMIN 3.5 g/dL (3.0-4.8); ALT/SGPT 41 U/L (7-56); AST/SGOT 42 U/L (14-36); BLOOD UREA NITROGEN 23 mg/dL (7-21); CALCIUM 8.6 mg/dL (8.4-10.5); GFR NON-AFRICAN AMERICAN > 60
--- NOTE | 2018-08-10 08:16 | CP.PCM.CON ---
History of Present Illness - History of Present Illness History of Present Illness: Asked by Dr. Dunne for a GI consultation on this patient. 83 year old female with history of CVA, HTN, sacral decubitus ulcer (bedbound), dementia who presents to hospital for evaluation of PEG tube infection. She is not able to participate in meaningful conversation, additional information obtained via chart review, discussion with nursing staff. She had recent hospitalization last month where PEG tube was replaced at bedside by Dr. Cross given concern for underlying infectious process at tube site. There is no reported abdominal pain, nausea, vomiting, fever/chills, weight loss, rectal bleeding, or change in bowel habits. Review of vitals from today are normal. Social history: non-smoker, no ETOH use Family history: not able to be obtained Review of Systems - Review of Systems Systems not reviewed;Unavailable: Dementia Past Patient History - Infectious Disease Hx of Infectious Diseases: MRSA - Past Social History Smoking Status: Unknown If Ever Smoked - CARDIAC Hx Cardiac Disorders: Yes Hx Hypertension: Yes - PULMONARY Hx Respiratory Disorders: No - NEUROLOGICAL HX Cerebrovascular Accident: Yes - HEENT Hx HEENT Problems: No - RENAL Hx Chronic Kidney Disease: No - ENDOCRINE/METABOLIC Hx Endocrine Disorders: No - HEMATOLOGICAL/ONCOLOGICAL Hx Blood Disorders: No - INTEGUMENTARY Hx Dermatological Problems: No - MUSCULOSKELETAL/RHEUMATOLOGICAL Hx Falls: Yes (past) - GASTROINTESTINAL Hx Gastrointestinal Disorders: No - GENITOURINARY/GYNECOLOGICAL Hx Incontinence: Yes - PSYCHIATRIC Hx Substance Use: No - SURGICAL HISTORY Other/Comment: FEEDING TUBE - ANESTHESIA Hx Anesthesia: Yes Hx Anesthesia Reactions: No Hx Malignant Hyperthermia: No Meds Allergies/Adverse Reactions: Allergies Allergy/AdvReac Type Severity Reaction Status Date / Time No Known Allergies Allergy Verified 01/07/18 19:39 - Medications Medications: Current Medications Amlodipine Besylate (Norvasc) 10 mg PEG DAILY [facility] Aspirin (Aspirin Chewable) 81 mg PEG DAILY [facility] Cyclobenzaprine HCl (Flexeril) 10 mg PEG HS [facility] Last Admin: 08/09/18 21:27 Dose: 10 mg Sodium Chloride (Sodium Chloride 0.45%) 1,000 mls @ 60 mls/hr IV .[id number] [facility] Last Admin: 08/09/18 18:22 Dose: 60 mls/hr Cefepime HCl (Maxipime 1gm) 1 gm in 100 mls @ 100 mls/hr IVPB Q8 [facility]; Protocol Last Admin: 08/10/18 05:27 Dose: 100 mls/hr Vancomycin HCl (Vancomycin 750 Mg In Ns) 750 mg in 250 mls @ 167 mls/hr IVPB Q12H [facility]; Protocol Stop: 08/18/18 23:31 Last Admin: 08/10/18 03:36 Dose: 167 mls/hr Metoprolol Tartrate (Lopressor) 25 mg PO BID [facility] Last Admin: 08/09/18 18:22 Dose: 25 mg Pantoprazole Sodium (Protonix Inj) 40 mg IVP DAILY [facility] Physical Exam - Constitutional Appears: Non-toxic, No Acute Distress - Head Exam Head Exam: NORMAL INSPECTION - Eye Exam Eye Exam: EOMI, Normal appearance - ENT Exam ENT Exam: Mucous Membranes Dry - Respiratory Exam Respiratory Exam: Clear to Auscultation Bilateral - Cardiovascular Exam Cardiovascular Exam: REGULAR RHYTHM, +S1, +S2 - GI/Abdominal Exam GI & Abdominal Exam: Normal Bowel Sounds, Soft Additional comments: non tender to palpation in four quadrants no palpable hepato/splenomegaly PEG site with granulation tissue, thick yellow discharge present - Extremities Exam Extremities exam: Positive for: normal inspection - Neurological Exam Additional comments: Patient not able to participate with neurological examination - Psychiatric Exam Psychiatric exam: Normal Affect, Normal Mood - Skin Skin Exam: Dry, Intact, Normal Color, Warm Results - Vital Signs Recent Vital Signs: Last Vital Signs Temp 97.7 F 08/09/18 22:21 Pulse 74 08/09/18 22:21 Resp 18 08/09/18 22:21 BP 109/73 08/09/18 22:21 Pulse Ox 95 08/09/18 22:21 - Labs Result Diagrams: 08/09/18 11:30 08/10/18 07:00 Labs: Laboratory Results - last 24 hr 08/09/18 08/09/18 08/09/18 11:30 11:30 11:30 WBC 8.9 D RBC 4.92 Hgb 14.7 D Hct 44.7 MCV 90.9 MCH 29.9 MCHC 32.9 RDW 14.8 H Plt Count 224 MPV 11.7 H Neut % (Auto) 79.7 H Lymph % (Auto) 12.3 L Glascock % (Auto) 5.5 Eos % (Auto) 2.3 Baso % (Auto) 0.2 Lymph # (Auto) 1.1 L Glascock # (Auto) 0.5 Eos # (Auto) 0.2 Baso # (Auto) 0.02 Absolute Neuts (auto) 7.05 H PT 12.3 INR 1.09 APTT 30.5 Sodium 136 Potassium 4.8 Chloride 102 Carbon Dioxide 23 Anion Gap 16 BUN 22 H Creatinine 0.3 L Est GFR ( Amer) > 60 Est GFR (Non-Af Amer) > 60 Random Glucose 92 Calcium 9.3 Phosphorus Magnesium Total Bilirubin 0.9 AST 48 H D ALT 31 Alkaline Phosphatase 99 Total Protein 8.0 Albumin 3.9 Globulin 4.1 Albumin/Globulin Ratio 1.0 L Urine Color Urine Appearance Urine pH Ur Specific Pinole Urine Protein Urine Glucose (UA) Urine Ketones Urine Blood Urine Nitrate Urine Bilirubin Urine Urobilinogen Ur Leukocyte Esterase Urine RBC Urine WBC Ur Epithelial Cells Urine Bacteria 08/09/18 08/09/18 08/10/18 11:30 12:00 07:00 WBC RBC Hgb Hct MCV MCH MCHC RDW Plt Count MPV Neut % (Auto) Lymph % (Auto) Glascock % (Auto) Eos % (Auto) Baso % (Auto) Lymph # (Auto) Glascock # (Auto) Eos # (Auto) Baso # (Auto) Absolute Neuts (auto) PT INR APTT Sodium 136 Potassium 4.5 Chloride 102 Carbon Dioxide 25 Anion Gap 13 BUN 23 H Creatinine 0.3 L Est GFR ( Amer) > 60 Est GFR (Non-Af Amer) > 60 Random Glucose 98 Calcium 8.6 Phosphorus 3.5 Magnesium 1.9 Total Bilirubin 1.0 AST 42 H ALT 41 Alkaline Phosphatase 102 Total Protein 7.0 Albumin 3.5 Globulin 3.5 Albumin/Globulin Ratio 1.0 L Urine Color Yellow Urine Appearance Cloudy Urine pH 6.5 Ur Specific Pinole 1.015 Urine Protein 100 H Urine Glucose (UA) Negative Urine Ketones Negative Urine Blood Moderate H Urine Nitrate Positive H Urine Bilirubin Negative Urine Urobilinogen 1.0 H Ur Leukocyte Esterase Large H Urine RBC 0 - 2 Urine WBC Tntc H Ur Epithelial Cells 0 - 2 Urine Bacteria Large Assessment & Plan - Assessment and Plan (Free Text) Assessment: HTN CVA Dementia PEG site discharge UTI CT imaging from last month reviewed by me showing no acute abdominal abscess, though study was non-contrast Plan: - NPO - Continue with antibiotic therapy as per ID - Follow up surgical and urology recommendations - Follow up tube site culture - taken in ED, likely to be colonized - No clinical features of abdominal abscess, however given recurrent drainage will obtain CT abdomen with IV contrast for additional evaluation - Will consider bedside tube exchange tomorrow - Will continue to monitor patient clinical course
--- NOTE | 2018-08-10 08:39 | CP.PCM.PN ---
Subjective - Date & Time of Evaluation Date of Evaluation: 08/10/18 Time of Evaluation: 07:00 - Subjective Subjective: General Surgery Pt seen and examined. No issues overnight. Pt is Non verbal. Objective - Vital Signs/Intake and Output Vital Signs (last 24 hours): Temp Pulse Resp BP Pulse Ox 97.7 F 74 18 109/73 95 08/09/18 22:21 08/09/18 22:21 08/09/18 22:21 08/09/18 22:21 08/09/18 22:21 Intake and Output: 08/10/18 08/10/18 06:59 18:59 Intake Total 0 Output Total 300 Balance -300 - Medications Medications: Current Medications Amlodipine Besylate (Norvasc) 10 mg PEG DAILY [facility] Aspirin (Aspirin Chewable) 81 mg PEG DAILY [facility] Cyclobenzaprine HCl (Flexeril) 10 mg PEG HS [facility] Last Admin: 08/09/18 21:27 Dose: 10 mg Sodium Chloride (Sodium Chloride 0.45%) 1,000 mls @ 60 mls/hr IV .[id number] [facility] Last Admin: 08/09/18 18:22 Dose: 60 mls/hr Cefepime HCl (Maxipime 1gm) 1 gm in 100 mls @ 100 mls/hr IVPB Q8 [facility]; Protocol Last Admin: 08/10/18 05:27 Dose: 100 mls/hr Vancomycin HCl (Vancomycin 750 Mg In Ns) 750 mg in 250 mls @ 167 mls/hr IVPB Q12H [facility]; Protocol Stop: 08/18/18 23:31 Last Admin: 08/10/18 03:36 Dose: 167 mls/hr Metoprolol Tartrate (Lopressor) 25 mg PO BID [facility] Last Admin: 08/09/18 18:22 Dose: 25 mg Pantoprazole Sodium (Protonix Inj) 40 mg IVP DAILY [facility] - Labs Labs: 08/10/18 07:00 08/10/18 07:00 PT 12.3 SECONDS (9.4-12.5) 08/09/18 11:30 INR 1.09 08/09/18 11:30 APTT 30.5 Seconds (26.9-38.3) 08/09/18 11:30 - Constitutional Appears: No Acute Distress, Cachectic - Head Exam Head Exam: ATRAUMATIC, NORMOCEPHALIC - Eye Exam Eye Exam: EOMI - Respiratory Exam Respiratory Exam: NORMAL BREATHING PATTERN. absent: Respiratory Distress - GI/Abdominal Exam GI & Abdominal Exam: Soft. absent: Distended, Tenderness - Extremities Exam Extremities Exam: Normal Capillary Refill. absent: Tenderness Additional comments: contracted x4 - Back Exam Additional comments: Well healing sacral ulcer. Skin tears on upper mid back - Skin Skin Exam: Dry, Warm Assessment and Plan - Assessment and Plan (Free Text) Assessment: 83F with healed sacral ulcer, skin tear on upper back Plan: Air mattress Turn Q2H heel protectors Optifoam dressing to Sacrum Mepilex with nonstick patch for skin tears. Follow up CT, GI plan D/W Dr. Shahram Salvador PGY4
[2018-08-10] MEDS ORDERED: Iohexol 350 MG/100 ML VIAL ONE (09:18)
--- NOTE | 2018-08-10 11:45 | CT ---
Date of service: 08/10/2018 PROCEDURE: CT Abdomen and Pelvis with contrast HISTORY: r/o abdominal abscess COMPARISON: None. TECHNIQUE: Contrast dose: 100 cc of Omni 350 Radiation dose: Total exam DLP = 968.9 mGy-cm. This CT exam was performed using one or more of the following dose reduction techniques: Automated exposure control, adjustment of the mA and/or kV according to patient size, and/or use of iterative reconstruction technique. FINDINGS: LOWER THORAX: Large hiatal hernia filled with fluid LIVER: Unremarkable. No gross lesion or ductal dilatation. GALLBLADDER AND BILE DUCTS: Unremarkable. PANCREAS: Unremarkable. No gross lesion or ductal dilatation. SPLEEN: Unremarkable. ADRENALS: Unremarkable. No mass. KIDNEYS AND URETERS: There is a 10 x 16 mm stone in the right UPJ. There is no hydronephrosis. Similar findings are seen on the left. VASCULATURE: Unremarkable. No aortic aneurysm. Aortic calcification BOWEL: Unremarkable. No obstruction. No gross mural thickening. There is a gastrostomy tube in the antrum of the stomach. APPENDIX: Normal appendix. PERITONEUM: Unremarkable. No free fluid. No free air. LYMPH NODES: Unremarkable. No enlarged lymph nodes. BLADDER: Unremarkable. REPRODUCTIVE: Calcified fibroids BONES: No acute fracture. OTHER FINDINGS: None. IMPRESSION: No evidence of intra-abdominal abscess. Bilateral renal pelvic/UPJ stones without hydronephrosis.
--- NOTE | 2018-08-10 12:10 | CON ---
DATE: 08/10/2018 The patient is in bed. CHIEF COMPLAINT: Possibly puss around the PEG tube site x1 day. HISTORY OF PRESENT ILLNESS: This is an 83-year-old female, with recent hospitalization, malfunctioning PEG tube placement, hypertension, cerebrovascular accident, aphagia, history of sacral ulcers, who is admitted now, was found to have puss around the PEG tube site. There has been no fevers reported. No chest pain and no diarrhea or constipation. PAST MEDICAL HISTORY: Significant for the patient had a cerebrovascular accident, hypertension, sacral ulcers, and recent hospitalization. PAST SURGICAL HISTORY: Significant for a PEG tube placement. ALLERGIES: THE PATIENT HAS NO KNOWN ALLERGIES. REVIEW OF SYSTEMS: A 12-point review of systems is performed. MEDICATIONS AT HOME: are reviewed. PHYSICAL EXAMINATION: GENERAL: The patient is in bed. No acute distress. VITAL SIGNS: Temperature of 98, blood pressure is 130/80, respiratory rate of 16, and heart rate of 86. HEENT: Unremarkable. NECK: Supple. LUNGS: Decreased breath sounds. HEART: Normal S1 and S2. ABDOMEN: Soft and nontender. No organomegaly. No rebound, no guarding. Around the PEG tube, there is purulent material oozing out. LABORATORY DATA: Laboratory examination reveals a white count of 8.9. The chemistries are noted; creatinine of 0.3 and AST is 48. Urinalysis is noted. Dr. Nascimento's consultation is noted. He says that the CAT scan from last month showed no acute changes. Dr. Wili Salvador's consultation is also reviewed. Dr. Domenic Dunne's history and physical examination is also reviewed. ASSESSMENT AND PLAN: An 83-year-old female with percutaneous endoscopic gastrostomy tube site infection and asymptomatic bacteriuria. I will treat the patient with short course of antibiotics with vancomycin and cefepime. Repeat CAT scan has been ordered. Cultures of the wound has been ordered and results are pending. Blood cultures are pending. Urine cultures are also pending. We will follow closely with you. Rafael Jefferson MD
--- NOTE | 2018-08-10 13:20 | PN ---
DATE: 08/10/2018 SUBJECTIVE: She is resting comfortable in her bed. Her eyes are open, she looks at me, she understands what I am saying but she is nonverbal. She has a discharge from her feeing tube, PEG tube, very vague cloudy urine with a UTI. She has old CVA. She is bedridden with a sacral ulcer. Also Fish catheter. She is currently on aspirin, Flexor, Lopressor, Maxipime, Norvasc, Protonix, IV fluids, and vancomycin. PHYSICAL EXAMINATION: VITAL SIGNS: She has 97.7 temperature, 102 pulse, 112/78 blood pressure, 18 respiratory rate, 95% O2 sat. HEENT: Head is atraumatic and normocephalic. HEART: Regular rate. LUNGS: Decreased breath sounds. Poor expiration but no wheezes, rhonchi, or rales. ABDOMEN: Soft, obese, and nontender. The PEG tube is in place with pus coming round it. Urine, has a Fish in the bladder with pus and blood yesterday and it was very cloudy. EXTREMITIES: Quite contracted. No edema. There is a large sacral ulcer. LABORATORY DATA: White count 8.4, hemoglobin 12.2, hematocrit 36.4, and platelets are 307. INR 1.09. Sodium 136, potassium 4.5, BUN 23, creatinine 0.3, GFR is greater than 60, sugar is 98, calcium is 8.6, phosphorus 3.5, magnesium 1.9, total bili is 1, AST is 42, ALT is 41, alk phos 102, total protein 7. Urine has large leukocyte, large blood. ASSESSMENT AND PLAN: She is being seen by Surgery, Gastrointestinal, Infectious Disease. She has multiple issues. We will have to probably remove that Fish catheter. Probably will have to remove the feeding tube. We have to get them replaced. IV antibiotics. Skin care of the sacral ulcer. She had an infection that showed resistance to all p.o. antibiotics and that is why she is in the hospital for IV antibiotics. Sensitive to Maxipime. Domenic Dunne DO [facility] # [id number] MTDBlas
[2018-08-10] MEDS: Sodium Chloride 0.45% 1,000 ML IV SCH (18:23)
[2018-08-11] MEDS: Sodium Chloride 0.45% 1,000 ML IV SCH (02:51)
[2018-08-11] MEDS: Cefepime 1gm in NS 100ml 1 GM/100 ML BAG IVPB SCH ×3 (05:08→21:36)
[2018-08-11 07:22] LABS: HEMOGLOBIN 11.1 g/dL (12.0-16.0); MEAN CELL VOLUME 89.7 fl (80.0-105.0); MEAN CORPUSCULAR HEMOGLOBIN 28.5 pg (25.0-35.0); MEAN CORPUSCULAR HGB CONC 31.7 g/dl (31.0-37.0); RBC 3.9 10^6/uL (3.5-6.1); WHITE BLOOD COUNT 8.7 10^3/uL (4.5-11.0)
[2018-08-11 07:38] LABS: ALB/GLOB RATIO 0.9 (1.1-1.8); ALBUMIN 3.2 g/dL (3.0-4.8); ALT/SGPT 34 U/L (7-56); AST/SGOT 29 U/L (14-36); BLOOD UREA NITROGEN 17 mg/dL (7-21); CALCIUM 8.4 mg/dL (8.4-10.5); GFR NON-AFRICAN AMERICAN > 60
--- NOTE | 2018-08-11 08:36 | CP.PCM.PN ---
Subjective - Date & Time of Evaluation Date of Evaluation: 08/11/18 Time of Evaluation: 08:34 - Subjective Subjective: Gen Surg: Dr Omalley PT S&E on floor. NAEO. Pt is nonverbal. Local wound care provided by nursing, sacral ulcer is epithelialized and healing well. PEG site being managed by GI; No evidence of intra-abdominal abscess on CT. Objective - Vital Signs/Intake and Output Vital Signs (last 24 hours): Temp Pulse Resp BP Pulse Ox 99.9 F H 88 20 132/79 94 L 08/10/18 21:48 08/10/18 21:48 08/10/18 21:48 08/10/18 21:48 08/10/18 21:48 Intake and Output: 08/11/18 08/11/18 06:59 18:59 Intake Total 0 Output Total 725 Balance -725 - Medications Medications: Current Medications Amlodipine Besylate (Norvasc) 10 mg PEG DAILY [facility] Last Admin: 08/10/18 09:34 Dose: 10 mg Aspirin (Aspirin Chewable) 81 mg PEG DAILY [facility] Last Admin: 08/10/18 09:34 Dose: 81 mg Cyclobenzaprine HCl (Flexeril) 10 mg PEG HS [facility] Last Admin: 08/10/18 22:16 Dose: 10 mg Sodium Chloride (Sodium Chloride 0.45%) 1,000 mls @ 60 mls/hr IV .[id number] [facility] Last Admin: 08/11/18 02:51 Dose: Not Given Cefepime HCl (Maxipime 1gm) 1 gm in 100 mls @ 100 mls/hr IVPB Q8 [facility]; Protocol Last Admin: 08/11/18 05:08 Dose: 100 mls/hr Vancomycin HCl (Vancomycin 750 Mg In Ns) 750 mg in 250 mls @ 167 mls/hr IVPB Q12H [facility]; Protocol Stop: 08/18/18 23:31 Last Admin: 08/10/18 23:17 Dose: 167 mls/hr Metoprolol Tartrate (Lopressor) 25 mg PO BID [facility] Last Admin: 08/10/18 18:26 Dose: 25 mg Pantoprazole Sodium (Protonix Inj) 40 mg IVP DAILY [facility] Last Admin: 08/10/18 09:33 Dose: 40 mg - Labs Labs: 08/11/18 07:00 08/11/18 07:00 PT 12.3 SECONDS (9.4-12.5) 08/09/18 11:30 INR 1.09 08/09/18 11:30 APTT 30.5 Seconds (26.9-38.3) 08/09/18 11:30 - Constitutional Appears: Chronically Ill - ENT Exam ENT Exam: Mucous Membranes Dry - Respiratory Exam Respiratory Exam: absent: Respiratory Distress - GI/Abdominal Exam GI & Abdominal Exam: Soft. absent: Distended - Neurological Exam Neurological Exam: Altered Assessment and Plan - Assessment and Plan (Free Text) Assessment: 83F admitted for mgmt of PEG site infection; Sx consulted for decubitus Plan: cont local wound care on decubitus mgmt of PEG per GI - no intra-abdominal abscess noted no further surgical intervention please reconsult as necessary - but we will cont to follow wound peripherally while pt in house d/w Dr Shahram Kong, PGY4
--- NOTE | 2018-08-11 09:21 | PCM.URO ---
Urology Progress Note - Subjective Abdominal Pain: Yes (hematuria/ no blood today / can discuss work up ) - Objective Lab Results Last 24 Hours: Laboratory Results - last 24 hr 08/10/18 08/11/18 08/11/18 21:45 07:00 07:00 WBC 8.7 RBC 3.90 Hgb 11.1 L Hct 35.0 L MCV 89.7 MCH 28.5 MCHC 31.7 RDW 15.0 H Plt Count 263 MPV 10.0 Sodium 136 Potassium 4.6 Chloride 106 Carbon Dioxide 23 Anion Gap 12 BUN 17 Creatinine 0.3 L Est GFR ( Amer) > 60 Est GFR (Non-Af Amer) > 60 POC Glucose (mg/dL) 111 H Random Glucose 92 Calcium 8.4 Total Bilirubin 1.2 AST 29 ALT 34 Alkaline Phosphatase 93 Total Protein 6.6 Albumin 3.2 Globulin 3.4 Albumin/Globulin Ratio 0.9 L Intake & Output: Intake & Output 08/10/18 08/11/18 08/11/18 18:59 06:59 18:59 Intake Total 0 Output Total 725 Balance -725 Intake: Oral 0 Output: Urine 725 Urine, Voided 725 Other: # Bowel Movements 1 Vital Signs: Vital Signs - 24 hr 08/10/18 08/10/18 08/10/18 09:34 14:00 18:26 Temperature 99.3 F Pulse Rate 102 H 95 H 96 H Respiratory 18 Rate Blood Pressure 112/78 122/73 122/72 O2 Sat by Pulse 97 Oximetry 08/10/18 21:48 Temperature 99.9 F H Pulse Rate 88 Respiratory 20 Rate Blood Pressure 132/79 O2 Sat by Pulse 94 L Oximetry
[2018-08-11] MEDS: Vancomycin 750mg 750 MG/250 ML BAG IVPB SCH (12:50)
--- NOTE | 2018-08-11 13:15 | PN ---
DATE: 08/11/2018 SUBJECTIVE: I saw her resting comfortably in bed. No acute distress. She is being seen by Infectious Disease, Surgery, GI. She has pus coming around her gastrostomy tube site with bacteriuria. She is on vancomycin and cefepime right now. They exchanged her Fish catheter already. I am hoping that GI will change her PEG tube catheter, where the pus is coming from. further sacral ulcer, skin tear, have Optifoam dressing applied. PHYSICAL EXAMINATION: VITAL SIGNS: She has 99.9 temperature, 88 pulse, 132/79 blood pressure, 20 respiratory rate, 94% O2 sat. HEENT: Head is atraumatic, normocephalic. HEART: Regular rate. LUNGS: Decreased breath sounds. ABDOMEN: Soft, obese. Feeding tube. Fish catheter. EXTREMITIES: Contracted. LABORATORY DATA: She has 8.7 white count, 11.1 hemoglobin, 35 hematocrit with 263 platelets. Sodium 136, potassium 4.6, BUN 17, creatinine 0.3, GFR is greater than 60, sugar is 92, calcium is 8.4. Total bili is 1.2, AST is 29, ALT is 34, alk phos is 93. ASSESSMENT AND PLAN: We will continue aggressive treatment and care, intravenous antibiotics, intravenous fluids, aspirin, Flexeril, Lopressor, Maxipime, Norvasc, Protonix, and vancomycin. Change of feeding tube. Continue with the antibiotics, skin care. Continue with aggressive treatment and care of Bonny Ott. Discussed with the family in length in the hospital bed. Domenic Dunne DO MTDBlas
--- NOTE | 2018-08-11 18:41 | CON ---
DATE: 08/11/2018 UROLOGY CONSULT REASON FOR CONSULTATION: Hematuria. HISTORY OF PRESENT ILLNESS: The patient was admitted to the hospital per Dr. Dunne. She has an indwelling Fish catheter currently at home she had apparently as an outpatient, but right now that is not known. Apparently as an outpatient she had encountered blood in the urine, but right now it is clear. See the plans listed below. PAST MEDICAL AND SURGICAL HISTORY: All listed on the chart. REVIEW OF SYSTEMS: Everything noted. PHYSICAL EXAMINATION: GENERAL: A well-nourished female, she is currently resting. VITAL SIGNS: Noted. GENITOURINARY: The Fish catheter is in place, it is actually draining clear yellow urine. DIAGNOSES: Apparent gross hematuria, but not witnessed here. We did discuss further options. It is a little bit of a difficult situation left to discuss the options regarding further diagnostic studies and workup. PLAN: From the Urology standpoint, at this point, we are going to consider further testing, but right now we are going to observe the patient before we do more do further testing. From the Urology standpoint; 1. We will maintain the Fish catheter. 2. Further plans will follow. Manuel Linares MD
--- NOTE | 2018-08-11 22:20 | PN ---
DATE: 08/11/2018 SUBJECTIVE: The patient is in bed, in no acute distress, nontoxic. No fevers, chronically ill, debilitated. PHYSICAL EXAMINATION: VITAL SIGNS: T-max was 99.9 and blood pressure is 112/80, respiratory rate of 20, heart rate is 96. HEENT: Unremarkable. NECK: Supple. LUNGS: Decreased breath sounds. HEART: Normal S1, S2. ABDOMEN: Soft, nontender. PEG tube site is noted. LABORATORY DATA: Reveals the patient to have white count of 8.7 and hemoglobin of 11. Chemistries reveal BUN of 17, creatinine of 0.3. Urinalysis is noted, too numerous to count wbc's, large bacteria. Microbiology reveals the PEG tube site has Pseudomonas, sensitive to meropenem, resistant to Cipro, sensitive to cefepime, and the urine culture also has Pseudomonas sensitive to meropenem. ASSESSMENT AND PLAN: This is an 83-year-old female with percutaneous endoscopic gastrostomy tube infection with Pseudomonas and asymptomatic bacteriuria, on cefepime, today is day #3, would complete 5 days of cefepime. If the percutaneous endoscopic gastrostomy tube site infection recurs with Pseudomonas, he will require removal of the percutaneous endoscopic gastrostomy tube site for . Rafael Jefferson MD
[2018-08-12] MEDS: Cefepime 1gm in NS 100ml 1 GM/100 ML BAG IVPB SCH ×3 (05:47→22:25)
[2018-08-12 07:26] LABS: MEAN CELL VOLUME 89.8 fl (80.0-105.0); MEAN CORPUSCULAR HEMOGLOBIN 28.7 pg (25.0-35.0); MEAN PLATELET VOLUME 9.8 fl (7.0-11.0); RBC 3.83 10^6/uL (3.5-6.1); RED CELL DISTRIBUTION WIDTH 15.1 % (11.5-14.5); WHITE BLOOD COUNT 7.8 10^3/uL (4.5-11.0)
[2018-08-12 07:59] LABS: ALB/GLOB RATIO 0.9 (1.1-1.8); ALBUMIN 3.2 g/dL (3.0-4.8); ALT/SGPT 32 U/L (7-56); AST/SGOT 28 U/L (14-36); BLOOD UREA NITROGEN 18 mg/dL (7-21); CALCIUM 8.4 mg/dL (8.4-10.5); GFR NON-AFRICAN AMERICAN > 60
[2018-08-12] MEDS: Pantoprazole 40 mg Susp UD PEG SCH (10:54)
--- NOTE | 2018-08-12 12:48 | CP.PCM.PN ---
<BalajiLolita - Last Filed: 08/12/18 12:54> Subjective - Date & Time of Evaluation Date of Evaluation: 08/12/18 Time of Evaluation: 12:45 - Subjective Subjective: Gastroenterology Fellow/PGY6 Progress Note Patient resting comfortably. Nursing denies acute events overnight. PEG tube in place with tube feedings running without complication. A 12-point review of systems unable to be completed in setting of dementia and non-verbal status. Objective - Vital Signs/Intake and Output Vital Signs (last 24 hours): Temp Pulse Resp BP Pulse Ox 98.9 F 96 H 20 124/80 98 08/12/18 07:00 08/12/18 10:55 08/12/18 07:00 08/12/18 10:55 08/12/18 07:00 Intake and Output: 08/12/18 08/12/18 06:59 18:59 Intake Total 1560 Output Total 700 Balance 860 - Medications Medications: Current Medications Amlodipine Besylate (Norvasc) 10 mg PEG DAILY [facility] Last Admin: 08/12/18 10:54 Dose: 10 mg Aspirin (Aspirin Chewable) 81 mg PEG DAILY [facility] Last Admin: 08/12/18 10:54 Dose: 81 mg Cyclobenzaprine HCl (Flexeril) 10 mg PEG HS [facility] Last Admin: 08/11/18 21:36 Dose: 10 mg Sodium Chloride (Sodium Chloride 0.45%) 1,000 mls @ 60 mls/hr IV .[id number] [facility] Last Admin: 08/11/18 02:51 Dose: Not Given Cefepime HCl (Maxipime 1gm) 1 gm in 100 mls @ 100 mls/hr IVPB Q8 [facility]; Protocol Last Admin: 08/12/18 05:47 Dose: 100 mls/hr Metoprolol Tartrate (Lopressor) 25 mg PO BID [facility] Last Admin: 08/12/18 10:55 Dose: 25 mg Pantoprazole Sodium (Protonix Susp) 40 mg PEG DAILY [facility] Last Admin: 08/12/18 10:54 Dose: 40 mg - Labs Labs: 08/12/18 07:00 08/12/18 07:00 PT 12.3 SECONDS (9.4-12.5) 08/09/18 11:30 INR 1.09 08/09/18 11:30 APTT 30.5 Seconds (26.9-38.3) 08/09/18 11:30 - Constitutional Appears: Non-toxic, No Acute Distress - Head Exam Head Exam: ATRAUMATIC, NORMOCEPHALIC - Eye Exam Eye Exam: EOMI, PERRL. absent: Scleral icterus Pupil Exam: PERRL. absent: Miosis, Mydriatic - ENT Exam ENT Exam: Mucous Membranes Moist, Normal Oropharynx - Neck Exam Neck Exam: Full ROM, Normal Inspection - Respiratory Exam Respiratory Exam: Clear to Ausculation Bilateral. absent: Rales, Rhonchi, Wheezes - Cardiovascular Exam Cardiovascular Exam: RRR, +S1, +S2. absent: Gallop, Rubs - GI/Abdominal Exam GI & Abdominal Exam: Soft, Normal Bowel Sounds. absent: Distended, Firm, Guarding, Rigid, Tenderness, Organomegaly, Rebound Additional comments: PEG site C/D/I LUQ - Extremities Exam Extremities Exam: Normal Inspection, Pedal Edema - Neurological Exam Neurological Exam: Alert, Awake - Psychiatric Exam Psychiatric exam: Normal Affect, Normal Mood - Skin Skin Exam: Dry, Intact, Normal Color, Warm Assessment and Plan - Assessment and Plan (Free Text) Assessment: 83 year old female with PMH of PEG placement / CVA 2014 (non-verbal, bedbound) , HTN, chronic sacral decubitus ulcers, and oral thrush presenting for evaluation of discharge at PEG site. Recent PEG exchange 06/2018 for site drainage with CT A/P without contrast showing no intra-abdominal pathology. Plan: -CT A/P IV contrast- no intra-abdominal abscess -performed bedside PEG exchange yesterday on Saturday08/11/18 -ID managing- PEG site culture-pseudomonas, on cefepime -tolerating tube feeds -thank you for opportunity to participate in the care of this patient <Anthony Nascimento - Last Filed: 08/12/18 16:29> Objective - Vital Signs/Intake and Output Vital Signs (last 24 hours): Temp Pulse Resp BP Pulse Ox 99.1 F 86 20 136/61 93 L 08/12/18 14:00 08/12/18 14:00 08/12/18 14:00 08/12/18 14:00 08/12/18 14:00 Intake and Output: 08/12/18 08/12/18 06:59 18:59 Intake Total 1560 Output Total 700 400 Balance 860 -400 - Medications Medications: Current Medications Amlodipine Besylate (Norvasc) 10 mg PEG DAILY [facility] Last Admin: 08/12/18 10:54 Dose: 10 mg Aspirin (Aspirin Chewable) 81 mg PEG DAILY [facility] Last Admin: 08/12/18 10:54 Dose: 81 mg Cyclobenzaprine HCl (Flexeril) 10 mg PEG HS [facility] Last Admin: 08/11/18 21:36 Dose: 10 mg Sodium Chloride (Sodium Chloride 0.45%) 1,000 mls @ 60 mls/hr IV .[id number] [facility] Last Admin: 08/11/18 02:51 Dose: Not Given Cefepime HCl (Maxipime 1gm) 1 gm in 100 mls @ 100 mls/hr IVPB Q8 [facility]; Protocol Last Admin: 08/12/18 13:13 Dose: 100 mls/hr Metoprolol Tartrate (Lopressor) 25 mg PO BID [facility] Last Admin: 08/12/18 10:55 Dose: 25 mg Pantoprazole Sodium (Protonix Susp) 40 mg PEG DAILY [facility] Last Admin: 08/12/18 10:54 Dose: 40 mg - Labs Labs: 08/12/18 07:00 08/12/18 07:00 PT 12.3 SECONDS (9.4-12.5) 08/09/18 11:30 INR 1.09 08/09/18 11:30 APTT 30.5 Seconds (26.9-38.3) 08/09/18 11:30 Attending/Attestation - Attestation I have fully participated in the care of the patient.: Yes I have reviewed all pertinent clinical information, including history, physical exam and plan: Yes Notes (Text): 08/12/18 16:28 CVA HTN Dysphagia s/p PEG Gastrostomy site infection CT imaging reviewed by me showing no presence of intraabdominal abscess - Feeding tube was changed at bedside today given pseudomonas infection, though likely colonization - Continue with antibiotic therapy as per ID - Continue with tube feeds as tolerated - No further planned GI intervention, will sign off case. Please reconsult as necessary, thank you.
--- NOTE | 2018-08-12 13:03 | PN ---
DATE: 08/12/2018 SUBJECTIVE: She is maybe a little bit more responsive when I talk to her today. Her eyes opened and looked at me. It is good for her. She is on aspirin, Flexeril, Lopressor, Maxipime IV, Norvasc, Protonix, and IV fluids. I believe the Fish catheter was changed and the feeding tube was changed, which is great. She is still having a little bit of discharge. PHYSICAL EXAMINATION: VITAL SIGNS: She has 98.9 temperature, 96 pulse, 142/79 blood pressure, 20 respiratory rate, 98% O2 sat on room air. HEENT: Head is atraumatic, normocephalic. She is opening her eyes. HEART: Regular rate. LUNGS: Decreased breath sounds. ABDOMEN: Soft, nontender. Positive bowel sounds. EXTREMITIES: No edema. LABORATORY DATA: She has 7.8 white count, 11 hemoglobin, 34.4 hematocrit with 275 platelets. She has sodium 136, potassium 4.4, BUN is 18, creatinine 0.3, GFR is greater than 60, sugar is 99, calcium is 8.4. Total bili is 1, AST is 28, ALT is 32, alk phos 98, total protein 6.7. Urine was horrible, large bacteria, too numerous to count white count, large leukocyte and red blood cells. ASSESSMENT AND PLAN: She is being seen by Urology, Infectious Disease, and Surgery. She had a gastrostomy tube infection, Pseudomonas and asymptomatic bacteremia, on cefepime, needs two more days of antibiotics. We will continue with aggressive treatment and care, intravenous antibiotics, checking her labs, and hopefully she will improve. Domenic Dunne DO
--- NOTE | 2018-08-12 13:10 | PCM.PROC ---
Procedures Attestation:: I certify that I have explained the specified Operation(s) or Procedure(s), risks, benefits and reasonable alternatives to the Patient and/or other person responsible. The opportunity was given to ask questions and all questions answered - Feeding Tube Replacement Type of Tube: gastrostomy Insertion Site Prior to Procedure: GI fluid leaking Chinese Tube Size (F): 20 Balloon Size (mis): 5 Verification of Placement: other Tube Secured by: tape/dressing Additional comments: Gastroenterology Fellow/PGY6 Progress Note for PEG exchange Bedside PEG exchange performed with removal of prior Balloon gastrostomy tube and placement of a 20French Balloon gastrostomy tube. Proper aspiration of fluid received. Dressing in place. Tube feeds initiated. Okay to use gastrostomy tube for medication administration. Estimated Blood Loss- none
--- NOTE | 2018-08-12 22:58 | PN ---
DATE: 08/12/2018 SUBJECTIVE: The patient is seen in bed, in no acute distress, nontoxic. PHYSICAL EXAMINATION: VITAL SIGNS: Temperature is 99, blood pressure is 130/60, respiratory rate of 18. HEENT: Unremarkable. NECK: Supple. LUNGS: Have decreased breath sounds. HEART: Normal S1, S2. ABDOMEN: Soft. LABORATORY EXAMINATION: Reveals a white count of 7.8, hemoglobin of 11. Chemistries are noted. Urinalysis is noted. Microbiology is reviewed. The patient has a PEG tube site with Pseudomonas. Urine has Pseudomonas. The patient's procedure note by Dr. Nascimento is reviewed for PEG tube placement is done. ASSESSMENT AND PLAN: Percutaneous endoscopic gastrostomy tube infection with Pseudomonas. Now, it has been changed. No further antibiotics necessary. Rafael Jefferson MD
[2018-08-13] MEDS: Sodium Chloride 0.45% 1,000 ML IV SCH ×2 (03:00→21:24)
[2018-08-13] MEDS: Cefepime 1gm in NS 100ml 1 GM/100 ML BAG IVPB SCH ×3 (06:19→21:24)
[2018-08-13 06:52] LABS: HEMOGLOBIN 11.1 g/dL (12.0-16.0); MEAN CELL VOLUME 89.1 fl (80.0-105.0); MEAN CORPUSCULAR HEMOGLOBIN 28.8 pg (25.0-35.0); MEAN CORPUSCULAR HGB CONC 32.4 g/dl (31.0-37.0); MEAN PLATELET VOLUME 9.7 fl (7.0-11.0); RBC 3.85 10^6/uL (3.5-6.1); RED CELL DISTRIBUTION WIDTH 14.9 % (11.5-14.5); WHITE BLOOD COUNT 8.6 10^3/uL (4.5-11.0)
[2018-08-13 07:04] LABS: ALB/GLOB RATIO 0.9 (1.1-1.8); ALBUMIN 3.2 g/dL (3.0-4.8); ALT/SGPT 32 U/L (7-56); AST/SGOT 25 U/L (14-36); BLOOD UREA NITROGEN 15 mg/dL (7-21); CALCIUM 8.4 mg/dL (8.4-10.5); GFR NON-AFRICAN AMERICAN > 60
--- NOTE | 2018-08-13 10:50 | PN ---
DATE: 08/13/2018 SUBJECTIVE: I understand Dr. Jefferson wants her off the IV antibiotics. This is the fifth time going back and forth hospitals with a feeding tube and a Fish catheter infection with pus and changing of the tubes. Family is very upset about the multiple times going back and forth and multiple infections, and they want some kind of guarantee from me that this would not happen again, they do not know how to handle that because it could happen again. She is bedridden and they have caregivers, but she is on IV antibiotics. She is improving. I want to give her few more days of IV antibiotics. PHYSICAL EXAMINATION: VITAL SIGNS: She has 98.4 temperature, 90 pulse, _/82 blood pressure, 20 respiratory rate, 90% O2 sat. GENERAL: She is alert, her eyes, she is looking at me, that is her baseline. HEART: Regular rate. LUNGS: Decreased breath sounds. ABDOMEN: Soft with feeding tube. EXTREMITIES: Contracted. She has a Fish catheter. LABORATORY DATA: She has 8.6 white count, 11.1 hemoglobin, 34.3 hematocrit with 277 platelets. Sodium 136, potassium 4.3, BUN 15, creatinine 0.3, GFR is 60, sugar is 96, calcium is 8.4. Total bili is 1, AST is 25, ALT is 32, alk phos 97, total protein 6.6. ASSESSMENT AND PLAN: I am hoping possibly we will get her discharged on , which is tomorrow. So, one more day of intravenous antibiotics and intravenous fluids, and that is my plan. Discharge her on , tomorrow. Bonny Ott comes in for the fifth time in about six months to different hospitals for her feeding tube and Fish catheter infections and changing of them. I am hoping this will be her last one for a while. Domenic Dunne DO MTDBlas
[2018-08-13] MEDS: Pantoprazole 40 mg Susp UD PEG SCH (10:54)
--- NOTE | 2018-08-13 23:52 | PN ---
DATE: 08/13/2018 SUBJECTIVE: The patient is in bed, in no acute distress, nontoxic. PHYSICAL EXAMINATION: VITAL SIGNS: Temperature is 98, blood pressure is 113/70, respiratory rate of 18, heart rate of 110. HEENT: Unremarkable. NECK: Supple. LUNGS: Have decreased breath sounds. HEART: Normal S1, S2. ABDOMEN: Soft, nontender. LABORATORY EXAMINATION: Reveals the white count is 8.6, hemoglobin of 11, BUN of 15, creatinine of 0.3. Urinalysis is noted. Microbiology is reviewed. Review of orders reveals the patient to be on cefepime. Dr. Domenic Dunne's progress note is reviewed. ASSESSMENT AND PLAN: An 83-year-old female status post endoscopic gastrostomy tube infection with Pseudomonas which was changed upon discharge. No further antibiotic is necessary, and this patient is with very little poor quality of life with hypertension, cardiac disease, percutaneous endoscopic gastrostomy tube, cerebrovascular accident, and overall prognosis is poor. Rafael Jefferson MD
[2018-08-14] MEDS: Cefepime 1gm in NS 100ml 1 GM/100 ML BAG IVPB SCH (06:05)
[2018-08-14 07:19] LABS: HEMOGLOBIN 11.6 g/dL (12.0-16.0); MEAN CELL VOLUME 88.8 fl (80.0-105.0); MEAN CORPUSCULAR HEMOGLOBIN 28.9 pg (25.0-35.0); MEAN CORPUSCULAR HGB CONC 32.6 g/dl (31.0-37.0); MEAN PLATELET VOLUME 9.4 fl (7.0-11.0); RBC 4.01 10^6/uL (3.5-6.1); RED CELL DISTRIBUTION WIDTH 14.9 % (11.5-14.5); WHITE BLOOD COUNT 7.7 10^3/uL (4.5-11.0)
[2018-08-14 07:40] LABS: ALB/GLOB RATIO 0.9 (1.1-1.8); ALBUMIN 3.3 g/dL (3.0-4.8); ALT/SGPT 32 U/L (7-56); AST/SGOT 30 U/L (14-36); BLOOD UREA NITROGEN 16 mg/dL (7-21); CALCIUM 8.6 mg/dL (8.4-10.5); GFR NON-AFRICAN AMERICAN > 60
[2018-08-14 08:21] VITALS: PULSE 94; RESP 16; TEMP 98; O2SAT 99
[2018-08-14] MEDS: Pantoprazole 40 mg Susp UD PEG SCH (09:29)
[2018-08-14 09:31] VITALS: BP 130/76
--- NOTE | 2018-08-14 15:16 | PN ---
DATE: 08/14/2018 SUBJECTIVE: The patient is in bed, in no acute distress, nontoxic. PHYSICAL EXAMINATION: VITAL SIGNS: Temperature is 98, blood pressure is 130/70, and respiratory rate of 18. HEENT: Unremarkable. NECK: Supple. LUNGS: Have decreased breath sounds. HEART: Normal S1 and S2. ABDOMEN: Soft. LABORATORY EXAMINATION: Reveals the patient's white count is 7.7. Chemistries are noted. Urinalysis is noted and examination of wound is clean. Microbiology with the Pseudomonas in the urine and Pseudomonas in the PEG site. ASSESSMENT AND PLAN: An 83-year-old female with a status post percutaneous endoscopic gastrostomy tube placement, has Pseudomonas and cellulitis currently, the patient with hypertension, cardiac disease and cerebrovascular accident, overall poor condition. We will discontinue this and the cefepime and no further antibiotics indicated. Rafael Jefferson MD
--- NOTE | 2018-08-14 20:10 | DS ---
HOSPITAL COURSE: She is going to be discharged today. She had IV antibiotics for her PEG tube site infection and the urinary tract infection. She is now going to be off the antibiotics. She is alert. She is back to her baseline. PHYSICAL EXAMINATION VITAL SIGNS: A 98 temperature, 94 pulse, 133/80 blood pressure, 16 respiratory rate, and 99% O2 sat. HEAD: Atraumatic, normocephalic. HEART: Regular rate. LUNGS: Decreased breath sounds. ABDOMEN: Soft, obese. Positive feeding tube. She has a Fish catheter. EXTREMITIES: Contracted due to the sacral ulcer. ASSESSMENT AND PLAN: She is going to go home to a hospital bed. She will have outpatient visiting nurses to help her with her wound care. She has also had a feeding tube change and a Fish catheter change and Infectious Disease says that she can be taken off the IV antibiotics and should be discharged home today. Domenic Dunne DO
== END 2018-08-14 12:47 | disposition home or self-care (01) | DRG 394 ==
LOC: ED 10:11 → ERH 11:04 → 5RSO 16:16
PROVIDERS: ADMIT Family Medicine; ATTEND Family Medicine
PROC: 0D20XUZ Change Feeding Device in Upper Intestinal Tract, External Approach (ICD-10-PCS; principal; 2018-08-12)
DX: K94.22 Gastrostomy infection (principal); T83.518A Infection and inflammatory reaction due to other urinary catheter, initial encounter; N39.0 Urinary tract infection, site not specified; L08.9 Local infection of the skin and subcutaneous tissue, unspecified; B96.5 Pseudomonas (aeruginosa) (mallei) (pseudomallei) as the cause of diseases classified elsewhere; I10 Essential (primary) hypertension; F03.90 Unspecified dementia, unspecified severity, without behavioral disturbance, psychotic disturbance, mood disturbance, and anxiety; L89.159 Pressure ulcer of sacral region, unspecified stage; R31.0 Gross hematuria; Y84.6 Urinary catheterization as the cause of abnormal reaction of the patient, or of later complication, without mention of misadventure at the time of the procedure; Z74.01 Bed confinement status; Z79.82 Long term (current) use of aspirin